=== PATIENT | female | born 1970 | race Caucasian/White ===

== ENCOUNTER → 2020-06-26 15:32 | Outpatient (CLI) | payer BC, SELFPAY ==
--- NOTE | ~2020-06-26 | US_ITS ---
EXAMINATION: US thyroid DATE: 06/26/2020 15:57 INDICATION: Genetic carrier of other disease. TECHNIQUE: Multiple ultrasound images of the thyroid were obtained. COMPARISON: Chest CT 09/26/2018 FINDINGS: The right thyroid lobe measures 3.6 x 1.3 x 1.3 cm. The left thyroid lobe measures 3.4 x 0.7 x 0.9 c m. The thyroid demonstrates heterogeneous echogenicity. Vascularity is normal. In the left thyroid l obe, there is a 6 mm solid, hyperechoic, uoazs-iocu-owzd nodule with ill-defined margin without echog enic foci (TI-RADS TR3). IMPRESSION: 1. Small thyroid nodule, likely not clinically significant. No follow-up is needed. Reviewed, dictated and finalized at location A. IMPRESSION: 1. Small thyroid nodule, likely not clinically significant. No follow-up is nee ded.
== END ==
PROVIDERS: Visit Provider Family Medicine
DX: Z14.8 Genetic carrier of other disease (principal); E04.9 Nontoxic goiter, unspecified
CPT/HCPCS: 76536

== ENCOUNTER 2020-07-19 02:40 | Outpatient (CLI) | payer BC, SELFPAY ==
[2020-07-19 23:12] LABS: SARS-CoV-2 RNA PCR Negative
== END 2020-07-19 02:41 | disposition home or self-care (01) ==
LOC: ANHCOVIDDT 02:40
PROVIDERS: PCP Family Medicine; Visit Provider Internal Medicine Gastroenterology
DX: Z01.812 Encounter for preprocedural laboratory examination (principal); Z20.828 Contact with and (suspected) exposure to other viral communicable diseases
CPT/HCPCS: 87635; C9803; U0003

== ENCOUNTER 2020-07-22 00:14 | Day surgery (SDC) | payer BC, SELFPAY ==
[2020-07-16 11:19] VITALS: BMI 27.1
[2020-07-22] MEDS: LACTATED RINGERS 1,000 ML 150 ML IV CONT (07:02)
[2020-07-22 07:03] VITALS: BP 126/84; PULSE 80; RESP 16; TEMP 36.6; O2SAT 98; BMI 27.2
--- NOTE | 2020-07-22 07:37 | WPDANESEPPF ---
Anes - Initial Pre Proc Eval Procedure: Operation Date: 07/22/20 08:00 Proposed Procedures p Screening Colonoscopy - All Marte MD Date/Time: 07/22/20 07:37 Surgeon: All Marte MD Pre Op Diagnosis: Neoplasm Screening/ Hx Colon Polyps Patient Data Age: 50 Gender: F Height: 5 ft 7 in Weight: 79 kg Last Vital Signs Temp 36.6 C 07/22/20 07:03 Pulse 80 07/22/20 07:03 Resp 16 07/22/20 07:03 BP 126/84 07/22/20 07:03 Pulse Ox 98 07/22/20 07:03 Allergies Allergy/AdvReac Type Severity Reaction Status Date / Time Sulfa (Sulfonamide Allergy Intermediate face Verified 07/22/20 06:46 Antibiotics) swelled up--hives--throat swelled inside doxycycline AdvReac Mild esophageal Verified 07/22/20 06:46 erosion. No allergy. Home Medications Medication Instructions Recorded Confirmed Type letrozole 2.5 mg tablet 2.5 mg PO DAILY 11/10/19 07/16/20 History atorvastatin 10 mg tablet 10 mg PO DAILY #90 tablet 11/21/19 07/16/20 Rx omeprazole 40 mg capsule,delayed 40 mg PO DAILY #90 cap 11/21/19 07/16/20 Rx release levothyroxine 75 mcg tablet 75 mcg PO DAILY #90 tablet 11/22/19 07/16/20 Rx calcium 600 mg-D3 800 unit-mag11 1 tablet PO QID tablet 02/06/20 07/16/20 History 50 lz-cruf-wxpaun-rashawn-s.borat tablet loratadine 10 mg tablet 10 mg PO DAILY 02/06/20 07/16/20 History magnesium 200 mg tablet 200 mg PO DAILY 02/06/20 07/16/20 History omega-3 fatty acids 1,000 mg 1,000 mg PO DAILY 02/06/20 07/16/20 History capsule prasterone (dhea) 6.5 mg vaginal 1 insert VAGINAL DAILY 02/06/20 07/16/20 History insert vitamin B complex 1 tablet PO DAILY 02/06/20 07/16/20 History spironolactone 100 mg tablet 100 mg PO BID #180 tablet 02/22/20 07/16/20 Rx naproxen sodium [Aleve] 220 mg PO Q12H PRN 07/16/20 07/16/20 History Patient hx anesthesia problems: none Family hx anesthesia problems: none PMFSH Past Medical History Medical History (Updated 06/27/20 @ 08:49 by Anna Dean MD) Malignant neoplasm of unspecified site of right female breast Normal colonoscopy 2012 Family History Family History Father Hypertension Social History Social History Smoking status: Never smoker Second hand tobacco smoke exposure: No Alcohol intake: current Drinks per week: 2 Substance use: never Substance use type: does not use Living arrangements: with family Spiritual care concerns: No Anes - Eval Final PreProcedure Day of Procedure 07/22/20 07:37 Patient weight: overweight Heart: regular rate and rhythm Lungs: clear to auscultation Airway: Mallampati scale class II Neurological: alert and oriented Last oral intake: >/= 8 hours ASA classification: III Emergent: no Anesthetic plan: proceed Anesthesia type and monitoring: general GIVS and standard monitoring Informed Consent: The patient's anesthetic plan and its attendant risks and benefits were discussed with the patient/family/POA. Questions were solicited and answers provided to the satisfaction of the patient/family/POA.
--- NOTE | 2020-07-22 08:04 | WPDGICN ---
Assessment and Plan Assessment and plan (1) Personal history of colonic polyps: Code(s): Z86.010 - Personal history of colonic polyps Status: Acute Assessment and Plan: Patient gives a history of colon polyps 10 years ago. Plan is for surveillance colonoscopy now on a 5 year intervals in the future. (2) History of cancer of right breast: Code(s): Z85.3 - Personal history of malignant neoplasm of breast Status: Acute GI Consult Note Consult date/time: 07/22/20 08:04 HPI: Hafsa Brooks is a 50 year old female Seen in evaluation at the request of Dr. Dean. Patient presents for screening colonoscopy. Patient states that she has a history of colon polyps 10 years ago. Her current weight appetite bowel movements are normal. She recently has been undergoing treatment for breast cancer. She presents today for surveillance examination. She denies any blood in her stools. Her family history is noncontributory. Review of Systems Review of Systems: All systems reviewed & are unremarkable except as noted in HPI and below PMFSH Past Medical History Medical History Malignant neoplasm of unspecified site of right female breast Normal colonoscopy 2012 Family History Family History Father Hypertension Social History Social History Smoking status: Never smoker Second hand tobacco smoke exposure: No Alcohol intake: current Drinks per week: 2 Substance use: never Substance use type: does not use Living arrangements: with family Spiritual care concerns: No Meds Home Medications and Allergies Home Medications Medication Instructions Recorded Confirmed Type letrozole 2.5 mg tablet 2.5 mg PO DAILY 11/10/19 07/16/20 History atorvastatin 10 mg tablet 10 mg PO DAILY #90 tablet 11/21/19 07/16/20 Rx omeprazole 40 mg capsule,delayed 40 mg PO DAILY #90 cap 11/21/19 07/16/20 Rx release levothyroxine 75 mcg tablet 75 mcg PO DAILY #90 tablet 11/22/19 07/16/20 Rx calcium 600 mg-D3 800 unit-mag11 1 tablet PO QID tablet 02/06/20 07/16/20 History 50 ko-wyan-oiqssp-rashawn-s.borat tablet loratadine 10 mg tablet 10 mg PO DAILY 02/06/20 07/16/20 History magnesium 200 mg tablet 200 mg PO DAILY 02/06/20 07/16/20 History omega-3 fatty acids 1,000 mg 1,000 mg PO DAILY 02/06/20 07/16/20 History capsule prasterone (dhea) 6.5 mg vaginal 1 insert VAGINAL DAILY 02/06/20 07/16/20 History insert vitamin B complex 1 tablet PO DAILY 02/06/20 07/16/20 History spironolactone 100 mg tablet 100 mg PO BID #180 tablet 02/22/20 07/16/20 Rx naproxen sodium [Aleve] 220 mg PO Q12H PRN 07/16/20 07/16/20 History Allergies Allergy/AdvReac Type Severity Reaction Status Date / Time Sulfa (Sulfonamide Allergy Intermediate face Verified 07/22/20 06:46 Antibiotics) swelled up--hives--throat swelled inside doxycycline AdvReac Mild esophageal Verified 07/22/20 06:46 erosion. No allergy. Vital Signs Vital Signs - 24 hr 07/22/20 07:03 Temperature 97.8 F Pulse Rate 80 Respiratory Rate 16 Blood Pressure 126/84 Pulse Oximetry 98 Exam Narrative: Exam Narrative: Physical exam reveals patient to be alert. Vital signs stable. HEENT exam Unremarkable. Lungs are clear to auscultation and percussion. Heart is without murmur or extra sounds. Abdominal exam bowel sounds are present soft nontender with no organomegaly. Digital external rectal exam normal.
[2020-07-22 08:28] VITALS: BP 126/84; PULSE 73; RESP 25; O2SAT 98
[2020-07-22 08:38] VITALS: BP 106/67; PULSE 72; RESP 23; O2SAT 98
[2020-07-22 08:48] VITALS: BP 104/69; PULSE 62; RESP 20; O2SAT 99
== END 2020-07-22 09:00 | disposition home or self-care (01) ==
PROVIDERS: PCP Family Medicine; Visit Provider Internal Medicine Gastroenterology
PROC: 0DJD8ZZ Inspection of Lower Intestinal Tract, Via Natural or Artificial Opening Endoscopic (ICD-10-PCS; CPT 45378; principal; 2020-07-22 08:00)
DX: Z12.11 Encounter for screening for malignant neoplasm of colon (principal); K64.8 Other hemorrhoids; K57.30 Diverticulosis of large intestine without perforation or abscess without bleeding; Z86.010 Personal history of colon polyps; Z85.3 Personal history of malignant neoplasm of breast; Z79.811 Long term (current) use of aromatase inhibitors
CPT/HCPCS: 45378; J2704; J7120

== ENCOUNTER 2020-10-31 12:33 | Outpatient (CLI) | payer BC, SELFPAY ==
--- NOTE | ~2020-10-31 | CT_ITS ---
EXAMINATION: CT abdomen pelvis wo con EXAM DATE: 10/31/2020 13:26 INDICATION: R10.32 - Left lower quadrant pain . TECHNIQUE: Spiral CT of the abdomen and pelvis was performed without contrast. Axial, coronal and s agittal images were reviewed. The dose-length product (DLP) for this examination was 524.81 mGy-cm. The exposure was tailored according to patient size (auto mA exposure control), and iterative recons truction (ASIR) was used as additional dose reduction technique. There is no prior study for compari son. FINDINGS: The liver, spleen, adrenal glands and pancreas are unremarkable. There are cholecystectomy clips. There is no nephrolithiasis or hydronephrosis. The uterus is unremarkable. The bladder i s unremarkable. There is no retroperitoneal or pelvic lymphadenopathy. The appendix is normal. The stomach and small bowel are unremarkable. There is mild to moderate scat tered colonic diverticulosis. There is no adjacent inflammatory change to suggest diverticulitis. Th ere is expected amount of colonic stool. No free intraperitoneal gas. The heart is normal in size . There are no pericardial or pleural effusions. The lung bases are unremarkable. There are no ost eoblastic or osteolytic lesions identified. IMPRESSION: 1. No acute intra-abdominal findings. 2. Mild to moderate colonic diverticulosis. Reviewed, dictated and finalized at location A. 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
== END 2020-10-31 12:34 | disposition home or self-care (01) ==
PROVIDERS: PCP Family Medicine; Visit Provider Family Medicine
DX: R10.32 Left lower quadrant pain (principal); Z14.8 Genetic carrier of other disease; K57.30 Diverticulosis of large intestine without perforation or abscess without bleeding
CPT/HCPCS: 74176

== ENCOUNTER 2021-10-07 12:42 | Emergency (ER) | payer BC, SELFPAY ==
--- NOTE | 2021-10-07 12:46 | ED.URI ---
HPI - URI/Sore Throat General Chief Complaint: Upper Respiratory Infection Stated Complaint: Cough Time Seen by Provider: 10/07/21 12:46 Source: patient and RN notes reviewed History of Present Illness HPI Narrative: Patient is a 51-year-old female who presents the urgent care with complaints of a chronic deep harsh cough. Patient states that she has had it since and was on a Z-Kd approximately 1 week ago without much improvement. Patient states that her prescriber did send her cough syrup with codeine but she has not yet picked it up from the pharmacy. Patient denies of any history of COPD or asthma. Patient denies of any fevers or chest pain. States that the cough is causing some back pain. Patient has not been tested for Covid or influenza but denies of any other upper respiratory complaints. No acute distress noted. Patient aware of the plan of care. Some parts of this dictation were generated by voice recognition software and may contain typographical and/or grammatical inaccuracies. Related Data Home Medications Medication Instructions Recorded Confirmed letrozole 2.5 mg tablet 2.5 mg PO DAILY 11/10/19 10/07/21 loratadine 10 mg tablet 10 mg PO DAILY 02/06/20 10/07/21 vitamin B complex 1 tablet PO DAILY 02/06/20 10/07/21 naproxen sodium [Aleve] 220 mg PO Q12H PRN 07/16/20 10/07/21 prasterone (dhea) [Intrarosa] 6.5 mg VAGINAL DIRECTED 10/07/21 10/07/21 Allergies Allergy/AdvReac Type Severity Reaction Status Date / Time Sulfa (Sulfonamide Allergy Intermediate face Verified 10/07/21 12:50 Antibiotics) swelled up--hives--throat swelled inside metronidazole Allergy Unknown Rash Verified 10/07/21 12:50 doxycycline AdvReac Mild esophageal Verified 10/07/21 12:50 erosion. No allergy. Review of Systems Review of Systems: CONSTITUTIONAL: Denies fever, chills, or sweats. EYES: Denies visual changes, redness, or discharge. ENT: Denies rhinorrhea, congestion, sore throat, or otalgia. CARDIOVASCULAR: Denies chest pain, palpitations, or edema. RESPIRATORY: Reports of harsh cough without dyspnea GASTROINTESTINAL: Denies abdominal pain, nausea, vomiting, or diarrhea. GENITOURINARY: Denies dysuria or hematuria. SKIN: Denies rash or itching. MUSCULOSKELETAL: Denies back pain, joint pain, or myalgia. NEUROLOGIC: Denies headache, numbness, or weakness. All other systems reviewed are negative, except as documented in HPI. [facility] Past Medical History Medical History Abdominal pain, LLQ Allergic rhinitis Malignant neoplasm of unspecified site of right female breast Normal colonoscopy 2012 Overweight (BMI 25.0-29.9) Residual hemorrhoidal skin tags Surgical History Surgical History History of bilateral salpingo-oophorectomy uterus intact. hx breast cancer/ check-2 carrier Family History Family History Father Hypertension Social History Social History Second hand tobacco smoke exposure: No Alcohol intake: current Drinks per week: 2 Substance use: never Substance use type: does not use Spiritual care concerns: No Comments At the time of my signature, I reviewed and agree with the nursing past medical, surgical, social, and family history. There is no relevant family history pertinent to the patient complaint. Exam Narrative: GENERAL: This is a well-nourished, well-developed patient, in no apparent distress. HEAD: normocephalic, atraumatic. EYES: PERRL. Sclera clear/white. Vision is grossly intact. EARS: External ears normal, auditory canals clear and without drainage, TMs normal without perforation. Hearing grossly intact. NOSE: External nose normal with no obvious nasal discharge, nares without redness, clear rhinorrhea. THRO
[2021-10-07 12:49] VITALS: BP 160/95; PULSE 69; RESP 20; TEMP 36.6; O2SAT 100
== END 2021-10-07 13:02 | disposition home or self-care (01) ==
PROVIDERS: Emergency Provider Nurse Practitioner Family; PCP Family Medicine
DX: J40 Bronchitis, not specified as acute or chronic (principal); Z85.3 Personal history of malignant neoplasm of breast
CPT/HCPCS: 99213; G0463

== ENCOUNTER 2022-10-25 13:50 | Emergency (ER) | payer BC, SELFPAY ==
--- NOTE | 2022-10-25 13:52 | ED.DIZZY ---
HPI - Dizziness General Chief Complaint: Dizziness Stated Complaint: LIGHT HEADED/HIGH BLOOD PRESSURE/BLURRED VISION Time Seen by Provider: 10/25/22 13:55 Source: patient, family and RN notes reviewed History of Present Illness HPI Narrative: Patient is a 52-year-old female who presents to urgent care with complaints of anxiety, high blood pressure, palpitations, dizziness. Patient lost her from suicide approximately 6 or 7 weeks ago and she has been having a lot of changes in medications due to her anxiety, stress rash. Patient had changes with her Xanax, hydroxyzine, Xyzal, Singulair and Tagamet. Changes have been occurring over the last couple weeks. Patient states she has only taken a few doses of the Zoloft but has reported some heightened anxiety since the medication. Patient states that last night she was at dinner and was having a lot of tunnel vision, dizziness and anxiety. States that she went home and noted her blood pressure was elevated. States that she took the Xanax and hydroxyzine and within 1 hour felt much better within normal blood pressure reading. Patient states she has had some palpitations that come and go. States that since seen the forensic materials engineer in changing her medications to Xyzal, Singulair and and Tagamet-she has seen an improvement in the rash is nearly subsided. Patient is tearful and does report a lot of anxiety and stress within the last several weeks. Patient's son is with her at the bedside and did stay with her last night. Patient is currently denying any chest pain or shortness of breath. No other acute complaints. Patient aware of the plan of care. Some parts of this dictation were generated by voice recognition software and may contain typographical and/or grammatical inaccuracies. Related Data Home Medications Medication Instructions Recorded Confirmed letrozole 2.5 mg tablet 2.5 mg PO DAILY 11/10/19 10/13/22 vitamin B complex (B 1 tablet PO DAILY 02/06/20 10/13/22 Complex-Vitamin B12 tablet) naproxen sodium 220 mg tablet 220 mg PO Q12H PRN Pain 07/16/20 10/13/22 (Aleve) omega 5-cph-tzr-fish oil 100 cap PO 01/08/22 10/13/22 mg-160 mg-1,000 mg capsule (Fish Oil) calcium carbonate 500 mg-vitamin 3 tablet PO DAILY 08/11/22 10/13/22 D3 15 mcg (600 unit) tablet (Os-Dylon 500 + D3) montelukast 10 mg tablet mg 10/25/22 Allergies Allergy/AdvReac Type Severity Reaction Status Date / Time Sulfa (Sulfonamide Allergy Intermediate face Verified 10/25/22 13:54 Antibiotics) swelled up--hives--throat swelled inside metronidazole Allergy Unknown Rash Verified 10/25/22 13:54 doxycycline AdvReac Mild esophageal Verified 10/25/22 13:54 erosion. No allergy. Review of Systems Review of Systems: CONSTITUTIONAL: Denies fever, chills, or sweats. EYES: Denies visual changes, redness, or discharge. ENT: Denies rhinorrhea, congestion, sore throat, or otalgia. CARDIOVASCULAR: Reports palpitation RESPIRATORY: Denies cough or dyspnea. GASTROINTESTINAL: Denies abdominal pain, nausea, vomiting, or diarrhea. GENITOURINARY: Denies dysuria or hematuria. SKIN: Denies rash or itching. MUSCULOSKELETAL: Denies back pain, joint pain, or myalgia. NEUROLOGIC: Denies headache, numbness, or weakness. Reports of lightheadedness PSYCHIATRIC: Reports of persistent anxiety All other systems reviewed are negative, except as documented in HPI. [facility] Past Medical History Medical History Abdominal bloating Abdominal pain, LLQ Allergic rhinitis Arthritis hip & jaw Breast cancer (~2013) radiation & chemotherapy Hypertension Malignant neoplasm of unspecified site of right female breast Normal colonoscopy 2012 Overweight (BMI 25.0-29.9) Residual hemorrhoidal skin tags Squamous cell skin cancer Surgical History Surgical History History of bilateral salpingo-oo
[2022-10-25 13:56] VITALS: BP 149/91; PULSE 71; RESP 16; TEMP 37.1; O2SAT 100
[2022-10-25 14:03] VITALS: BP 149/91; PULSE 71; RESP 16; TEMP 37.1; O2SAT 100
--- NOTE | 2022-10-25 14:18 | ECG_ITS ---
Measurements Intervals [place] Rate: 61 P: 22 [place]: 161 QRS: 53 QRSD: 94 T: 40 QT: 437 QTc: 442 Interpretive Statements SINUS RHYTHM NORMAL ECG NO PREVIOUS ECG AVAILABLE FOR COMPARISON Electronically Signed On 10-26-2022 7:48:49 BAIL BONDING AGENT by Mynor Mi D.O.
== END 2022-10-25 14:40 | disposition home or self-care (01) ==
PROVIDERS: Emergency Provider Nurse Practitioner Family; PCP Family Medicine
DX: F41.0 Panic disorder [episodic paroxysmal anxiety] (principal); I10 Essential (primary) hypertension; Z85.3 Personal history of malignant neoplasm of breast; Z85.828 Personal history of other malignant neoplasm of skin
CPT/HCPCS: 93005; 99213; G0463

== ENCOUNTER 2022-10-27 10:49 | Outpatient (CLI) | payer BC, SELFPAY ==
[2022-10-27 20:32] LABS: Alanine Aminotransferase 44 U/L (6-35); Albumin Level 4.6 g/dL (3.5-5.1); Alkaline Phosphatase 61 U/L (38-126); Anion Gap 7 mmol/L (8-16); Aspartate Amino Transferase 60 U/L (14-36); Bilirubin,Total 0.7 mg/dL (0.2-1.3); Blood Urea Nitrogen 11 mg/dL (7-17); Calcium 9.7 mg/dL (8.4-10.2); Carbon Dioxide 29 mmol/L (22-30); Chloride 105 mmol/L (98-107); Estimated Glomerular Filt Rate > 60; Glucose 81 mg/dL (65-110); Potassium 4.3 mmol/L (3.4-5.0); Sodium 141 mmol/L (137-145)
[2022-10-27 20:41] LABS: Basophils Absolute Auto 0.1 K/mm3 (0.0-0.1); Basophils Percent Auto 1.1 % (0.2-1.2); Eosinophils Absolute Auto 0.1 K/mm3 (0-0.3); Hematocrit 42.3 % (37.0-47.0); Hemoglobin 14.4 g/dL (12.0-15.0); Immature Granulocyte Absolute 0.04 K/mm3 (0.00-0.031); Immature Granulocyte Percent A 0.4 % (0-0.5); Lymphocytes Absolute Auto 2.07 K/mm3 (0.9-3.2); Lymphocytes Percent Auto 20.7 % (18.3-44.2); Mean Platelet Volume 11.1 fl (7.4-10.4); Monocytes Absolute Auto 0.9 K/mm3 (0.1-0.6); Monocytes Percent Auto 8.5 % (2.6-8.5); Neutrophils Absolute Auto 6.8 K/mm3 (1.3-6.7); Neutrophils Percent Auto 68.3 % (45.5-73.1); Platelet Count Result 355 k/mm3 (150-375); Red Blood Count 4.65 M/mm3 (4.2-5.4); Red Cell Distribution Width 13.3 % (11.5-14.5)
[2022-10-27 21:06] LABS: Free T4 Free Thyroxine 1.13 ng/mL (0.78-2.19); Vitamin D 25 Hydroxy 69.6 ng/mL
[2022-10-27 21:30] LABS: Folic Acid 15.8 ng/mL (2.76->20)
== END 2022-10-27 10:50 | disposition home or self-care (01) ==
LOC: ANHGOSHLAB 10:50
PROVIDERS: PCP Family Medicine; Visit Provider Physician Assistant
DX: E03.9 Hypothyroidism, unspecified (principal); E04.1 Nontoxic single thyroid nodule; F43.21 Adjustment disorder with depressed mood; Z79.899 Other long term (current) drug therapy
CPT/HCPCS: 36415; 80053; 82306; 82607; 82746; 84439; 84443; 85025

== ENCOUNTER 2022-10-29 08:29 | Outpatient (CLI) | payer BC, SELFPAY ==
--- NOTE | ~2022-10-29 | NM_ITS ---
EXAMINATION: NM daniela stress w perfusion DATE: 10/29/2022 10:27 INDICATION: Cardiac assessment prior to high-risk surgery. TECHNIQUE: Rest images were obtained following intravenous administration of 8.52 mCi Tc99m tetrofosm in (Myoview). The patient was infused intravenously with Lexiscan (Regadenoson). Then, 33.2 mCi Tc99m tetrofosmin (Myoview) was administered intravenously, and stress images were obtained. Data was aren nstructed into short axis and horizontal and vertical long axis SPECT images. Gated SPECT images were also obtained. COMPARISON: None. FINDINGS: There is no definite reversible or fixed perfusion abnormality to suggest ischemia or infar ction. There is normal left ventricular chamber size, wall motion and ejection fraction. Left ventr icular ejection fraction measures >70%. IMPRESSION: 1. Normal myocardial perfusion at rest and during stress. 2. Left ventricular ejection fraction measuring >70%. Reviewed, dictated and finalized at location A. 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
--- NOTE | 2022-10-29 08:55 | EST_ITS ---
Patient Info Name: Hafsa Brooks Age: 52 years : 1970 Gender: Female Ht: 67 in Wt: 185 lbs BSA: 2.01 m2 HR: 60 bpm BP: 137 / 75 mmHg Heart Rhythm: Sinus Rhythm Exam Date: 10/29/2022 9:25 AM Exam Location: [facility] ([place] Stress Patient Status: Outpatient Admit Date: 10/29/2022 Staff Ordering Physician: Anna Dean MD Attending Provider: Anna Dean MD Exercise Technologist: Charley Vickers CT Nurse: ambreen merchant Exam Type: CA stress daniela w NM Study Info Indications Z01.810 - Encounter for preprocedural cardiovascular examination A regadenoson stress test was performed. Summary 1. No abnormal ST/T wave changes diagnostic of ischemia with Lexiscan. 2. Please correlate with nuclear medicine images, reported separately. Protocol: Lexiscan Stress ECG Details Stage: REST Duration (min): 1 min : 16 sec HR (bpm): 61 SBP (mmHg): 137 DBP (mmHg): 75 Stage: REST Duration (min): 5 min : 55 sec HR (bpm): 65 SBP (mmHg): 129 DBP (mmHg): 87 Stage: STAGE 1 Duration (min): 1 min : 0 sec HR (bpm): 100 SBP (mmHg): 129 DBP (mmHg): 87 Stage: RECOVERY Duration (min): 1 min : 0 sec HR (bpm): 97 SBP (mmHg): 129 DBP (mmHg): 87 Stage: RECOVERY Duration (min): 2 min : 0 sec HR (bpm): 86 SBP (mmHg): 129 DBP (mmHg): 87 Stage: RECOVERY Duration (min): 3 min : 0 sec HR (bpm): 82 SBP (mmHg): 117 DBP (mmHg): 82 Stage: RECOVERY Duration (min): 3 min : 20 sec HR (bpm): 81 SBP (mmHg): 117 DBP (mmHg): 82 Rest HR: 65 bpm Peak HR: 100 bpm Rest Sys BP: 129 mmHg Peak Sys BP: 117 mmHg Max Pred HR: 167 bpm % Max Pred HR: 60 % Target HR: 142 bpm Max RPP: 11,700 bpm*mmHg Total Time: 1 min : 0 sec Rest [place] BP: 87 mmHg Peak [place] BP: 82 mmHg Total Dose: 0.4 mg Resting ECG Sinus rhythm. Stress ECG Sinus tachycardia. No abnormal ST/T wave changes diagnostic of ischemia with Lexiscan. Arrhythmias None. Report Signatures
== END 2022-10-29 08:30 | disposition home or self-care (01) ==
LOC: ANHCARD 08:30
PROVIDERS: PCP Family Medicine; Visit Provider Family Medicine
DX: Z01.810 Encounter for preprocedural cardiovascular examination (principal)
CPT/HCPCS: 78452; 93017; A9502; J2785

== ENCOUNTER 2023-02-18 10:35 | Outpatient (CLI) | payer BC, SELFPAY ==
[2023-02-18 18:58] LABS: Kit Draw Collected
== END 2023-02-18 10:36 | disposition home or self-care (01) ==
LOC: ANHGOSHLAB 10:36
PROVIDERS: PCP Family Medicine; Visit Provider Family Medicine
DX: E78.2 Mixed hyperlipidemia (principal)
CPT/HCPCS: 36415

== ENCOUNTER → 2023-04-29 14:10 | Outpatient (CLI) | payer BC, SELFPAY ==
--- NOTE | ~2023-04-29 | XR_ITS ---
XR ankle LT min 3V DATE: 04/29/2023 14:27 INDICATION: Left ankle pain TECHNIQUE: 4 views COMPARISON: None FINDINGS: Mild to moderate plantar calcaneal enthesopathy. No fracture or dislocation of the ankle or disruption of the ankle mortise is detected. No periosteal reaction or bone destruction. IMPRESSION: Plantar calcaneal enthesopathy Reviewed, dictated and finalized at location L.
== END ==
PROVIDERS: PCP Family Medicine; Visit Provider Family Medicine
DX: M77.32 Calcaneal spur, left foot (principal)
CPT/HCPCS: 73610

== ENCOUNTER 2023-08-09 14:01 | Outpatient (CLI) | payer BC, SELFPAY ==
--- NOTE | ~2023-08-09 | US_ITS ---
EXAMINATION: US art doppler w press LE BI DATE: 08/09/2023 15:05 INDICATION: Bilateral lower limb peripheral arterial occlusive disease TECHNIQUE: Segmental pressures and plethysmographic and Doppler waveforms of the brachial and lower e xtremity arteries were obtained. COMPARISON: None. FINDINGS: Left brachial artery pressure of 129 mm Hg. The right brachial artery pressures unable to be obtained due to prior right breast cancer. The right high thigh pressure index is 1.31 (normal > 1.2). Left h igh thigh pressure index was unable be obtained due to inability to occlude the vessels. The right ankle-brachial index (FRANCO) is 1.27 (normal >= 0.9-1). The right great toe-brachial index (T BI) is 0.67 (normal >= 0.6-0.8). The right lower extremity segmental pressure gradients are normal (n ormal gradients <= 20-30 mmHg between adjacent levels on the same leg or the same levels on the two l egs). Arterial waveforms are triphasic at the right common femoral, superficial femoral, popliteal an d posterior tibial arteries and biphasic at the right dorsalis pedis artery, all with brisk systolic upstrokes. The left FRANCO is 1.23. The left TBI is 0.74. The left lower extremity segmental pressure gradients are normal. Arterial waveforms are triphasic with brisk systolic upstrokes throughout the arteries of th e left lower limb. IMPRESSION: 1. Normal FRANCO's and TBI's bilaterally. No significant occlusive disease. Reviewed, dictated and finalized at location A.
== END 2023-08-09 14:02 | disposition home or self-care (01) ==
PROVIDERS: PCP Family Medicine; Visit Provider Podiatrist Foot & Ankle Surgery
DX: I73.9 Peripheral vascular disease, unspecified (principal)
CPT/HCPCS: 93923

== ENCOUNTER 2023-08-24 10:44 | Outpatient (CLI) | payer BC, SELFPAY ==
[2023-08-24 18:30] LABS: Uric Acid 5.7 mg/dL (2.5-7.5)
== END 2023-08-24 10:45 | disposition home or self-care (01) ==
LOC: ANHGOSHLAB 10:45
PROVIDERS: PCP Family Medicine; Visit Provider Family Medicine
DX: M79.676 Pain in unspecified toe(s) (principal)
CPT/HCPCS: 36415; 84550

== ENCOUNTER 2023-11-27 07:19 | Emergency (ER) | payer BC, SELFPAY ==
[2023-11-27 07:34] VITALS: BP 122/88; PULSE 77; RESP 18; TEMP 36.6; O2SAT 100
--- NOTE | 2023-11-27 09:40 | PC.NURSE ---
pt states she just called [facility] and she is going to go there because they have a 28 min wait time. states she cant take the pain and diarrhea anymore.
== END 2023-11-27 10:02 | disposition left against medical advice (07) ==
PROVIDERS: PCP Family Medicine
DX: R19.7 Diarrhea, unspecified (principal)
CPT/HCPCS: 99199

== ENCOUNTER 2024-01-05 15:09 | Outpatient (RCR) | payer BC, SELFPAY ==
--- NOTE | 2024-01-05 16:39 | OPREHPOC ---
Outpatient Therapy Plan of Care This is a Multidisciplinary Plan of Care that may contain components documented by all disciplines (PT, OT, and ST.) PT Problem 1 PT Problem #1 Knowledge Deficit PT Goal 1 Goal *indep with HEP PT Problem 2 PT Problem #2 Pain PT Goal 1 Goal 1* pt report pain at worst in legs of 4/10 2* pt self assessment LEFS of 40% limitation in activity 3* pt report with sleeping awaken 1x/night due to pain PT Problem 3 PT Problem #3 Impaired Flexibility PT Goal 1 Goal increase mobility of knee joint, to improve transfer and gait skills: active knee ROM in sitting 1* R flexion 130' 2* L flexion 130' 3* R extension 0' 4* L extension 0' PT Problem 4 PT Problem #4 Impaired Strength PT Goal 1 Goal increase strength of R and L LE to improve walking and mobility 1* transfer sit/stand without use of UE 2* pt stand and walk with bilateral knee extension 0'; PT Problem 5 PT Problem #5 Edema PT Goal 1 Goal decrease edema over knees, to improve mobility and ROM, with decrease pain 1* R knee decrease 3/3 circumferential measurements by 3 cm 2* L knee decrease 3/3 circumferenital measurements by 3 cm
--- NOTE | 2024-01-05 16:40 | PTOPEVAL1 ---
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 new prescription for naproxen; Assessment PT Clinical Summary Hafsa has the diagnosis of weakness. Onset of pain, swelling and weakness of legs, after taking a new antibiotics- metronidiazole and levofloxacin. One of the side effects of the med is tendonitis. Standing and sleeping are disrupted due to pain and difficulties with mobility. Her medical history includes breast cancer with radiation and chemo therapy, R UE lymphedema, back surgery/fusion about 1 year ago and recent loss of her with a traumatic incident. With the evaluation: LEFS self assessment score of 75% limitation in activity; decreased R and L knee ROM and pain with motions' edema over knees and thighs with soft feel of tissue; Skilled PT services are indicated for modalities to decrease pain and edema; therapeutic exercises to increase knee ROM and strength, with monitoring of pain as progr
--- NOTE | 2024-01-19 15:47 | PTOPDC ---
Assessment and note entered by Amie Tom, PT Discharge Information Assessment Status Discharge - Pt Not Present Diagnosis weakness Onset Dec 01, 2023 Assessment PT Clinical Summary Ms. Brooks attended the PT evaluation, then called and canceled her appointments, stated she was going to go to therapy closer to her home. The goals were not addressed. Discharge PT per pt request. Plan of Care PT Services Indicated No
== END 2024-01-19 16:20 | disposition home or self-care (01) ==
LOC: ANHPT 15:09
PROVIDERS: PCP Family Medicine; Visit Provider Family Medicine
DX: M62.81 Muscle weakness (generalized) (principal)
CPT/HCPCS: 97016; 97110; 97162

== ENCOUNTER 2024-02-09 14:35 | Outpatient (CLI) | payer BC, SELFPAY ==
--- NOTE | ~2024-02-09 | XR_ITS ---
XR foot RT min 3V DATE: 02/09/2024 14:54 INDICATION: 5th toe complaint TECHNIQUE: 5 views COMPARISON: None FINDINGS: There is hallux valgus and bunion deformity. There is moderate osteoarthritis at the first metatarsophalangeal joint. No fracture or dislocation, periosteal reaction or bone destruction. Mild plantar calcaneal enthesopathy. IMPRESSION: Mild plantar calcaneal enthesopathy Hallux valgus and bunion deformity Reviewed, dictated and finalized at location A.
== END 2024-02-09 14:36 ==
LOC: GOSHIMG 14:36
PROVIDERS: PCP Family Medicine; Visit Provider Family Medicine
DX: M77.31 Calcaneal spur, right foot (principal); M20.11 Hallux valgus (acquired), right foot
CPT/HCPCS: 73630

== ENCOUNTER 2024-03-01 01:15 | Day surgery (SDC) | payer BC, SELFPAY ==
[2024-02-15 13:37] VITALS: BMI 32.0
--- NOTE | 2024-02-29 12:55 | WPDANESEPPF ---
Anes - Initial Pre Proc Eval Procedure: Operation Date: 03/01/24 08:00 Proposed Procedures p Colonoscopy - Nato Elise MD Date/Time: 02/29/24 12:55 Surgeon: Nato Elise MD Pre Op Diagnosis: Hemorrhage of anus and rectum, other hemorrhoids Patient Data Age: 53 Gender: F Height: 1.68 m Weight: 90 kg Allergies Allergy/AdvReac Type Severity Reaction Status Date / Time Sulfa (Sulfonamide Allergy Intermediate face Verified 02/09/24 14:09 Antibiotics) swelled up--hives--throat swelled inside metronidazole Allergy Unknown Rash Verified 02/09/24 14:09 levofloxacin [From Levaquin] AdvReac Severe tendinopathy, Verified 02/09/24 14:09 joint pain and swelling sertraline AdvReac Severe Diarrhea Verified 02/09/24 14:09 omalizumab [From Xolair] AdvReac Intermediate high blood Verified 02/09/24 14:09 pressure doxycycline AdvReac Mild esophageal Verified 02/09/24 14:09 erosion. No allergy. sertraline AdvReac Intermediate Diarrhea Uncoded 02/09/24 14:09 Home Medications Medication Instructions Recorded Confirmed Type letrozole 2.5 mg tablet 2.5 mg PO DAILY 11/10/19 02/15/24 History vitamin B complex (B 1 tablet PO DAILY 02/06/20 02/15/24 History Complex-Vitamin B12 tablet) calcium carbonate 500 mg-vitamin 3 tablet PO DAILY 08/11/22 02/15/24 History D3 15 mcg (600 unit) tablet (Os-Dylon 500 + D3) levocetirizine 5 mg tablet (Xyzal) 5 mg PO DAILY 10/25/22 02/15/24 History levothyroxine 88 mcg tablet 88 mcg PO DAILY #90 tabs 11/26/22 02/15/24 Rx omeprazole 40 mg capsule,delayed See Rx Instructions .Route 07/20/23 02/15/24 Rx release .COMPLEX #90 caps atorvastatin 10 mg tablet 10 mg PO DAILY #90 tabs 10/01/23 02/15/24 Rx spironolactone 100 mg tablet See Rx Instructions .Route 10/01/23 02/15/24 Rx .COMPLEX #180 tabs buspirone 5 mg tablet 5 mg PO TID #90 tabs 12/06/23 02/15/24 Rx alprazolam 0.5 mg tablet 0.5 mg PO TID PRN anxiety #60 tabs 01/25/24 02/15/24 Rx folic acid 1 mg tablet 1 mg PO DAILY 02/09/24 02/15/24 History Patient hx anesthesia problems: none Family hx anesthesia problems: none Results Review: All pre-operative results and documents have been reviewed as part of the pre-operative evaluation. [facility] Past Medical History Medical History (Updated 02/29/24 @ 13:01 by Chuckie Guzman DO) Abdominal bloating Abdominal pain, LLQ Allergic rhinitis Anxiety and depression lost spouse 2021 Arthritis hip & jaw Breast cancer (~2013) radiation & chemotherapy Diverticulosis Hyperlipidemia Hypertension Malignant neoplasm of unspecified site of right female breast Normal colonoscopy 2019 Overweight (BMI 25.0-29.9) Residual hemorrhoidal skin tags Serous otitis media of left ear with rupture of tympanic membrane Squamous cell skin cancer Urticaria Surgical History Surgical History H/O right breast biopsy (~06/11/23) Benign H/O spinal fusion 2021 L2 - S1 anchored to tailbone History of bilateral salpingo-oophorectomy (04/25/15) elective--hx of breast cancer History of cholecystectomy (~1999) History of endometrial ablation (04/10/08) hscope Novasure endometrial ablation--heavy periods History of lumbar surgery (11/14/18) decompression of L% History of lumpectomy of right breast (03/27/14) 3 lymph nodes removed Family History Family History Father Hypertension Mother Hypertension Other , spouse Suicide Social History Social History Smoking status: Never smoker Second hand tobacco smoke exposure: No Alcohol intake: current Drinks per week: 2 Substance use: never Substance use type: does not use Lack of Transportation: No Lack of Food: Never True Current Housing: I Have Housing
[2024-03-01 06:50] VITALS: BP 123/85; PULSE 81; RESP 18; TEMP 36.1; O2SAT 100
[2024-03-01] MEDS: LACTATED RINGERS 1,000 ML 150 ML IV CONT (07:04)
--- NOTE | 2024-03-01 07:49 | PM.HPGS ---
History of Present Illness History of Present Illness Consent: Risks, benefits, and alternatives have been discussed and questions answered. Patient agrees to proceed with procedure. Chief complaint: polyp in colon by ct scan Narrative: Hafsa Brooks is a 53 year old female with colon polyp 4 years ago, earlier this year had CT scan a/p after gi infection that showed possible small polyp in left colon. Review of Systems Review of Systems: All systems reviewed & are unremarkable except as noted in HPI and below PMFSH Past Medical History Medical History (Updated 02/29/24 @ 13:01 by Chuckie Guzman DO) Abdominal bloating Abdominal pain, LLQ Allergic rhinitis Anxiety and depression lost spouse 2021 Arthritis hip & jaw Breast cancer (~2013) radiation & chemotherapy Diverticulosis Hyperlipidemia Hypertension Malignant neoplasm of unspecified site of right female breast Normal colonoscopy 2019 Overweight (BMI 25.0-29.9) Residual hemorrhoidal skin tags Serous otitis media of left ear with rupture of tympanic membrane Squamous cell skin cancer Urticaria Surgical History Surgical History H/O right breast biopsy (~06/11/23) Benign H/O spinal fusion 2021 L2 - S1 anchored to tailbone History of bilateral salpingo-oophorectomy (04/25/15) elective--hx of breast cancer History of cholecystectomy (~1999) History of endometrial ablation (04/10/08) hscope Novasure endometrial ablation--heavy periods History of lumbar surgery (11/14/18) decompression of L% History of lumpectomy of right breast (03/27/14) 3 lymph nodes removed Family History Family History Father Hypertension Mother Hypertension Other , spouse Suicide Social History Social History Smoking status: Never smoker Second hand tobacco smoke exposure: No Alcohol intake: current Drinks per week: 2 Substance use: never Substance use type: does not use Lack of Transportation: No Lack of Food: Never True Current Housing: I Have Housing Concerned About Future Housing: No Difficulty Paying Gas/Electric Bills: No Difficulty Paying for Meds: No Currently Unemployed: No Education: Bachelor's Degree Difficulty w/ Childcare or Family Care: No Living arrangements: with family Additional living arrangements comments: lost spouse in 2021 Occupation/Education: occupation 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 Gender identity (if verbalized by the patient): Female Sexual Orientation (if Verbalized by the Patient): Straight or Heterosexual Spiritual care concerns: No Meds Home Medications and Allergies Home Medications Medication Instructions Recorded Confirmed Type letrozole 2.5 mg tablet 2.5 mg PO DAILY 11/10/19 02/15/24 History vitamin B complex (B 1 tablet PO DAILY 02/06/20 02/15/24 History Complex-Vitamin B12 tablet) calcium carbonate 500 mg-vitamin 3 tablet PO DAILY 08/11/22 02/15/24 History D3 15 mcg (600 unit) tablet (Os-Dylon 500 + D3) levocetirizine 5 mg tablet (Xyzal) 5 mg PO DAILY 10/25/22 02/15/24 History levothyroxine 88 mcg tablet 88 mcg PO DAILY #90 tabs 11/26/22 02/15/24 Rx omeprazole 40 mg capsule,delayed See Rx Instructions .Route 07/20/23 02/15/24 Rx release .COMPLEX #90 caps atorvastatin 10 mg tablet 10 mg PO DAILY #90 tabs 10/01/23 02/15/24 Rx spironolactone 100 mg tablet See Rx Instructions .Route 10/01/23 02/15/24 Rx .COMPLEX #180 tabs buspirone 5 mg tablet 5 mg PO TID #90 tabs 12/06/23 02/15/24 Rx alprazolam 0.5 mg tablet 0.5 mg PO TID PRN anxiety #60 tabs 01/25/24 02/15/24 Rx folic acid 1 mg tablet 1 mg PO DAILY 02/09/24 02/15/24 History Allergies Allergy/AdvReac Type Severity Reaction Status Date / Time Sulfa (Sulfonamide Allergy Interme
[2024-03-01 08:05] VITALS: BP 105/91; PULSE 68; RESP 20; O2SAT 99
[2024-03-01 08:15] VITALS: BP 107/73; PULSE 58; RESP 20; O2SAT 100
[2024-03-01 08:25] VITALS: BP 115/73; PULSE 65; RESP 20; O2SAT 100
== END 2024-03-01 08:31 | disposition home or self-care (01) ==
PROVIDERS: PCP Family Medicine; Visit Provider Internal Medicine Gastroenterology
PROC: 0DJD8ZZ Inspection of Lower Intestinal Tract, Via Natural or Artificial Opening Endoscopic (ICD-10-PCS; CPT 45378; principal; 2024-03-01 08:00)
DX: K57.30 Diverticulosis of large intestine without perforation or abscess without bleeding (principal); K64.8 Other hemorrhoids; Z86.010 Personal history of colon polyps; F41.8 Other specified anxiety disorders; I10 Essential (primary) hypertension; E78.5 Hyperlipidemia, unspecified; Z85.3 Personal history of malignant neoplasm of breast; Z92.21 Personal history of antineoplastic chemotherapy; Z92.3 Personal history of irradiation; Z98.1 Arthrodesis status; E66.9 Obesity, unspecified; Z68.30 Body mass index [BMI] 30.0-30.9, adult
CPT/HCPCS: 45378; J2704; J7120

== ENCOUNTER 2024-03-24 11:30 | Outpatient (CLI) | payer BC, SELFPAY ==
--- NOTE | ~2024-03-24 | XR_ITS ---
XR hand RT min 3V Ordering provider: PATTI Wolf History: . S69.91XA - Unspecified injury of right wrist, hand and fi... . Comparison: None. FINDINGS: BONES: No acute fracture or dislocation. JOINT SPACES: Normal. SOFT TISSUES: Normal. IMPRESSION: No acute osseous abnormality right hand. Reviewed, dictated and finalized at location A.
== END 2024-03-24 11:31 ==
PROVIDERS: PCP Family Medicine; Visit Provider Nurse Practitioner Family
DX: S69.91XA Unspecified injury of right wrist, hand and finger(s), initial encounter (principal); X58.XXXA Exposure to other specified factors, initial encounter
CPT/HCPCS: 73130

== ENCOUNTER 2025-01-27 13:20 | Emergency (ER) | payer BC, SELFPAY ==
[2025-01-27 13:42] VITALS: BP 153/91; PULSE 78; RESP 16; TEMP 36.6; O2SAT 100
--- NOTE | 2025-01-27 14:13 | ED.WOUNDLAC ---
HPI - Wound/Laceration General Chief Complaint: Wound/Laceration Stated Complaint: FINGER LACERATION Time Seen by Provider: 01/27/25 14:05 Source: patient and RN notes reviewed Mode of arrival: ambulatory Limitations: no limitations History of Present Illness HPI narrative: Patient presents today with a laceration to the right 3rd finger that was sustained approximately 1.5 hours prior to arrival. Patient was cutting meat at home when the knife slipped into her finger. Denies numbness or tingling. No nklm-ywg-ftaogor treatment prior to arrival aside from cleansing. Related Data Home Medications ?Medication ?Instructions ?Recorded ?Confirmed ?Last Taken ?Type vitamin B complex (B 1 tablet PO DAILY 02/06/20 08/22/24 07/21/20 History Complex-Vitamin B12 tablet) calcium 500 mg (as 3 tablet PO DAILY 08/11/22 08/22/24 Unknown History carbonate)-vitamin D3 15 mcg (600 unit) tablet (Os-Dylon 500 + D3) levocetirizine 5 mg tablet (Xyzal) 5 mg PO DAILY 10/25/22 08/22/24 Unknown History folic acid 1 mg tablet 1 mg PO DAILY 02/09/24 08/22/24 Unknown History hqlgbcet-bhd-iycfm ac 400 tablet PO 08/22/24 08/22/24 Unknown History mcg-calcium carb 500 mg-vit K1 20 mcg tablet Allergies Allergy/AdvReac Type Severity Reaction Status Date / Time Sulfa (Sulfonamide Allergy Intermediate face Verified 08/22/24 09:54 Antibiotics) swelled up--hives--throat swelled inside metronidazole Allergy Unknown Rash Verified 08/22/24 09:54 levofloxacin (From Levaquin) AdvReac Severe tendinopathy, Verified 08/22/24 09:54 joint pain and swelling sertraline AdvReac Severe Diarrhea Verified 08/22/24 09:54 omalizumab (From Xolair) AdvReac Intermediate high blood Verified 08/22/24 09:54 pressure doxycycline AdvReac Mild esophageal Verified 08/22/24 09:54 erosion. No allergy. sertraline AdvReac Intermediate Diarrhea Uncoded 08/22/24 09:54 Review of Systems Review of Systems: CONSTITUTIONAL: Denies body aches, fever, chills, or sweats. EYES: Denies visual changes, redness, or discharge. ENT: Denies rhinorrhea, congestion, sore throat, or otalgia. CARDIOVASCULAR: Denies chest pain, palpitations, or edema. RESPIRATORY: Denies cough or dyspnea. GASTROINTESTINAL: Denies abdominal pain, nausea, vomiting, or diarrhea. GENITOURINARY: Denies dysuria or hematuria. SKIN: + finger laceration MUSCULOSKELETAL: Denies back pain, joint pain, or myalgia. NEUROLOGIC: Denies headache, numbness, tingling, or weakness. PSYCH: Denies depression or anxiety. [facility] Past Medical History Medical History Hyperlipidemia Anxiety and depression lost spouse 2021 Urticaria Arthritis hip & jaw Hypertension Breast cancer (~2013) radiation & chemotherapy Serous otitis media of left ear with rupture of tympanic membrane Abdominal bloating Squamous cell skin cancer Abdominal pain, LLQ Overweight (BMI 25.0-29.9) Allergic rhinitis Diverticulosis Normal colonoscopy 2019 Malignant neoplasm of unspecified site of right female breast Residual hemorrhoidal skin tags Surgical History Surgical History H/O right breast biopsy (~06/11/23) Benign H/O spinal fusion 2021 L2 - S1 anchored to tailbone History of lumbar surgery (11/14/18) decompression of L% History of lumpectomy of right breast (03/27/14) 3 lymph nodes removed History of endometrial ablation (04/10/08) hscope Novasure endometrial ablation--heavy periods History of cholecystectomy (~1999) History of bilateral salpingo-oophorectomy (04/25/15) elective--hx of breast cancer Family History Family History Father Hypertension Mother Hypertension Other , spouse Suicide Social History Social History Smoking status: Never smoker Second hand tobacco smoke exposure: No Alcohol intake: current Drinks per week: 2 Substance use: never Substance use type: does not use Do You Feel Safe in your Home?: Yes Lack of Transportation: No Lack of Food: Never True Current Housing: Decline to Answer Concerned About Future Housing: Decline to Answer Difficulty Paying Gas/Electric Bills: Decline to Answer Difficulty Paying for Meds: Decline to Answer Currently Unemployed: Decline to Answer Education: Decline to Answer Difficulty w/ Childcare or Family Care: Decline to Answer Living arrangements: with family Additional living arrangements comments: lost spouse in 2021 Occupation/Education: retired 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 Please see nursing chart for further information. There is no relevant family history pertinent to the presenting complaint Exam Narrative: GENERAL: Well-appearing, well-nourished, and in no acute distress. HEAD: Normocephalic, atraumatic. EYES: EOMI. No redness or drainage. Conjunctivae normal. ENT: Mucous membranes pink and moist. NECK: Normal AROM. CHEST: No respiratory distress. EXTREMITIES: Right 3rd finger: 1 cm partial thickness flap laceration to the dorsum of the middle phalanx. No active bleeding. Distal sensation intact. Capillary refill normal. Full range of motion. SKIN: Warm, dry, no rash. Capillary refill normal. Normal skin turgor. NEURO: No focal deficits. Alert and oriented x3. Gait steady. PSYCH: Normal affect. No signs of depression or anxiety. Course Course Level of Care: Express Care Visit Vital Signs Vital signs: Vital Signs Temperature 97.9 F 01/27/25 13:42 Pulse Rate 78 01/27/25 13:42 Respiratory Rate 16 01/27/25 13:42 Blood Pressure 153/91 H 01/27/25 13:42 Pulse Oximetry 100 01/27/25 13:42 Temperature 97.9 F 01/27/25 13:42 Pulse Rate 78 01/27/25 13:42 Respiratory Rate 16 01/27/25 13:42 Blood Pressure 153/91 H 01/27/25 13:42 Pulse Oximetry 100 01/27/25 13:42 Reviewed Procedures Laceration Laceration 1: Date: 01/27/25 Time: 14:27 Site: hand Side (If applicable): right Size (cm): 1 Description: flap Depth: simple, single layer Local Anesthetic: none Pre-repair: wound explored and irrigated ====== Skin Level ====== Skin layer closed with: dermabond and steri strips ====== Subcutaneous Layer ====== ====== Muscle Layer ====== ====== Tendon Layer ====== Dressing: splint MDM - Wound/Laceration MDM Narrative Medical decision making narrative: Laceration repaired with Steri-Strips and glue. Splint also applied for immobilization for few days to prevent glue removed. Augmentin prescriptions sent to be started with any signs of infection as patient has history of lymphedema related to breast cancer and history of cellulitis in the past. Anticipatory guidance given. Differential Diagnosis Differential diagnosis: Likely laceration and avulsion of skin Critical Care Time Critical Care Time Critical Care Time: No Discharge Plan Discharge Clinical Impression: Finger laceration Qualifiers: Encounter type: initial encounter Finger: middle finger Damage to nail status: without damage Foreign body presence: without foreign body Laterality: right Qualified Code(s): S61.212A - Laceration without foreign body of right middle finger without damage to nail, initial encounter Patient Disposition: Home Condition: Stable Instructions: Skin Adhesive Care (ED), Skin Adhesive Strips (ED) Additional Instructions: Your wound has been cleaned and closed with glue and Steri-Strips. You may wash your hands normally the do not submerge your hand in standing water such as pools, hot tubs, sinks of water. The glue will fall off on its own in 5-7 days. Keep covered until scabbed over. Wear the splint to help remind yourself not to bend the finger. Monitor for any signs of infection such as redness, swelling, increased pain or drainage. If you notice any early signs, start the Augmentin and take as directed. Your tetanus shot has been updated. Your blood pressure was elevated above 120/80 today at Urgent Care. This puts you above the threshold for follow up. Please schedule a followup visit with your personal physician as soon as possible, for further evaluation and treatment. Even blood pressure exceeding 120/80 may indicate pre-hypertension. Patient Language: Ecuadorean Prescriptions: New amoxicillin-pot clavulanate 875-125 mg tablet 1 tablet PO Q12H 7 Days Qty: 14 0RF No Action levocetirizine [Xyzal] 5 mg Tablet 5 mg PO DAILY vitamin B complex [B Complex-Vitamin B12] Tablet 1 tablet PO DAILY nd-bfg-nwkhe-calcium carb-K1 400 mcg-500 mg calcium-20 mcg tablet PO calcium carbonate-vitamin D3 [Os-Dylon 500 + D3] 500 mg-15 mcg (600 unit) tablet 3 tablet PO DAILY folic acid 1 mg tablet 1 mg PO DAILY alprazolam 0.5 mg tablet 0.5 mg PO TID PRN (Reason: anxiety) Qty: 60 5RF atorvastatin 10 mg tablet 10 mg PO DAILY Qty: 90 3RF buspirone 5 mg tablet 5 mg PO TID Qty: 270 3RF levothyroxine 88 mcg tablet 88 mcg PO DAILY Qty: 90 3RF omeprazole 40 mg capsule,delayed release(DR/EC) See Rx Instructions .ROUTE .COMPLEX Qty: 90 3RF Dose Instruction: TAKE ONE CAPSULE BY MOUTH DAILY Rx Instructions: TAKE ONE CAPSULE BY MOUTH DAILY spironolactone 100 mg tablet See Rx Instructions .ROUTE .COMPLEX Qty: 180 3RF Dose Instruction: TAKE 1 TABLET BY MOUTH TWICE DAILY Rx Instructions: TAKE 1 TABLET BY MOUTH TWICE DAILY Follow-up/Referrals: Anna Dean MD [Primary Care Provider] - Time of Disposition: 14:27
[2025-01-27] MEDS: TETANUS,DIPHTHERIA,AC PERTUSSIS ADULT (0.5 ML) BOOSTRIX IM (14:20)
== END 2025-01-27 14:39 | disposition home or self-care (01) ==
PROVIDERS: Emergency Provider Nurse Practitioner; PCP Family Medicine
DX: S61.212A Laceration without foreign body of right middle finger without damage to nail, initial encounter (principal); W26.0XXA Contact with knife, initial encounter; Y93.G9 Activity, other involving cooking and grilling; Z23 Encounter for immunization; I10 Essential (primary) hypertension; E78.5 Hyperlipidemia, unspecified; M19.09 Primary osteoarthritis, other specified site; F41.9 Anxiety disorder, unspecified; Z85.3 Personal history of malignant neoplasm of breast; Z92.3 Personal history of irradiation; Z92.21 Personal history of antineoplastic chemotherapy; Z85.828 Personal history of other malignant neoplasm of skin
CPT/HCPCS: 12001; 90471; 90715; 99212; G0463

== ENCOUNTER 2025-02-13 09:04 | Outpatient (CLI) | payer BC, SELFPAY ==
--- NOTE | ~2025-02-13 | CT_ITS ---
CT abdomen pelvis wo con Ordering provider: Damián Hassan APRN History: 54 years Female with . Left lower quadrant pain x 1 year . Comparison: October 31, 2020 Technique: CT abdomen and pelvis without contrast IV and without oral contrast. Automated exposure co ntrol and iterative reconstruction technique were employed. The dose-length product was 941.26 mGy-cm . Findings: VISUALIZED LOWER CHEST: Normal. UPPER ABDOMINAL ORGANS: Liver: Normal. Gallbladder: Status post cholecystectomy. Spleen: Normal. Stomach/duodenum: Normal. Pancreas: Normal. Adrenals: Normal. Kidneys: Normal. PELVIC ORGANS: The bladder is normal. BOWEL AND MESENTERY: Colon: Fat stranding with thickening of the wall of the colon at the junction of the descending colon with the sigmoid colon suggestive of diverticulitis. No sizable collection or free air is seen. Soft tissue density is seen adjacent to the colon which may be edema or minute collection is not excluded . The appendix is not demonstrated. Small Bowel: Normal. No obstruction. Peritoneum/mesentery: No free air or free fluid. No mesenteric lymphadenopathy. RETROPERITONEUM: Normal aorta. No retroperitoneal lymphadenopathy. MUSCULOSKELETAL: Superficial soft tissues: The superficial soft tissues are normal. Bones: Age appropriate degenerative changes of the spine. Postoperative changes in the lower lumbar a laverne. IMPRESSION: 1. Diverticulitis at the junction of the descending colon with the sigmoid colon. No sizable fluid c ollection is noted. Follow-up advised. 2. Other appearances are unremarkable. Reviewed, dictated and finalized at location A. IMPRESSION: 1. Diverticulitis at the junction of the descending colon with the sigmoid col on. No sizable fluid collection is noted. Follow-up advised. 2. Other appearances are unremarkable.
== END 2025-02-13 09:05 | disposition home or self-care (01) ==
LOC: GOSHIMG 09:04
PROVIDERS: PCP Family Medicine; Visit Provider Student in an Organized Health Care Education/Training Program
DX: R10.32 Left lower quadrant pain (principal); K57.32 Diverticulitis of large intestine without perforation or abscess without bleeding
CPT/HCPCS: 74176

== ENCOUNTER 2025-03-06 15:49 | Outpatient (CLI) | payer BC, SELFPAY ==
--- NOTE | ~2025-03-06 | CT_ITS ---
CLINICAL INDICATION: Lower abdominal pain COMPARISON: 02/13/2025, which demonstrated diverticulitis within the left lower quadrant without a drai nable fluid collection. TECHNIQUE: Multiple contiguous axial images of the abdomen and pelvis were performed without the admi nistration of intravenous contrast The dose-length product (DLP) was 963.13 mGy-cm. Automated exposure control and iterative reconstruction technique were employed. FINDINGS/OBSERVATIONS: Visualized lower thorax: The bilateral lung bases are clear. The heart is of normal size, without pericardial effusion. Small hiatal hernia is present. Liver: The liver demonstrates homogeneous attenuation and is not enlarged. Gallbladder and biliary system: The gallbladder is surgically absent. Pancreas: Limited evaluation of the pancreas secondary to the lack of intravenous contrast. Spleen: The spleen demonstrates homogeneous attenuation and is not enlarged. Kidneys: The bilateral kidneys are unremarkable, without hydronephrosis or renal calculi. Adrenal glands: Unremarkable. Gastrointestinal tract: Redemonstration of acute/subacute diverticulitis of the sigmoid colon with contained perforation. No drainable fluid collection is identified. No gross free air is noted. Appendix: The appendix is of normal caliber (axial series, images 132 through 138). Vasculature: Unremarkable. Lymph nodes: Limited evaluation without intravenous contrast. Pelvic structures: The bladder is only minimally distended, and otherwise unremarkable. The uterus is anteverted and anteflexed, and otherwise unremarkable. Body wall and musculoskeletal: Small fat-containing umbilical hernia. Posterior fixation of the lumbosacral spine. IMPRESSION: Redemonstration of acute/subacute diverticulitis of the proximal sigmoid colon with multiple small co ntained perforations. No gross free air is present. No drainable fluid collection is identified. Reviewed, dictated and finalized at location A. IMPRESSION: Redemonstration of acute/subacute diverticulitis of the proximal sigmoid colon with multiple small contained perforations. No gross free air is present. No drainable fluid collection is identified.
== END 2025-03-06 15:50 | disposition home or self-care (01) ==
LOC: GOSHIMG 15:49
PROVIDERS: PCP Family Medicine; Visit Provider Student in an Organized Health Care Education/Training Program
DX: K57.32 Diverticulitis of large intestine without perforation or abscess without bleeding (principal)
CPT/HCPCS: 74176

== ENCOUNTER 2025-03-06 18:07 | Inpatient (IN) | payer BC, SELFPAY ==
--- OUTSIDE RECORDS SUMMARY | 2025-03-06 18:13 | XMS_ITS | Clinical Summary ---
Author Organization [facility] [employer] Address [address] [place] [address] Care Team Providers Care Gripper Installer Name Role Phone Fred Dean MD Primary Care Provider [phone]- [phone] Source Comments [facility] [employer],non-owned Affiliates and Associated Physician Practices is amultiple site organization consisting of ambulatory clinics and hospital sitesin [place], [place], [place] and [place]. This disclosure is being madepursuant to the Care Everywhere program and may not contain all information available regarding this patient. Last updated 18.[facility] [employer] Allergies Active Allergy Reactions Criticality Noted Date Comments Kdc:Ethylparaben+Butyl Parahydroxybenzoate+Ethanol+Methylpa raben+... Skin Reactions Medium 07/31/2016 blisters Sulfa Drugs Swelling,Rash Medium 07/31/2016 Medications * Be aware that medications may not be up to date on this document. Alwaysverify current medications with the patient. buPROPion XL 24hr (WELLBUTRIN-XL) 150 MG tablet Take 150 mg by mouth Every Morning. 30 tablet 5 8 Active Additional Information Patient not taking.Reported on 02/20/2019 Testosterone 1 tube 4 8 Active Additional Information Patient not taking.Reported on 02/20/2019 omeprazole (PRILOSEC) 40 MG capsule 11 6 Active calcium carbonate (CALTRATE) 600 MG tablet Take by mouth. 6 Active letrozole (FEMARA) 2.5 MG tablet 5 6 Active naproxen (NAPROSYN) 250 MG tablet Take by mouth. 6 Active spironolactone (ALDACTONE) 100 MG tablet 6 6 Active melatonin 5 MG tablet Take by mouth. 6 Active levothyroxine (SYNTHROID) 50 MCG tablet 8 Active Flibanserin (ADDYI) 100 MG TABS Take 1 tablet by mouth at bedtime 30 tablet 3 8 Active Additional Information Patient not taking.Reported on 02/20/2019 Flibanserin (ADDYI) 100 MG TABS Take 1 tablet by mouth at bedtime 30 tablet 1 9 Active INTRAROSA 6.5 MG INST INSERT ONE SUPPOSITORY INTO THE VAGINA AT BEDTIME 30 Each 11 9 Active Active Problems Problem Noted Date Diagnosed Date Osteoarthritis 11/04/2016 Malignant neoplasm of female breast 11/04/2016 Essential (primary) hypertension 11/04/2016 Heartburn 11/04/2016 Family History Medical History Relation Name Comments Heart Disease Father Hypertension Father Relation Name Status Comments Father Social History Tobacco Use Types Packs/Day Years Used Date Smoking Tobacco: Never Smokeless Tobacco: Never Alcohol Use Standard Drinks/Week Comments Yes 0 (1 standard drink = 0.6 oz pur e alcohol) Comments Unknown Sex and Gender Information Value Date Recorded Sex Assigned at Not on file Legal Sex Female 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 Gender Identity Not on file Sexual Orientation Not on file Last Filed Vital Signs Vital Sign Reading Time Taken Comments Blood Pressure 120/80 02/20/2019 1:55 PM CDT Pulse - - Temperature - - Respiratory Rate - - Oxygen Saturation - - Inhaled Oxygen Concentration - - Weight 79.4 kg (175 lb) 02/20/2019 1:55 PM CDT Height 170.2 cm (5' 7) 02/20/2019 1:55 PM CDT Body Mass Index 27.41 02/20/2019 1:55 PM CDT Plan of Treatment Health Maintenance Due Date Last Done Comments COLOGUARD (AGES 45-75) - COL ON CA SCREENING 1969 COLON MONITORING 1969 COLONOSCOPY - COLON CA SCREENING 1969 CT COLONOGRAPHY - COLON CA SCREENING 1969 Colorectal Cancer Screening 1969 FIT - COLON CA SCREENING 1969 FLEX SIG - COLON CA SCREENING 1969 LIPID TESTING 1969 MAMMOGRAM 1969 HIV SCREENING 1984 HEPATITIS C SCREENING 03/02/1987 DTAP/TDAP/TD VACCINES (1 - Tdap) 1988 HEPATITIS B VACCINE (1 of 3 - 19+ 3-dose series) 1988 SCREENING FOR DIABETES 05/09/2018 PNEUMOCOCCAL VACCINE 50+ (1 of 1 - PCV) 2019 ZOSTER VACCINE (1 of 2) 2019 COVID-19 VACCINE (1 - 2023-2 5 season) 2024 DEPRESSION SCREENING 10/11/2024 INFLUENZA VACCINE (Season Ended) 2025 HIB VACCINE Aged Out No longer eligi ble based on patient's age to complete this topic HPV VACCINE Aged Out No longer eligi ble based on patient's age to complete this topic MENINGOCOCCAL (Group B) VACC INE SHARED DECISION-MAKING Aged Out No longer eligibl e based on patient's age to complete this topic MENINGOCOCCAL GROUPS A/C/Y/W VACCINE Aged Out No longer eligible b ased on patient's age to complete this topic Insurance [facility] Care Teams Gripper Installer Relationship Specialty Start Date End Date Fred Dean MD [address] [place] [address] PCP - General 10/09/08
--- OUTSIDE RECORDS SUMMARY | 2025-03-06 18:13 | XMS_ITS | Encounter Summary ---
Author Organization [facility] Address [address] [place] [address] Care Team Providers Care Wringer Machine Operator Name Role Phone Fred Dean MD Primary Care Provider [phone]- [phone] Reason for Visit * Reason Onset Date Comments MEDICATION REFILL 05/18/2018 Med Question 05/18/2018 Encounter Details Date Type Department Care Team (Late st Contact Info) Description 05/18/2018 Telephone [facility] [address] [place] [address] Latasha Whitehead MD [address] [id number] MEDICATION REFILL; Med Question Social History Tobacco Use Types Packs/Day Years Used Date Smoking Tobacco: Never Smokeless Tobacco: Never Alcohol Use Standard Drinks/Week Comments Yes 0 (1 standard drink = 0.6 oz pur e alcohol) Comments Unknown Sex and Gender Information Value Date Recorded Sex Assigned at Not on file Legal Sex Female 5:32 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 Can you let Hafsa know? * Telephone Encounter - Olga Deluca RN - 05/18/2018 10:09 AM CDT Telephone call to [facility]. Informed pt is menopausal. [facility] states [facility] does not dispenseAddyi to post menopausal women as it is indicated for pre menopausal women. Request office send newprescription to local pharmacy of pt's choice. Provider to be notified. * Telephone Encounter - Anna Rodriguez - 05/18/2018 9:43 AM CDT REFILL LINE: Jennifer with [facility] called in stating she received the script yesterday but she still needs to know is patient is pre or post menopausal. [facility] callback# [phone] documented in this encounter Plan of Treatment Not on file documented as of this encounter Visit Diagnoses Not on filedocumented in this encounter Care Teams Wringer Machine Operator Relationship Specialty Start Date End Date Fred Dean MD [address] [place] [id number] PCP - General 10/09/08 documented as of this encounter
[2025-03-06 18:15] VITALS: BP 168/87; PULSE 83; RESP 16; TEMP 36.8; O2SAT 100
--- NOTE | 2025-03-06 18:29 | ED_ITS ---
HPI - Abdominal Pain General Chief Complaint: Abdominal Pain <Georgette Zelaya PA-C - Last Filed: 03/06/25 18:44> Stated Complaint: Abd pain-sent for poss bowel perferations <Georgette Zelaya PA-C - Last Filed: 03/06/25 18:44> Time Seen by Provider: 03/06/25 18:15 <CORDELL Damon Last Filed: 03/06/25 18:44> Focused HPI: Patient is a 55 y/o female who presents to the ED with c/o LLQ abd pain/abnormal outpatient CT. Patient reports at the beginning of February, she was diagnosed with diverticulitis. Placed on a 10 day course of Augmentin. Finished this. States the pain in her L lower abdomen never fully resolved. She had a f/u with her PCP today and had a repeat CT scan performed which showed persistent diverticulitis with multiple small contained perforations. She was then referred to the ED for further evaluation. Patient reports intermittent nausea/vomiting. Denies fevers. She does admit to feeling very anxious currently. GENERAL: Mildly anxious-appearing, obese with BMI of 31.7, and in no acute distress. HEAD: Normocephalic, atraumatic. CHEST: Clear to auscultation. ?No respiratory distress. HEART: Regular rate and rhythm.? ABD: TTP in LLQ, no rebound. Normoactive BS NEURO: ?Alert and oriented x3. Patient screened in triage and initial orders placed.? ?Additional care and disposition to be based upon?diagnostic testing and treatment. <Georgette Zelaya PA-C - Last Filed: 03/06/25 18:44> Source: patient <Georgette Zelaya PA-C - Last Filed: 03/06/25 18:44> Mode of arrival: ambulatory <Georgette Zelaya PA-C - Last Filed: 03/06/25 18:44> Limitations: no limitations <CORDELL Damon Last Filed: 03/06/25 18:44> History of Present Illness HPI narrative: Agree with the HPI above <Albert Peters MD - Last Filed: 03/06/25 21:14> Related Data Home Medications: Home Medications ?Medication ?Instructions ?Recorded ?Confirmed ?Last Taken ?Type vitamin B complex (B 1 tablet PO DAILY 02/06/20 03/06/25 07/21/20 History Complex-Vitamin B12 tablet) calcium 500 mg (as 3 tablet PO DAILY 08/11/22 03/06/25 Unknown History carbonate)-vitamin D3 15 mcg (600 unit) tablet (Os-Dylon 500 + D3) levocetirizine 5 mg tablet (Xyzal) 5 mg PO DAILY 10/25/22 03/06/25 Unknown History folic acid 1 mg tablet 1 mg PO DAILY 02/09/24 03/06/25 Unknown History ejdfxsna-brl-virtp ac 400 tablet PO 08/22/24 03/06/25 Unknown History mcg-calcium carb 500 mg-vit K1 20 mcg tablet magnesium 250 mg tablet 250 mg PO DAILY 03/06/25 03/06/25 Unknown History <Georgette Zelaya PA-C - Last Filed: 03/06/25 18:44> Allergies/Adverse Reactions: Allergies Allergy/AdvReac Type Severity Reaction Status Date / Time Sulfa (Sulfonamide Allergy Intermediate face Verified 03/06/25 18:37 Antibiotics) swelled up--hives--throat swelled inside metronidazole Allergy Unknown Rash Verified 03/06/25 18:37 levofloxacin (From Levaquin) AdvReac Severe tendinopathy, Verified 03/06/25 18:37 joint pain and swelling sertraline AdvReac Severe Diarrhea Verified 03/06/25 18:37 omalizumab (From Xolair) AdvReac Intermediate high blood Verified 03/06/25 18:37 pressure doxycycline AdvReac Mild esophageal Verified 03/06/25 18:37 erosion. No allergy. sertraline AdvReac Intermediate Diarrhea Uncoded 03/06/25 18:37 <Georgette Zelaya PA-C - Last Filed: 03/06/25 18:44> Review of Systems 2 Review of Systems: As reviewed above in HPI <Albert Peters MD - Last Filed: 03/06/25 21:14> PMFSH Past Medical History Medical History: Medical History Abdominal pain, LLQ Hyperlipidemia Anxiety and depression lost spouse 2021 Urticaria Arthritis hip & jaw Hypertension Breast cancer (~2013) radiation & chemotherapy Serous otitis media of left ear with rupture of tympanic membrane Abdominal bloating Squamous cell skin cancer Overweight (BMI 25.0-29.9) Allergic rhinitis Diverticulosis Normal colonoscopy 2019 Malignant neoplasm of unspecified site of right female breast Residual hemorrhoidal skin tags <Georgette Zelaya PA-C - Last Filed: 03/06/25 18:44> Surgical History Surgical History: Surgical History H/O right breast biopsy (~06/11/23) Benign H/O spinal fusion 2021 L2 - S1 anchored to tailbone History of lumbar surgery (11/14/18) decompression of L% History of lumpectomy of right breast (03/27/14) 3 lymph nodes removed History of endometrial ablation (04/10/08) hscope Novasure endometrial ablation--heavy periods History of cholecystectomy (~1999) History of bilateral salpingo-oophorectomy (04/25/15) elective--hx of breast cancer <Georgette Zelaya PA-C - Last Filed: 03/06/25 18:44> Family History Family History: Family History Father Hypertension Mother Hypertension Other , spouse Suicide <Georgette Zelaya PA-C - Last Filed: 03/06/25 18:44> Social History Social History: Social History Smoking status: Never smoker Second hand tobacco smoke exposure: No Alcohol intake: current Drinks per week: 2 Substance use: never Substance use type: does not use Do You Feel Safe in your Home?: Yes Lack of Transportation: No Lack of Food: Never True Current Housing: Decline to Answer Concerned About Future Housing: Decline to Answer Difficulty Paying Gas/Electric Bills: Decline to Answer Difficulty Paying for Meds: Decline to Answer Currently Unemployed: Decline to Answer Education: Decline to Answer Difficulty w/ Childcare or Family Care: Decline to Answer Living arrangements: with family Additional living arrangements comments: lost spouse in 2021 Occupation/Education: retired 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 Mucous membranes moist. NECK: Supple. CHEST: [Clear to auscultation. No respiratory distress.] HEART: [Regular rate and rhythm]. No murmur heard. [Normal peripheral pulses.] ABDOMEN: [Soft, nondistended], tender palpation left lower quadrant, no signs of peritonitis, [No rigidity or guarding] EXTREMITIES: Normal range of motion. [No edema.] SKIN: Warm, dry, no rash. NEURO: [No focal deficits]. Alert and oriented [x3.] PSYCH: [Normal mood and affect.] <Albert Peters MD - Last Filed: 03/06/25 21:14> Course Vital Signs Vital signs: Vital Signs Temperature 36.8 C 03/06/25 18:15 Pulse Rate 83 03/06/25 18:15 Respiratory Rate 16 03/06/25 18:15 Blood Pressure 168/87 H 03/06/25 18:15 Pulse Oximetry 100 03/06/25 18:15 Oxygen Delivery Room Air 03/06/25 18:15 Temperature 36.8 C 03/06/25 18:15 Pulse Rate 65 03/06/25 20:44 Respiratory Rate 20 03/06/25 20:44 Blood Pressure 169/93 H 03/06/25 20:44 Pulse Oximetry 100 03/06/25 20:44 Oxygen Delivery Room Air 03/06/25 18:32 <CORDELL Damon Last Filed: 03/06/25 18:44> Vital Signs Temperature 36.8 C 03/06/25 18:15 Pulse Rate 83 03/06/25 18:15 Respiratory Rate 16 03/06/25 18:15 Blood Pressure 168/87 H 03/06/25 18:15 Pulse Oximetry 100 03/06/25 18:15 Oxygen Delivery Room Air 03/06/25 18:15 Temperature 36.8 C 03/06/25 18:15 Pulse Rate 65 03/06/25 20:44 Respiratory Rate 20 03/06/25 20:44 Blood Pressure 169/93 H 03/06/25 20:44 Pulse Oximetry 100 03/06/25 20:44 Oxygen Delivery Room Air 03/06/25 18:32 <Albert Peters MD - Last Filed: 03/06/25 21:14> MDM - Abdominal Pain MDM Narrative Medical decision making narrative: 55-year-old female with history of hypertension, hyperlipidemia, breast cancer status post mastectomy chemotherapy. She presents to the emergency depart with left lower quadrant pain ongoing for several weeks and was recently diagnosed with diverticulitis incomplete course of Augmentin 10 days. She states she has been having worsening symptoms and went to her primary doctor today quite a stat CT ordered that showed perforated diverticulitis and she was referred to the ER. Patient is uncomfortable and pain as well as anxious in appearance but she has normal vital signs. No tachycardia, fever, tachypnea, significant blood pressure elevations. She has a tender left lower quadrant abdomen. She was given morphine Zofran as well as a fluid bolus. Started on Zosyn given her multiple antibiotic allergies. Laboratory studies were obtained including blood cultures, CBC, CMP. Outside hospital imaging studies were reviewed that do show perforated diverticulitis although contained with no free air. Multiple segment in the sigmoid colon. General surgery consulted and awaiting discussion with them over the phone for recommendations and plan of care most likely admission for interventions. Workup shows no leukocytosis or anemia. Normal kidney and hepatic function panel. Re-evaluation shows improvement in pain control and symptom control. Patient started on maintenance IV fluids. Spoke to Dr. Crystal the general surgeon who recommended making the patient NPO at midnight with continued antibiotics including Zosyn and he will evaluate the patient on inpatient basis. Spoke to the hospitalist Dr. Torre who accepted the patient to an observation admission at this time. Patient re-evaluated and doing well. She was informed the diagnosis and plan of care at this time including IV antibiotics and surgery evaluation. Patient's questions were answered and she was admitted at this time. <Albert Peters MD - Last Filed: 03/06/25 21:14> Medical Records Attestation: I reviewed the patient's medical records. <Albert Peters MD - Last Filed: 03/06/25 21:14> Lab Data Attestation: I reviewed the patient's lab results. <Albert Peters MD - Last Filed: 03/06/25 21:14> Result diagrams: 03/06/25 18:48 03/06/25 18:48 <Georgette Zelaya PA-C - Last Filed: 03/06/25 18:44> Labs: Lab Results 03/06/25 Range/Units 18:48 WBC 9.4 (4.5-10.0) K/mm3 RBC 4.50 (4.2-5.4) M/mm3 Hgb 13.0 (12.0-15.0) g/dL Hct 39.6 (37.0-47.0) % MCV 88.0 (80-100) fl MCH 28.9 (26-34) pg MCHC 32.8 (32-36) g/dl RDW 14.2 (11.5-14.5) % Plt Count 402 H (150-375) k/mm3 MPV 9.7 (7.4-10.4) fl Immature Gran % (Auto) 0.5 (0-0.5) % Neut % (Auto) 59.1 (45.5-73.1) % Lymph % (Auto) 31.4 (18.3-44.2) % Millard % (Auto) 6.9 (2.6-8.5) % Eos % (Auto) 1.3 (0-4.4) % Baso % (Auto) 0.8 (0.2-1.2) % Lymph # (Auto) 2.96 (0.9-3.2) K/mm3 Millard # (Auto) 0.7 H (0.1-0.6) K/mm3 Eos # (Auto) 0.1 (0-0.3) K/mm3 Baso # (Auto) 0.1 (0.0-0.1) K/mm3 Abs Immat Gran (auto) 0.05 H (0.00-0.031) K/mm3 Absolute Neuts (auto) 5.6 (1.3-6.7) K/mm3 Absolute Nucleated RBC 0.000 (0.0-0.012) K/mm3 Nucleated RBC % 0.0 (0.0-0.2) % Sodium 140 (137-145) mmol/L Potassium 3.4 (3.4-5.0) mmol/L Chloride 103 (98-107) mmol/L Carbon Dioxide 25 (22-30) mmol/L Anion Gap 12 (4-12) mmol/L BUN 14 (7-17) mg/dL Creatinine 0.75 (0.7-1.0) mg/dL Estim Creat Clear Calc 82 ml/min Estimated GFR > 60 (59 - ) Glucose 98 (65-110) mg/dL Lactic Acid 1.2 (0.7-2.0) mmol/L Calcium 9.1 (8.4-10.2) mg/dL Total Bilirubin 0.6 (0.2-1.3) mg/dL AST 32 (14-36) U/L ALT 36 H (6-35) U/L Alkaline Phosphatase 87 (38-126) U/L Total Protein 8.0 (6.3-8.2) g/dL Albumin 4.8 (3.5-5.1) g/dL <Georgette Zelaya PA-C - Last Filed: 03/06/25 18:44> Lab Results 03/06/25 Range/Units 18:48 WBC 9.4 (4.5-10.0) K/mm3 RBC 4.50 (4.2-5.4) M/mm3 Hgb 13.0 (12.0-15.0) g/dL Hct 39.6 (37.0-47.0) % MCV 88.0 (80-100) fl MCH 28.9 (26-34) pg MCHC 32.8 (32-36) g/dl RDW 14.2 (11.5-14.5) % Plt Count 402 H (150-375) k/mm3 MPV 9.7 (7.4-10.4) fl Immature Gran % (Auto) 0.5 (0-0.5) % Neut % (Auto) 59.1 (45.5-73.1) % Lymph % (Auto) 31.4 (18.3-44.2) % Millard % (Auto) 6.9 (2.6-8.5) % Eos % (Auto) 1.3 (0-4.4) % Baso % (Auto) 0.8 (0.2-1.2) % Lymph # (Auto) 2.96 (0.9-3.2) K/mm3 Millard # (Auto) 0.7 H (0.1-0.6) K/mm3 Eos # (Auto) 0.1 (0-0.3) K/mm3 Baso # (Auto) 0.1 (0.0-0.1) K/mm3 Abs Immat Gran (auto) 0.05 H (0.00-0.031) K/mm3 Absolute Neuts (auto) 5.6 (1.3-6.7) K/mm3 Absolute Nucleated RBC 0.000 (0.0-0.012) K/mm3 Nucleated RBC % 0.0 (0.0-0.2) % Sodium 140 (137-145) mmol/L Potassium 3.4 (3.4-5.0) mmol/L Chloride 103 (98-107) mmol/L Carbon Dioxide 25 (22-30) mmol/L Anion Gap 12 (4-12) mmol/L BUN 14 (7-17) mg/dL Creatinine 0.75 (0.7-1.0) mg/dL Estim Creat Clear Calc 82 ml/min Estimated GFR > 60 (59 - ) Glucose 98 (65-110) mg/dL Lactic Acid 1.2 (0.7-2.0) mmol/L Calcium 9.1 (8.4-10.2) mg/dL Total Bilirubin 0.6 (0.2-1.3) mg/dL AST 32 (14-36) U/L ALT 36 H (6-35) U/L Alkaline Phosphatase 87 (38-126) U/L Total Protein 8.0 (6.3-8.2) g/dL Albumin 4.8 (3.5-5.1) g/dL <Albert Peters MD - Last Filed: 03/06/25 21:14> Imaging Data Attestation: I personally reviewed and interpreted this imaging study as follows: < Albert Peters MD - Last Filed: 03/06/25 21:14> Radiologist's impression: Redemonstration of acute/subacute diverticulitis of the proximal sigmoid colon with multiple small contained perforations. No gross free air is present. No drainable fluid collection is identified. <Albert Peters MD - Last Filed: 03/06/25 21:14> Critical Care Time Critical Care Time Critical Care Time: Yes <Albert Peters MD - Last Filed: 03/06/25 21:14> Total Critical Care Time: 35 <Albert Peters MD - Last Filed: 03/06/25 21:14> Discharge Plan Discharge Clinical Impression: Perforation of sigmoid colon due to diverticulitis, Acute diverticulitis, Abdominal pain <Georgette Zelaya PA-C - Last Filed: 03/06/25 18:44> Patient Disposition: Still a Patient <Georgette Zelaya PA-C - Last Filed: 03/06/25 18:44> Condition: Stable <CORDELL Damon Last Filed: 03/06/25 18:44> Instructions: Antibiotic Form <CORDELL Damon Last Filed: 03/06/25 18:44> Patient Language: Bermudian <CORDELL Damon Last Filed: 03/06/25 18:44> Prescriptions: No Action levocetirizine [Xyzal] 5 mg Tablet 5 mg PO DAILY vitamin B complex [B Complex-Vitamin B12] Tablet 1 tablet PO DAILY [id number]-cvrjg-calcium carb-K1 400 mcg-500 mg calcium-20 mcg tablet PO calcium carbonate-vitamin D3 [Os-Dylon 500 + D3] 500 mg-15 mcg (600 unit) tablet 3 tablet PO DAILY folic acid 1 mg tablet 1 mg PO DAILY magnesium 250 mg tablet 250 mg PO DAILY alprazolam 0.5 mg tablet 0.5 mg PO TID PRN (Reason: anxiety) Qty: 60 5RF atorvastatin 10 mg tablet 10 mg PO DAILY Qty: 90 3RF buspirone 5 mg tablet 5 mg PO TID Qty: 270 3RF levothyroxine 88 mcg tablet 88 mcg PO DAILY Qty: 90 3RF omeprazole 40 mg capsule,delayed release(DR/EC) See Rx Instructions .ROUTE .COMPLEX Qty: 90 3RF Dose Instruction: TAKE ONE CAPSULE BY MOUTH DAILY Rx Instructions: TAKE ONE CAPSULE BY MOUTH DAILY <Georgette Zelaya PA-C - Last Filed: 03/06/25 18:44> Follow-up/Referrals: Anna Dean MD [Primary Care Provider] - <Georgette Zelaya PA-C - Last Filed: 03/06/25 18:44> Time of Disposition: 21:14 <Georgette Zelaya PA-C - Last Filed: 03/06/25 18:44> 21:14 <Albert Peters MD - Last Filed: 03/06/25 21:14>
[2025-03-06 18:32] VITALS: BP 144/92; PULSE 68; RESP 20; O2SAT 100
[2025-03-06] MEDS: MORPHINE SULFATE (*CRX) 4 MG/ML INJ IV PUSH (18:45)
[2025-03-06] MEDS: ONDANSETRON INJ 4 MG/2 ML VIAL IV PUSH (18:46)
[2025-03-06] MEDS: PIPERACILLN/TAZ 3.375GM/NS50ML 3.375 GM/50 ML BAG IVPB (18:59)
[2025-03-06 19:02] LABS: Basophils Absolute Auto 0.1 K/mm3 (0.0-0.1); Basophils Percent Auto 0.8 % (0.2-1.2); Eosinophils Absolute Auto 0.1 K/mm3 (0-0.3); Eosinophils Percent Auto 1.3 % (0-4.4); Hematocrit 39.6 % (37.0-47.0); Immature Granulocyte Absolute 0.05 K/mm3 (0.00-0.031); Immature Granulocyte Percent A 0.5 % (0-0.5); Lymphocytes Absolute Auto 2.96 K/mm3 (0.9-3.2); Lymphocytes Percent Auto 31.4 % (18.3-44.2); Mean Corpuscular HGB Conc 32.8 g/dl (32-36); Mean Corpuscular Hemoglobin 28.9 pg (26-34); Mean Platelet Volume 9.7 fl (7.4-10.4); Monocytes Absolute Auto 0.7 K/mm3 (0.1-0.6); Monocytes Percent Auto 6.9 % (2.6-8.5); Neutrophils Absolute Auto 5.6 K/mm3 (1.3-6.7); Neutrophils Percent Auto 59.1 % (45.5-73.1); Platelet Count Result 402 k/mm3 (150-375); Red Cell Distribution Width 14.2 % (11.5-14.5); White Blood Count 9.4 K/mm3 (4.5-10.0)
[2025-03-06 19:14] LABS: Lactic Acid Reflex 1.2 mmol/L (0.7-2.0)
[2025-03-06 19:15] LABS: Alanine Aminotransferase 36 U/L (6-35); Albumin Level 4.8 g/dL (3.5-5.1); Alkaline Phosphatase 87 U/L (38-126); Anion Gap 12 mmol/L (4-12); Aspartate Amino Transferase 32 U/L (14-36); Bilirubin,Total 0.6 mg/dL (0.2-1.3); Blood Urea Nitrogen 14 mg/dL (7-17); Calcium 9.1 mg/dL (8.4-10.2); Carbon Dioxide 25 mmol/L (22-30); Chloride 103 mmol/L (98-107); Estimated CRCL calculation 82 ml/min; Estimated Glomerular Filt Rate > 60; Glucose 98 mg/dL (65-110); Potassium 3.4 mmol/L (3.4-5.0); Sodium 140 mmol/L (137-145)
--- OUTSIDE RECORDS SUMMARY | 2025-03-06 19:47 | XMS_ITS | Continuity of Care Document ---
Author Organization [facility] Address [address] [place] [address] Phone Care Team Providers Care Dog Food Shredder Operator Name Role Phone Rakesh PT,MPT,ATC, Estevan Unavailable Unavai lable Procedures Procedure Date Therapeutic Activities Neuromuscular Re-Ed Therapeutic Exercise Therapeutic Activities Therapeutic Exercise Neuromuscular Re-Ed Therapeutic Activities Neuromuscular Re-Ed Therapeutic Exercise Therapeutic Activities Therapeutic Exercise Manual Therapy Therapeutic Activities Therapeutic Exercise Manual Therapy PT Evaluation Moderate Complexity Therapeutic Activities Therapeutic Exercise Advance Directives Directive Yes / No Effective Date File Name No Information Encounters Encounter Description Practice Location Reason(s) For Visit Diagnoses Date Provider Providers Copied on Encounter [facility], [place], [place], [id number], [place] tel:[phone] [place] No Information [place], [place]. Referring Provider: Noah Campbell, [address] [facility] [place], [place], [address]. tel:[phone] [facility], [place], [place], [id number], tel:[phone] [place] No Information 4 [place]. . Referring Provider: Noah Campbell, [address] [facility] [place], [place], [address]. tel:[phone] [facility], [address] [address], [place], [place], [id number], tel:[phone] [place] No Information 4 [place]. . Referring Provider: Noah Campbell, [address] [facility] [place], [place], [address]. tel:[phone] [facility], [address] [place] [address] [address], [place], [place], [id number], [place] tel:[phone] [place] No Information 4 [place]. . Referring Provider: Noah Campbell, [address] [facility], [place], [address]. tel:[phone] [facility], [address] [place] [address], [place], [place], [id number], [place] tel:[phone] [place] No Information 4 [place]. . Referring Provider: Noah Campbell, [address] [facility], [place], [address]. tel:[phone] [facility], [address] [place] [address], [place], [place], [id number], [place] tel:[phone] [place] No Information 4 [place]. . Referring Provider: Noah Campbell, [address] [facility] [place], [place], [address]. tel:[phone] Family History Family Member Type Diagnosis Age At Onset No Information Payers Payer name Insurance type Covered constitution party ID Authorgeorgiana avalos(s) [facility] [id number] Social History Type Description Quantity Date Captured Comments Sex Female Smoking Status No Information Chief Complaint And Reason For Visit No Information Reason For Referral Reason For Referral No Information History Of Present Illness Encounter Date Complaint History Of Prese nt Illness No Information Functional Status Date Functional Assessmen t No Information Instructions Date Instruction Additional Infor mation No Information Assessments Type Assessment Date No Information Patient Care Teams Name Effective Dates (start - stop) Status Members No Information
--- OUTSIDE RECORDS SUMMARY | 2025-03-06 19:47 | XMS_ITS | Encounter Summary ---
Author Organization [facility] Address [address] [place] [address] Phone Care Team Providers Care Product Support Specialist Name Role Phone Anna Dean MD Primary Care Provider + Italo Tapia MD Unavailable [phone] Encounter Details Date Type Department Care Team (Latest Contact Info) Description 06/26/2020 Orders Only [facility] Scanning, Provider Social History Tobacco Use Types Packs/Day Years Used Date Smoking Tobacco: Never Smokeless Tobacco: Never Alcohol Use Standard Drinks/Week Comments Yes 1 (1 standard drink = 0.6 oz pur e alcohol) socially Comments No Sex and Gender Information Value Date Recorded Sex Assigned at Not on file Legal Sex Female 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 Gender Identity Not on file Sexual Orientation Not on file documented as of this encounter Plan of Treatment Not on file documented as of this encounter Procedures Procedure Name Priority Date/Time Associated Diagnosis Comments SCAN - RADIOLOGY/IMAGING 06/26/2020 documented in this encounter Results * SCAN - RADIOLOGY/IMAGING (06/26/2020) Anatomical Region Laterality Modality Other us Provider Scanning Edited Result - Final documented in this encounter Visit Diagnoses Not on filedocumented in this encounter Additional Health Concerns Infection Onset Date Last Indicated Resolved Time COVID: Suspected 10/17/2020 10/17/2020 10/17/2020 10:28 PM OIL WELL SERVICES FIELD SUPERVISOR Respiratory Infection (CONSTANTINO), contact + droplet Comment:Automatically added due to negative COVID-19 result. 10/17/2020 10/17/2020 10/31/2020 3:0 7 AM OIL WELL SERVICES FIELD SUPERVISOR documented as of this encounter Care Teams Product Support Specialist Relationship Specialty Start Date End Date Anna Dean MD PCP - General 01/27/18 Italo Tapia MD [address] [place] [address] Manager Oncology Obstetrics and Gynecology 11/19/21 documented as of this encounter
--- OUTSIDE RECORDS SUMMARY | 2025-03-06 19:47 | XMS_ITS | Encounter Summary ---
Author Organization [facility] Address [address] [place] [address] Phone Care Team Providers Care Fishing Manager Name Role Phone Anna Dean MD Primary Care Provider + Italo Tapia MD Unavailable [phone] Encounter Details Date Type Department Care Team (Late st Contact Info) Description 02/02/2025 Results Follow-Up [facility] Endocrinology Metabolism and Lipid [address] [facility] Advanced Medicine 13th [place] [address] [place] [address] Sophy Mcmillan MD [address] [place] [address] Dexa Axial Skeleton Bone Density 1 or 2 Site Social History Tobacco Use Types Packs/Day Years Used Date Smoking Tobacco: Never Passive Smoke Exposure: Never Smokeless Tobacco: Never Alcohol Use Standard Drinks/Week Comments Yes 1 (1 standard drink = 0.6 oz pur e alcohol) socially AUDIT-C Answer Date Recorded Q1: How often do you have a drink containing alc ohol? Monthly or less 12/08/2022 Average Number of Drinks Not on file 023 Frequency of Binge Drinking Not on file 11/12 Personal Safety Answer Date Recorded Getting School Help Needed Denies 10/08 Comments No Sex and Gender Information Value Date Recorded Sex Assigned at Not on file Legal Sex Female 3:47 AM RECORDS MANAGEMENT ASSOCIATE Gender Identity Not on file Sexual Orientation Not on file documented as of this encounter Plan of Treatment Not on file documented as of this encounter Visit Diagnoses Not on filedocumented in this encounter Care Teams Fishing Manager Relationship Specialty Start Date End Date Anna Dean MD PCP - General 01/27/18 Italo Tapia MD [address] [place] [address] Public Health Director Obstetrics and Gynecology 11/19/21 documented as of this encounter
--- OUTSIDE RECORDS SUMMARY | 2025-03-06 19:47 | XMS_ITS | Encounter Summary ---
Author Organization [facility] Address [address] [place] [address] Phone Care Team Providers Care Marshmallow Machine Operator Name Role Phone Nora aCse MD Primary Care Provider Anna Dean MD Primary Care Provider + Fred Dean MD Primary Care Provider Nora Case MD Primary Care Provider [phone] Anna Dean MD Primary Care Provider + Fred Dean MD Primary Care Provider Anna Dean MD Primary Care Provider + Fred Dean MD Primary Care Provider Anna Dean MD Primary Care Provider + Fred Dean MD Primary Care Provider Anna Dean MD Primary Care Provider + Anna Dean MD Primary Care Provider + Anna Dean MD Primary Care Provider + Fred Dean MD Primary Care Provider Anna Dean MD Primary Care Provider + Anna Dean MD Primary Care Provider + Fred Dean MD Primary Care Provider [phone] Anna Dean MD Primary Care Provider + Fred Dean MD Primary Care Provider [phone] Anna Dean MD Primary Care Provider + Italo Tapia MD Unavailable [phone] Encounter Details Date Type Department Care Team (Latest Contact Info) Description 03/26/2014 Orders Only [facility] Scanning, Provider Social History Tobacco Use Types Packs/Day Years Used Date Smoking Tobacco: Never Assessed Comments Unknown Sex and Gender Information Value Date Recorded Sex Assigned at Not on file Legal Sex Female 3:47 AM TRANSMISSION SPECIALIST Gender Identity Not on file Sexual Orientation Not on file documented as of this encounter Plan of Treatment Not on file documented as of this encounter Procedures Procedure Name Priority Date/Time Associated Diagnosis Comments SCAN - LABS 03/28/2014 SCAN - LABS 03/26/2014 documented in this encounter Results * SCAN - LABS (03/28/2014) us Provider Scanning Final Result * SCAN - LABS (03/26/2014) us Provider Scanning Final Result documented in this encounter Visit Diagnoses Not on filedocumented in this encounter Additional Health Concerns Infection Onset Date Last Indicated Resolved Time COVID: Suspected 10/17/2020 10/17/2020 10/17/2020 10:28 PM TRANSMISSION SPECIALIST Respiratory Infection (CONSTANTINO), contact + droplet Comment:Automatically added due to negative COVID-19 result. 10/17/2020 10/17/2020 10/31/2020 3:0 7 AM TRANSMISSION SPECIALIST documented as of this encounter Care Teams Marshmallow Machine Operator Relationship Specialty Start Date End Date Nora Case MD [address] [place] [address] PCP - General 01/28/17 02/01/17 Anna Dean MD [address] [place] [address] PCP - General 02/02/17 03/11/17 Fred Dean MD [address] [place] [address] PCP - General 03/12/17 03/12/17 Nora Case MD [address] [place] [address] PCP - General 03/13/17 04/27/17 Anna Dean MD [address] [place] [address] PCP - General 04/28/17 04/29/17 Fred Dean MD [address] [place] [address] PCP - General 04/30/17 04/30/17 Anna Dean MD [address] [place] [address] PCP - General 05/01/17 05/06/17 Fred Dean MD [address] [place] [address] PCP - General 05/07/17 05/27/17 Anna Dean MD [address] [place] [address] PCP - General 05/28/17 05/30/17 Fred Dean MD [address] [place] [address] PCP - General 05/31/17 05/31/17 Anna Dean MD [address] [place] [address] PCP - General 06/02/17 06/02/17 Anna Dean MD [address] [place] [address] [address] [place] [address] PCP - General 06/01/17 06/01/17 Anna Dean MD [address] [place] [address] PCP - General 06/03/17 06/15/17 Fred Dean MD [address] [place] [address] PCP - General 06/16/17 07/27/17 Anna Dean MD [address] [place] [address] PCP - General 07/28/17 08/09/17 Anna Dean MD [address] [place] [address] PCP - General 08/10/17 08/22/17 Fred Dean MD [address] [place] [address] PCP - General 08/23/17 09/02/17 Anna Dean MD [address] [place] [address] PCP - General 09/03/17 10/27/17 Fred Dean MD [address] [place] [address] PCP - General 10/28/17 01/26/18 Anna Dean MD [address] [place] [address] PCP - General 01/27/18 Italo Tapia MD [address] [place] [address] Medical Billing Assistant Obstetrics and Gynecology 11/19/21 documented as of this encounter
--- OUTSIDE RECORDS SUMMARY | 2025-03-06 19:47 | XMS_ITS | Encounter Summary ---
Author Organization [facility] Address [address] [place] [address] Phone Care Team Providers Care Pastry Supervisor Name Role Phone Anna Dean MD Primary Care Provider + Italo Tapia MD Unavailable [phone] Encounter Details Date Type Department Care Team (Latest Contact Info) Description 02/02/2025 Results Follow-Up [facility] Endocrinology Metabolism and Lipid [address] [facility] Advanced Medicine 13th [place] [address] [place] [address] Sophy Mcmillan MD [address] [facility] [address] [place] [address] Vitamin D 25 hydroxy, T4, free, TSH, Comprehensive metabolic panel Social History Tobacco Use Types Packs/Day Years [...] on file Legal Sex Female 3:47 AM 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
--- OUTSIDE RECORDS SUMMARY | 2025-03-06 19:48 | XMS_ITS | Clinical Summary ---
Author Organization [facility] [employer] Address [address] [place] [address] Care Team Providers Care Bolt Maker Name Role Phone Fred Dean MD Primary Care Provider [phone] Source Comments [facility] [employer],non-owned Affiliates and Associated Physician Practices is amultiple site organization consisting of ambulatory clinics and hospital sitesin [place], [place], [place] and [place]. This disclosure is being madepursuant to the Care Everywhere program and may not contain all information available regarding this patient. Last updated 18.[facility] [employer] Allergies Active Allergy Reactions Criticality Noted [...] on file Legal Sex Female 5:32 PM SEAMAN OFFICER Gender Identity Not on file Sexual Orientation [...] patient's age to complete this topic Insurance [facility] Care Teams Bolt Maker Relationship Specialty Start Date End Date Fred Dean MD [address] [place] [address] PCP - General 10/09/08
--- OUTSIDE RECORDS SUMMARY | 2025-03-06 19:48 | XMS_ITS ---
Author Organization [facility] Address [address] [place] [address] Care Team Providers Care Outdoor Recreation Specialist Name Role Phone Anna Dean MD Primary Care Provider + Italo Tapia MD Unavailable [phone] Active Problems Problem Noted Date Diagnosed Date S/P lumbar spinal fusion 12/08/2022 Hyperlipidemia 11/26/2022 History of migraine headaches 11/26/2022 Hypothyroidism 11/26/2022 Anxiety 11/26/2022 Depression 11/26/2022 Degenerative spondylolisthesis 10/20/2022 Overview (10/20/2022): Added automatically from request for surgery [id number] Enlarged uterus 07/24/2022 Postcoital bleeding 07/24/2022 Thyroid nodule 08/02/2020 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 Other than letrozole, no risk factors for osteoporosis and fragility fractures. DEXA consistent with osteopenia, with some decrease in BMD of around 5% over a 2 year period. Continue dietary and supplemental calcium and vitamin d. Vitamin D replete. Recommend weight bearing exercise. Will repeat DEXA in 1 year to evaluate for any further bone loss. No clear indication for osteoporosis medications at this time. [facility] (current) use of aromatase inhibitors 12/06/2018 Assessment & Plan (11/28/2019 2:46 PM CATH LAB MANAGER): -leading to bone loss and increasing risk of fractures -management as above Assessment & Plan (12/06/2018 3:17 PM CATH LAB MANAGER): Resulting in bone loss with osteopenia on DEXA. Plan to discontinue in 2023. Chest pain 11/07/2018 Dyspnea on exertion 11/07/2018 Palpitations 11/07/2018 PVC (premature ventricular contraction) 11/07/19 19 Spinal stenosis, lumbar trever on, with neurogenic claudication 10/25/2018 Overview (10/25/2018): Added automatically from request for surgery [id number] Lumbar radiculopathy 10/25/2018 Overview (10/25/2018): Added automatically from request for surgery [id number] History of breast cancer in adulthood 04/22/2018 Osteoarthritis 11/04/2016 Essential (primary) hypertension 11/04/2016 Heartburn 11/04/2016 Hot flash due to medication 12/18/2015 Encounter for antineoplastic immunotherapy 11/21 Malignant neoplasm of female breast 04/19/2014 Mass of breast 03/13/2014 Encounter for preventive health examination 09/10 Lower back injury 09/26/2009 Current Treatment and Therapy Plans Zoledronic Acid (Reclast) Infusion* Plan Start Date:03/02/2025 Plan Provider:Sophy Mcmillan MD Linked Problems [facility] (current) use of a romatase inhibitorsMalignant neoplasm of 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 Past Treatment and Therapy Plans Specialty Infusion Treatment Plan Name Start Date Discontinue Date Treatment Medications Discontinue Reason Plan Provider romosozumab (EVENITY) THERAPY PLAN 02/01/2024 09/06/2024 No medications scheduled. Financial Sophy Mcmillan MD denosumab (PROLIA) Injection 01/26/2023 02/01/2024 No medications scheduled. Therapy Complete Sophy Mcmillan MD Lifetime Dose Tracking * Chemical Lifetime Dose Automatic Entry Manual Entr y Fluoro Time 2.133 minutes 2.133 minutes 0 minutes Air kerma at the reference point (Ka,r) 40.193 mGy 4 0.193 mGy 0 mGy DLP 2,107 mGycm 2,107 mGycm 0 mGycm
--- OUTSIDE RECORDS SUMMARY | 2025-03-06 19:48 | XMS_ITS | Clinical Summary ---
Author Organization [facility] Address [address] [place] [address] Care Team Providers Care Receiving Team Member Name Role Phone Anna Dean MD Primary Care Provider + Italo Tapia MD Unavailable [phone] Allergies Active Allergy Reactions Criticality Noted Date Comments Levofloxacin Joint pain High 12/24/2024 Tendonitis in her knees Prednisone Redness Low 11/25/2022 Reports had some redness on face/chest around 1 year ago following prednisone, resolved 1 day later, unsure if d/t prednisone or true allergy Sulfa (Sulfonamide Antibiotics) Swelling,Rash Medium 07/31/2016 Omalizumab Hives Medium 11/26/2023 Medications spironolactone (ALDACTONE) 100 mg tabletIndications :hypertension Take 1 tablet (100 mg total) by mouth every morning Active melatonin 5 mg tabletIndications :Insomnia Take 2 tablets (10 mg total) by mouth nightly 6 Active omeprazole (PriLOSEC) 40 mg capsuleIndication s:Stress Ulcer Prophylaxis,Treat ment of Non-Bleeding Gastric Disorder,gerd Take 1 capsule (40 mg total) by mouth every morning 8 Active atorvastatin (LIPITOR) 10 mg tabletIndications :hyperlipidemia Take 1 tablet (10 mg total) by mouth daily after dinner 0 Active calcium carbonate (OS-DAYANNA) 1,500 mg (600 mg of elemental calcium) tabletIndications :Hypocalcemia Prevention Take 1 tablet (1,500 mg total) by mouth 2 (two) times a day 6 Active ALPRAZolam (XANAX) 0.5 mg tabletIndications :Insomnia,anxiety Take 1 tablet (0.5 mg total) by mouth nightly as needed 2 Active levocetirizine (XYZAL) 5 mg tabletIndications :Allergic Rhinitis Take 1 tablet (5 mg total) by mouth every evening Active denosumab (PROLIA) 60 mg/mL syringeIndication s:postmenopausal osteoporosis and high fracture risk Inject 1 mL (60 mg total) under the skin every 6 (six) months Active mometasone (NASONEX) 50 mcg/actuation nasal sprayIndications: Allergic Rhinitis Prevention Administer 2 sprays into each nostril as needed Active levothyroxine (SYNTHROID) 88 mcg tablet 3 Active vitamin B complex with vitamin C tablet daily Active calcium citrate-vitamin D3 250 mg-5 mcg (200 unit) tablet every 12 hours Active busPIRone (BUSPAR) 5 mg tablet every 8 hours Active dicyclomine (BENTYL) 20 mg tablet Take 1 tablet (20 mg total) by mouth 5 Active predniSONE (DELTASONE) 10 mg tabletIndications :Anti-inflammator y Take three tablets (40 mg) daily for 4 days in case of severe joint aches with Reclast 12 tablet 5 Active Active Problems Problem Noted Date Diagnosed Date S/P lumbar spinal fusion 12/08/2022 Hyperlipidemia 11/26/2022 History of migraine headaches 11/26/2022 Hypothyroidism 11/26/2022 Anxiety 11/26/2022 Depression 11/26/2022 Degenerative spondylolisthesis 10/20/2022 Overview (10/20/2022): Added automatically from request for surgery [id number] Enlarged uterus 07/24/2022 Postcoital bleeding 07/24/2022 Thyroid nodule 08/02/2020 Monoallelic mutation of CHEK2 gene in female pat ient 06/14/2020 Osteopenia 12/06/2018 Assessment & Plan (11/28/2019 2:45 PM OYSTER HARVESTER): -exacerbated by AI use -DEXA scan done last week revealed a significant decrease in her BMD since last year -since she will be receiving AI for about 4 more years and she has been having bone density loss we decided to start Prolia -will continue current calcium and vitamin D dose -will continue weight bearing exercise Assessment & Plan (12/06/2018 3:17 PM OYSTER HARVESTER): On letrozole with plans for 5 more [...] indication for osteoporosis medications at this time. FDC (current) use of aromatase inhibitors 12/06/2018 Assessment & Plan (11/28/2019 2:46 PM OYSTER HARVESTER): -leading to bone loss and increasing risk of fractures -management as above Assessment & Plan (12/06/2018 3:17 PM OYSTER HARVESTER): Resulting in bone loss with osteopenia on DEXA. Plan to discontinue in 2023. Chest pain 11/07/2018 Dyspnea on exertion 11/07/2018 Palpitations 11/07/2018 PVC (premature ventricular contraction) 11/07/19 19 Spinal stenosis, lumbar trever on, with neurogenic claudication 10/25/2018 Overview (10/25/2018): Added automatically from request for surgery [id number] Lumbar radiculopathy 10/25/2018 Overview (10/25/2018): Added automatically from request for surgery [id number] History of breast cancer in adulthood 04/22/2018 Osteoarthritis 11/04/2016 Essential (primary) hypertension 11/04/2016 Heartburn 11/04/2016 Hot flash due to medication 12/18/2015 Encounter for antineoplastic immunotherapy 11/21 Malignant neoplasm of female breast 04/19/2014 Mass of breast 03/13/2014 Encounter for preventive health examination 09/10 Lower back injury 09/26/2009 Encounters Date Type Department Care Team Description 03/02/2025 10:00 AM CDT Infusion [facility] Infusion Therapy [address] 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; Osteopenia, unspecified location; Other fdc (current) drug therapy 01/01/2025 Telephone [facility] Surgery [address] [place] [address] [address] [place] [address] Francy Estrada NP 01/01/2025 Results Follow-Up [facility] Surgery [address] [place] [address] [address] [place] [address] Francy Etsrada NP Jose D Post Clip Placement Right 01/01/2025 Results Follow-Up [facility] Surgery [address] [place] [address] [address] [place] [address] Francy Estrada NP MRI Guided Breast Biopsy Right, Surgical pathology 01/01/2025 Telephone [facility] Surgery [address] [place] [address] Francy Estrada NP 12/29/2024 8:35 AM CDT - 12/29/2024 11:59 PM CDT Hospital Encounter [facility] ([facility]) [address] [place] [address] Abnormal MRI, breast Discharge Disposition: Discharge to home or self care 12/29/2024 6:05 AM CDT - 12/29/2024 11:59 PM CDT Hospital Encounter [facility] ([facility]) [address] [place] [address] Abnormal MRI, breast Discharge Disposition: Discharge to home or self care 12/25/2024 12:00 PM CDT Office Visit [facility] Orthopaedic Surgery [address] [place] [address] Medical Office Building [address] [place] [phone] Noah Ray MD Pain in both knees, unspecified chronicity (Primary Dx); Primary osteoarthritis of both knees 12/24/2024 3:30 PM CDT Office Visit [facility] Care at [address] [address] Sonya Corona NP Abdominal pain (Primary Dx) 12/14/2024 Results Follow-Up [facility] Surgery [address] [facility] [address] [place] [address] Francy Estrada NP US Breast Right Limited 12/14/2024 Orders Only [facility] Surgery [address] [facility] [address] [place] [address] Francy Estrada NP Abnormal MRI, breast (Primary Dx) 12/13/2024 1:00 PM OYSTER HARVESTER - 12/13/2024 11:59 PM OYSTER HARVESTER Hospital Encounter [facility] [address] [place] [address] Abnormal MRI, breast Discharge Disposition: Discharge to home or self care from Last 3 Months Immunizations Immunization Administration Dates Next Due Hep A, Adult 06/29/2019 Influenza, Quadrivalent, Rec ombinant, Egg Free, Preservative Free, Intramuscular 06/29/2019 Influenza, Quadrivalent, Spl it, Intramuscular 08/16/2017,07/06/2016,07/12/2015 Influenza, Quadrivalent, Spl it, Preservative Free, Intramuscular 06/17/2020,07/27/2018 Sars-CoV-2, Unspecified 12/13/2020 Tdap 04/28/2018 ZOSTER Recombinant 11/19/2019,08/04/2019 Surgical History Surgery Date Site/Laterality Comments PORT REMOVAL 05/03/2015 N/A PORT PLACEMENT CHEST >5 YEARS 04/27/2014 N/A US UNLISTED PROCEDURE LYMPH SYSTEM 03/26/2014 N/A OOPHERECTOMY 10/11/2014 - 10/10/2015 Bilateral BREAST LUMPECTOMY 10/11/2013 - 10/10/2014 CHOLECYSTECTOMY 10/11/1999 - 10/10/2000 ABLATION uterine FL FLUORO GUIDED LUMBAR PUNCTURE 04/19/2018 Right FL FLUORO GUIDED LUMBAR PUNCTURE 06/10/2018 Right FL FLUORO GUIDED LUMBAR PUNCTURE 07/19/2018 Right FL FLUORO GUIDED LUMBAR PUNCTURE 09/13/2018 Right FL UPPER GI AIR CONTRAST W KUB 04/25/2021 Left FL UPPER GI AIR CONTRAST W KUB 07/24/2021 Left FL UPPER GI AIR CONTRAST W KUB 10/30/2021 Left BACK SURGERY 10/11/2018 - 10/10/2019 MANDIBLE SURGERY 10/11/1985 - 10/10/1986 COLONOSCOPY TONSILLECTOMY SPINAL FUSION 12/08/2022 L2-Sacrum/IL w/ Buchowski BREAST BIOPSY 06/07/2023 Right BREAST BIOPSY 12/29/2024 Right Medical History Medical History Date Comments Hypertension High cholesterol Peripheral neuropathy Cancer (HCC) rt breast Thyroid disease Gastric reflux Lumbar spondylolysis History of cancer chemotherapy 04/2015 b reast cancer therapy History of radiation therapy 09/2014 the rapy for breast cancer 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 06/14/2020 Motion sickness Hyperlipidemia 11/26/2022 Allergic rhinitis Family History Medical History Relation Name Comments Heart attack Father Heart disease Father Hypertension Father Kidney disease Mother Anesthesia problems Neg Hx Relation Name Status Comments Father [place] age 73 Mother Social History Tobacco Use Types Packs/Day Years Used Date Smoking Tobacco: Never Passive Smoke Exposure: Never Smokeless Tobacco: Never Tobacco Cessation:Counseling Given: Not Answered Alcohol Use Standard Drinks/Week Comments Yes 1 [...] on file Legal Sex Female 3:47 AM OYSTER HARVESTER Gender Identity Not on file Sexual Orientation Not on file Obstetrics History Last Filed Vital Signs Vital Sign Reading Time Taken Comments Blood Pressure 111/73 03/02/2025 10:00 AM CDT Pulse 61 03/02/2025 10:00 AM CDT Temperature 36.8 C (98.2 F) 01/30/2025 10:27 AM CDT Respiratory Rate 14 03/02/2025 10:00 AM CDT Oxygen Saturation 99% 12/24/2024 3:24 PM CDT Inhaled Oxygen Concentration - - Weight 88.6 kg (195 lb 6.4 oz) 01/30/2025 10:27 AM CDT Height 167.6 cm (5' 6) 01/30/2025 10:27 AM CDT Body Mass Index 31.54 01/30/2025 10:27 AM CDT Plan of Treatment Health Maintenance Due Date Last Done Comments Cervical Cancer Screening 1970 Colon Cancer Screening-Colonoscopy 1970 Depression Screening 1969 Hepatitis C Screening 1969 Hepatitis B Screening 1987 Regular Well Visit/Exam 18-64 1987 Breast Cancer Screening-Mammogram 05/30/2025 05/30/2024, 05/28/2023, 05/19/2022, Additional history exists Influenza Vaccine (Season Ended) 2025 06/17/2020, 06/29/2019, 07/27/2018, Additional history exists DTaP/Tdap/Td Vaccine (2 - Td or Tdap) 04/28/2028 04/28/2018 Zoster Vaccine Completed 11/19/2019, 08/04/2019 Pneumococcal vaccine <65 Aged Out No longer eligible based on patient's age to complete this topic Medical Devices Implanted Type Area Intelligence Chief Device Identifier Shelf Expiration Date Model / Serial / Lot Allosource 1-4mm Freeze Dried Crushed Graft 30ml Bone Cancellous [id number] - Sna - [id number] Implanted:Qty : 1 on 12/08/2022 by Sixto Allan MD at [facility] Bone N/A: Spine Lumbar Allosource 10/11/2025 [id number] / NA / [id number] Description:Implant pause pe rformed. Allosource 1-4mm Freeze Dried Crushed Graft 30ml Bone Cancellous [id number] - Sna - [id number] Implanted:Qty : 1 on 12/08/2022 by Sixto Allan MD at [facility] Bone N/A: Spine Lumbar Allosource 10/20/2025 [id number] / NA / [id number] Description:Implant pause pe rformed. Allosource 1-4mm Freeze Dried Crushed Graft 30ml Bone Cancellous [id number] - Sna - [id number] Implanted:Qty : 1 on 12/08/2022 by Sixto Allan MD at [facility] Bone N/A: Spine Lumbar Allosource 10/20/2025 [id number] / NA / [id number] Description:Implant pause pe rformed. Allosource 1-4mm Freeze Dried Crushed Graft 30ml Bone Cancellous [id number] - Sna - [id number] Implanted:Qty : 1 on 12/08/2022 by Sixto Allan MD at [facility] Bone N/A: Spine Lumbar Allosource 07/19/2026 [id number] / NA / [id number] Description:Implant pause pe rformed. Medtronic Inc Kit Graft Bone Sponge Xlg Infuse 8cc Granules [id number] - Sna - [id number] Implanted:Qty : 1 on 12/08/2022 by Sixto Allan MD at [facility] Other - see comments N/A: Spine Lumbar Medtronic Inc 02/08/2024 [id number] / NA / [id number] Description:Implant pause pe rformed. [employer] Creo Thread Spinal Cap Locking Nonsterile 1119.0010 - Sna - [id number] Implanted:Qty : 11 on 12/08/2022 by Sixto Allan MD at [facility] Other - see comments N/A: Spine Lumbar [employer] 1119.0010 / NA / Globus Creo 125 Straight Nadeem Implanted:Qty : 1 on 12/08/2022 by Sixto Allan MD at [facility] Other - see comments N/A: Spine Lumbar GLOBUS 1119.5125 / NA / [employer] Creo 5.5mm 125mm Curve Nadeem Spinal Titanium 1119.7125 - Sna - [id number] Implanted:Qty : 1 on 12/08/2022 by Sixto Allan MD at [facility] Other - see comments N/A: Spine Lumbar [employer] 1119.7125 / NA / Globus Creo Nadeem 5.5 X 150 Implanted:Qty : 1 on 12/08/2022 by iSxto Allan MD at [facility] Other - see comments N/A: Spine Lumbar [employer] / NA / [employer] Creo Od6.5 Mm L45 Mm Thread Polyaxial Spine Screw Bone Titanium 5146.1647 - Sna - [id number] Implanted:Qty : 2 on 12/08/2022 by Sixto Allan MD at [facility] Screw N/A: Spine Lumbar [employer] 5146.1647 / NA / [employer] Creo Od6.5 Mm L50 Mm Thread Polyaxial Spine Screw Bone Titanium 5146.1652 - Sna - [id number] Implanted:Qty : 4 on 12/08/2022 by Sixto Allan MD at [facility] Screw N/A: Spine Lumbar [employer] 5146.1652 / NA / [employer] Creo Od5.5 Mm L50 Mm Thread Polyaxial Spine Screw Bone Titanium 5146.1552 - Sna - [id number] Implanted:Qty : 1 on 12/08/2022 by Sixto Allan MD at [facility] Screw N/A: Spine Lumbar [employer] 5146.1552 / NA / [employer] Creo Od5.5 Mm L45 Mm Thread Polyaxial Spine Screw Bone Titanium 5146.1547 - Sna - [id number] Implanted:Qty : 4 on 12/08/2022 by Sixto Allan MD at [facility] Screw N/A: Spine Lumbar [employer] 5146.1547 / NA / [employer] Creo Od8.5 Mm L80 Mm Thread Polyaxial Spine Screw Bone Titanium 5146.1882 - Sna - [id number] Implanted:Qty : 1 on 12/08/2022 by Sixto Allan MD at [facility] Screw N/A: Spine Lumbar [employer] 5146.1882 / NA / Mandible Fx,Wire Mandible Orthocon Inc Os-201 Hemasorb Spatula Wax 2gm Bone Sterile - [id number] Implanted:Qty : 1 on 11/14/2018 by Keny Davis MD at [facility] N/A: Spine Lumbar [employer] Inc OS-201 / / Hologic Limited Partnership Eviva 13cm Identifier Biopsy Site Kkxye-Mziam-5 3 - [id number] Implanted:Qty : 1 on 06/07/2023 by Socorro Vee MD at [facility] Right: Breast [employer] Partnership [id number] 02/16/2024 [facility] / / [id number] Hologic Limited [facility] Trimark Second Marker Breast Biopsy Disposable Trimark Td 2s 13-Mr - [id number] Implanted:Qty : 1 on 12/29/2024 at [facility] Right: Breast GoodyTag Limited [facility] [id number] 01/19/2026 TRIMARK TD 2S 13-MR / / [id number] Procedures Procedure Name Priority Date/Time Associated Diagnosis Comments COMPREHENSIVE METABOLIC PANEL Routine 01/30/2025 11:30 AM CDT Osteopenia, unspecified location TSH Routine 01/30/2025 11:30 AM CDT 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 T4, FREE Routine 01/30/2025 11:30 AM CDT 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 VITAMIN D 25 HYDROXY Routine 01/30/2025 11:30 AM CDT Osteopenia, unspecified location DEXA AXIAL SKELETON BONE DENSITY 1 OR MORE SITES Schedule Routine, Read Routine (OP Routine) 01/26/2025 10:09 AM CDT FDC (current) use of aromatase inhibitors Osteopenia, unspecified location JOSE D POST CLIP PLACEMENT RIGHT Schedule Routine, Read Routine (OP Routine) 12/29/2024 8:44 AM CDT Abnormal MRI, breast MRI GUIDED BREAST BIOPSY RIGHT Schedule Routine, Read Routine (OP Routine) 12/29/2024 8:20 AM CDT Abnormal MRI, breast SURGICAL PATHOLOGY Routine 12/29/2024 7: 54 AM CDT Abnormal MRI, breast ID ARTHROCENTESIS ASPIR&/INJ MAJOR JT/BURSA W/O US Routine 12/25/2024 12:00 PM CDT Pain in both knees, unspecified chronicity Primary osteoarthritis of both knees US BREAST RIGHT LIMITED Schedule Routine, Read Routine (OP Routine) 12/13/2024 1:55 PM OYSTER HARVESTER Abnormal MRI, breast SCREENING MAMMOGRAM BILATERAL W JOSE D Schedule Routine, Read Routine (OP Routine) 05/30/2024 11:09 AM CDT History of breast cancer in adulthood from Last 3 Months or Most Recently Relevant to Health Maintenance Results * Vitamin D 25 hydroxy (01/30/2025 11:30 AM CDT) Vitamin D 33.8 20.0 - 100.0 ng/mL [facility] Comment: VITAMIN D DEFICIENCY = LESS THAN or EQUAL TO 20 ng/mL VITAMIN D INSUFFICIENCY = 21 - 29 ng/mL VITAMIN D SUFFICIENT = 30-100 ng/mL Blood 01/30/2025 11:3 0 AM CDT 01/30/2025 12:49 PM CDT us Sophy Mcmillan MD LAB BLOOD ORDERABLES Final Resu lt Performing Organization Address [facility] Co de Phone Number [facility] * TSH (01/30/2025 11:30 AM CDT) TSH (Thyrotropin) 3.23 0.27 - 4.20 uIU/mL [facility] Blood 01/30/2025 11:3 0 AM CDT 01/30/2025 12:49 PM CDT Sophy Mcmillan MD LAB BLOOD ORDERABLES Final Resu lt Performing Organization Address [facility] Co de Phone Number [facility] * T4, free (01/30/2025 11:30 AM CDT) Free T4 1.41 0.80 - 1.80 ng/dL [facility] Blood 01/30/2025 11:3 0 AM CDT 01/30/2025 12:49 PM CDT us Sophy Mcmillan MD LAB BLOOD ORDERABLES Final Resu lt Performing Organization Address [facility]/ZIP Co de Phone Number [facility] * Comprehensive metabolic panel (01/30/2025 11:30 AM CDT) Total Protein 7.3 6.1 - 8.4 g/dL [facility] Albumin 4.5 3.5 - 5.2 g/dL [facility] Calcium 9.8 8.6 - 10.3 mg/dL [facility] BUN 14 7 - 23 mg/dL [facility] Total Bilirubin 0.37 0.20 - 1.40 mg/dL [facility] Alk Phos, Total 86 35 - 129 IU/L [facility] AST (SGOT) 23 11 - 47 IU/L [facility] ALT (SGPT) 32 6 - 53 IU/L [facility] Creatinine 1.05 0.60 - 1.10 mg/dL [facility] Sodium 137 135 - 145 mmol/L [facility] Potassium 4.1 3.3 - 5.1 mmol/L [facility] Chloride 98 95 - 107 mmol/L [facility] CO2 Content 24 21 - 29 mmol/L [facility] Glucose 94 64 - 99 mg/dL [facility] Comment: NONFASTING GLUCOSE RANGE = 64-199 mg/dL FASTING GLUCOSE 64 - 99 = NORMAL FASTING GLUCOSE 100 - 125 = IMPAIRED FASTING GLUCOSE FASTING GLUCOSE >=126 = PROVISIONAL DIAGNOSIS OF DIABETES eGFR 62.7 >60.0 mL/min/1.7 3 m2 [facility] Blood 01/30/2025 11:3 0 AM CDT 01/30/2025 12:49 PM CDT us Sophy Mcmillan MD LAB BLOOD ORDERABLES Final Resu lt Performing Organization Address [facility]/ZIP Co de Phone Number [facility] * Dexa Axial Skeleton Bone Density 1 or 2 Site (01/26/2025 10:09 AM CDT) Anatomical Region Laterality Modality Body N/A Radiographic Kalani ging Narrative 01/26/2025 11:48 AM CDT Patient Name: Hafsa Brooks Date of : 1970 Date of scan: 01/26/2025 Bone mineral density was performed on a [employer] Discovery Densitometer. Based on machine cross-calibration and precision studies the least significant changes of this densitometer is 0.024 g/cm2 at the spine, 0.020 g/cm2 at the total proximal femur, and 0.014g/cm2 at the forearm. HISTORY: This is a 54 y.o. postmenopausal female with a history of breast cancer, low bone mass, thyroid disease, and vitamin D deficiency. She reports that she has never smoked. She has never been exposed to tobacco smoke. She has never used smokeless tobacco. Currently on treatment with calcium, vitamin D, denosumab (Prolia), and thyroid hormone, previously treated with calcium, vitamin D, denosumab (Prolia), and thyroid hormone, and Previously treated with glucocorticoids, tamoxifen, and aromatase inhibitor. INDICATIONS: Menopause status, treatment monitoring, vitamin D deficiency, and history of low bone mass. FINDINGS: BONE MINERAL DENSITY OF THE PROXIMAL FEMUR Bone Mineral Density (BMD) of the left hip total was found to be 0.979 gm/cm2. This corresponds to a T-score standard deviations from the mean of young adults of 0.3. Femoral neck is 0.786 gm/cm2 with a T-score (standard deviations from the mean of young adults) of -0.6. When compared to the previous study of 01/31/2024 there has been no significant changes in bone density. BONE MINERAL DENSITY OF THE FOREARM Bone Mineral density (BMD) of the right proximal 1/3 of the radius measures 0.712 gm/cm2. This corresponds to a T-score (standard deviations from the mean of young adults) of 0.3. When compared to the previous study of 01/31/2024 there has been a 0.029 gm/cm (4.3%) increase in bone density that is considered significant. A forearm bone density study was performed instead of a spine study due to history of spinal surgery. SUMMARY: Bone mineral density is near the young adult normal mean with no increased risk for fracture. There has been a significant increase in bone density since previous measurement. ADDITIONAL COMMENTS: Postmenopausal Women and Men Over 50: Diagnostic criteria: Osteoporosis: BMD at or below -2.5 T-score; Osteopenia (low bone mass): BMD between -1.0 and -2.5 T-score. If the patient has a history of a fragility fracture, a fracture that occurred with trauma equivalent to a fall from a standing position or less, then the diagnosis is osteoporosis regardless of bone density. The history and data sections of the bone mineral density scan were prepared by Emma Calderon(Vanessa)(Moni)(DONNA) CBDT who is accredited by the International Society of Clinical Densitometry. The overall patient assessment and scan interpretation were performed by Cinthia Huizar M.D. who is certified by the International Society of Clinical Densitometry. [id number] us Sophy Mcmillan MD IMG DXA PROCEDURES Final Result * Jose D Post Clip Placement Right (12/29/2024 8:44 AM CDT) Anatomical Region Laterality Modality Breast Right Mammography 12/29/2024 2:36 PM CDT Addenda Addendum by Aleah Bell MD on 01/01/2025 10:11 AM CDT ADDENDUM: Pathology from biopsy of the right breast showed Breast, right, lower inner quadrant, MRI guided needle core biopsy - Breast tissue with atrophic and sclerotic lobules and fat necrosis, consistent with prior treatment - Focal usual ductal hyperplasia - No carcinoma identified ; please refer to pathology report for details. Pathology is benign and concordant. Normal interval screening mammography and annual surveillance breast MRI is recommended. Results and recommendations will be discussed with the patient by [facility] or referring provider staff and will be separately documented in the medical record. Dictated by: Quirino Power D.O. The radiology attending physician has personally reviewed this study, and had reviewed and/or edited this written report and agrees with it. This addendum is being issued to correct the body of the report where it discusses clip positioning. The hourglass tissue marker is approximately 2 cm LATERALLY displaced (not medially as in the original report). Electronically signed by: Damaris Andrade M.D. Impressions 12/29/2024 4:13 PM CDT Successful vacuum-assisted core needle biopsy of RIGHT breast utilizing MRI guidance. Pathology is pending. ASSESSMENT: Post Procedure Mammograms for Marker Placement. Dictated by: Quirino Power D.O. The radiology attending physician has personally reviewed this study, and had reviewed and/or edited this written report and agrees with it. Electronically signed by: Damaris Andrade M.D. Narrative 12/29/2024 4:13 PM CDT EXAMINATION: RIGHT BREAST VACUUM-ASSISTED CORE BIOPSY UTILIZING MRI GUIDANCE, ONE LESION/SITE; PLACEMENT OF A BIOPSY TISSUE MARKER CLIP; AND RIGHT UNILATERAL FULL FIELD DIGITAL POST-PROCEDURE MAMMOGRAM WITH TOMOSYNTHESIS HISTORY: Abnormal breast MRI. 54-year-old woman presents for MRI guided biopsy of one of two adjacent enhancing masses in the right breast. She has a history of invasive ductal carcinoma in the right breast status post BCT in 2013, and has had a benign stereotactic guided biopsy of the right breast (marked by a cork clip). MR guided core needle biopsy is requested to evaluate for malignancy. COMPARISON: Multiple prior studies, most recently 12/13/2024 and dating back to 03/26/2014. CONTRAST: Gadoterate meglumine, 16 ml BREAST PARENCHYMAL COMPOSITION: There are scattered areas of fibroglandular density. PROCEDURE AND FINDINGS: The risks, potential benefits, and reasonable alternatives of the procedure were discussed with the patient. Her questions were answered, and written informed consent was obtained. The patient was placed in the prone position on the MRI table. After sterile preparation of the skin, the breast was placed in a compression grid. Magnetic resonance imaging was performed with a dedicated breast imaging coil before and after intravenous administration of gadolinium, from which subtracted images were obtained. 1% lidocaine and 2% lidocaine with epinephrine were utilized for local anesthesia and hemostasis about the biopsy site. A small skin incision was made with a #11 scalpel blade. A 9 gauge Suros introducer needle and sheath were then advanced through the skin incision to the target lesion from a medial approach utilizing MR guidance. Additional magnetic resonance images were obtained to confirm appropriate sheath positioning. Subsequently, a 9 gauge Suros vacuum assisted biopsy needle was advanced through the sheath and a total of 13 tissue cores were obtained. Post biopsy magnetic resonance images confirm biopsy site changes in the expected position. A TriMark hourglass-shaped tissue marker clip was then placed at the biopsy site. The sheath was removed and hemostasis was achieved. Dermabond and an ice pack were applied. There was no evidence of significant immediate complication. The patient was given verbal as well as written post procedural instructions prior to release from the department. The tissue cores were submitted in formalin to surgical pathology for histologic analysis. A RIGHT unilateral two-view full field digital mammogram with digital breast tomosynthesis was obtained post procedure and this demonstrates that the tissue marker clip is displaced medially from the biopsy site by approximately 2 cm. The attending radiologist, Dr. Damaris Andrade M.D., was present throughout the entire procedure. Dr. Quirino Power DO (breast imaging fellow). Procedure Note Damaris Andrade MD / Aleah Bell MD - 12/29/2024 EXAMINATION: RIGHT BREAST VACUUM-ASSISTED CORE BIOPSY UTILIZING MRI GUIDANCE, ONE LESION/SITE; PLACEMENT OF A BIOPSY TISSUE MARKER CLIP; AND RIGHT UNILATERAL FULL FIELD DIGITAL POST-PROCEDURE MAMMOGRAM WITH TOMOSYNTHESIS HISTORY: Abnormal breast MRI. 54-year-old woman presents for MRI guided biopsy of one of two adjacent enhancing masses in the right breast. She has a history of invasive ductal carcinoma in the right breast status post BCT in 2013, and has had a benign stereotactic guided biopsy of the right breast (marked by a cork clip). MR guided core needle biopsy is requested to evaluate for malignancy. COMPARISON: Multiple prior studies, most recently 12/13/2024 and dating back to 03/26/2014. CONTRAST: Gadoterate meglumine, 16 ml BREAST PARENCHYMAL COMPOSITION: There are scattered areas of fibroglandular density. PROCEDURE AND FINDINGS: The risks, potential benefits, and reasonable alternatives of the procedure were discussed with the patient. Her questions were answered, and written informed consent was obtained. The patient was placed in the prone position on the MRI table. After sterile preparation of the skin, the breast was placed in a compression grid. Magnetic resonance imaging was performed with a dedicated breast imaging coil before and after intravenous administration of gadolinium, from which subtracted images were obtained. 1% lidocaine and 2% lidocaine with epinephrine were utilized for local anesthesia and hemostasis about the biopsy site. A small skin incision was made with a #11 scalpel blade. A 9 gauge Suros introducer needle and sheath were then advanced through the skin incision to the target lesion from a medial approach utilizing MR guidance. Additional magnetic resonance images were obtained to confirm appropriate sheath positioning. Subsequently, a 9 gauge Suros vacuum assisted biopsy needle was advanced through the sheath and a total of 13 tissue cores were obtained. Post biopsy magnetic resonance images confirm biopsy site changes in the expected position. A TriMark hourglass-shaped tissue marker clip was then placed at the biopsy site. The sheath was removed and hemostasis was achieved. Dermabond and an ice pack were applied. There was no evidence of significant immediate complication. The patient was given verbal as well as written post procedural instructions prior to release from the department. The tissue cores were submitted in formalin to surgical pathology for histologic analysis. A RIGHT unilateral two-view full field digital mammogram with digital breast tomosynthesis was obtained post procedure and this demonstrates that the tissue marker clip is displaced medially from the biopsy site by approximately 2 cm. The attending radiologist, Dr. Damaris Andrade M.D., was present throughout the entire procedure. Dr. Quirino Power DO (breast imaging fellow). IMPRESSION: Successful vacuum-assisted core needle biopsy of RIGHT breast utilizing MRI guidance. Pathology is pending. ASSESSMENT: Post Procedure Mammograms for Marker Placement. Dictated by: Quirino Power D.O. The radiology attending physician has personally reviewed this study, and had reviewed and/or edited this written report and agrees with it. Electronically signed by: Damaris Andrade M.D. Francy Estrada NP IM MAMMO PROCEDURES Edite d Result - Final * MRI Guided Breast Biopsy Right (12/29/2024 8:20 AM CDT) Anatomical Region Laterality Modality Breast Right Magnetic Resonan ce 12/29/2024 2:36 PM CDT Addenda Addendum by Aleah Bell MD on 01/01/2025 10:11 AM CDT ADDENDUM: Pathology from biopsy of the right breast showed Breast, right, lower inner quadrant, MRI guided needle core biopsy - Breast tissue with atrophic and sclerotic lobules and fat necrosis, consistent with prior treatment - Focal usual ductal hyperplasia - No carcinoma identified ; please refer to pathology report for details. Pathology is benign and concordant. Normal interval screening mammography and annual surveillance breast MRI is recommended. Results and recommendations will be discussed with the patient by [facility] or referring provider staff and will be separately documented in the medical record. Dictated by: Quirino Power D.O. The radiology attending physician has personally reviewed this study, and had reviewed and/or edited this written report and agrees with it. This addendum is being issued to correct the body of the report where it discusses clip positioning. The hourglass tissue marker is approximately 2 cm LATERALLY displaced (not medially as in the original report). Electronically signed by: Damaris Andrade M.D. Impressions 12/29/2024 4:13 PM CDT Successful vacuum-assisted core needle biopsy of RIGHT breast utilizing MRI guidance. Pathology is pending. ASSESSMENT: Post Procedure Mammograms for Marker Placement. Dictated by: Quirino Power D.O. The radiology attending physician has personally reviewed this study, and had reviewed and/or edited this written report and agrees with it. Electronically signed by: Damaris Andrade M.D. Narrative 12/29/2024 4:13 PM CDT EXAMINATION: RIGHT BREAST VACUUM-ASSISTED CORE BIOPSY UTILIZING MRI GUIDANCE, ONE LESION/SITE; PLACEMENT OF A BIOPSY TISSUE MARKER CLIP; AND RIGHT UNILATERAL FULL FIELD DIGITAL POST-PROCEDURE MAMMOGRAM WITH TOMOSYNTHESIS HISTORY: Abnormal breast MRI. 54-year-old woman presents for MRI guided biopsy of one of two adjacent enhancing masses in the right breast. She has a history of invasive ductal carcinoma in the right breast status post BCT in 2013, and has had a benign stereotactic guided biopsy of the right breast (marked by a cork clip). MR guided core needle biopsy is requested to evaluate for malignancy. COMPARISON: Multiple prior studies, most recently 12/13/2024 and dating back to 03/26/2014. CONTRAST: Gadoterate meglumine, 16 ml BREAST PARENCHYMAL COMPOSITION: There are scattered areas of fibroglandular density. PROCEDURE AND FINDINGS: The risks, potential benefits, and reasonable alternatives of the procedure were discussed with the patient. Her questions were answered, and written informed consent was obtained. The patient was placed in the prone position on the MRI table. After sterile preparation of the skin, the breast was placed in a compression grid. Magnetic resonance imaging was performed with a dedicated breast imaging coil before and after intravenous administration of gadolinium, from which subtracted images were obtained. 1% lidocaine and 2% lidocaine with epinephrine were utilized for local anesthesia and hemostasis about the biopsy site. A small skin incision was made with a #11 scalpel blade. A 9 gauge Suros introducer needle and sheath were then advanced through the skin incision to the target lesion from a medial approach utilizing MR guidance. Additional magnetic resonance images were obtained to confirm appropriate sheath positioning. Subsequently, a 9 gauge Suros vacuum assisted biopsy needle was advanced through the sheath and a total of 13 tissue cores were obtained. Post biopsy magnetic resonance images confirm biopsy site changes in the expected position. A TriMark hourglass-shaped tissue marker clip was then placed at the biopsy site. The sheath was removed and hemostasis was achieved. Dermabond and an ice pack were applied. There was no evidence of significant immediate complication. The patient was given verbal as well as written post procedural instructions prior to release from the department. The tissue cores were submitted in formalin to surgical pathology for histologic analysis. A RIGHT unilateral two-view full field digital mammogram with digital breast tomosynthesis was obtained post procedure and this demonstrates that the tissue marker clip is displaced medially from the biopsy site by approximately 2 cm. The attending radiologist, Dr. Damaris Andrade M.D., was present throughout the entire procedure. Dr. Quirino Power DO (breast imaging fellow). Procedure Note Damaris Andrade MD / Aleah Bell MD - 12/29/2024 EXAMINATION: RIGHT BREAST VACUUM-ASSISTED CORE BIOPSY UTILIZING MRI GUIDANCE, ONE LESION/SITE; PLACEMENT OF A BIOPSY TISSUE MARKER CLIP; AND RIGHT UNILATERAL FULL FIELD DIGITAL POST-PROCEDURE MAMMOGRAM WITH TOMOSYNTHESIS HISTORY: Abnormal breast MRI. 54-year-old woman presents for MRI guided biopsy of one of two adjacent enhancing masses in the right breast. She has a history of invasive ductal carcinoma in the right breast status post BCT in 2013, and has had a benign stereotactic guided biopsy of the right breast (marked by a cork clip). MR guided core needle biopsy is requested to evaluate for malignancy. COMPARISON: Multiple prior studies, most recently 12/13/2024 and dating back to 03/26/2014. CONTRAST: Gadoterate meglumine, 16 ml BREAST PARENCHYMAL COMPOSITION: There are scattered areas of fibroglandular density. PROCEDURE AND FINDINGS: The risks, potential benefits, and reasonable alternatives of the procedure were discussed with the patient. Her questions were answered, and written informed consent was obtained. The patient was placed in the prone position on the MRI table. After sterile preparation of the skin, the breast was placed in a compression grid. Magnetic resonance imaging was performed with a dedicated breast imaging coil before and after intravenous administration of gadolinium, from which subtracted images were obtained. 1% lidocaine and 2% lidocaine with epinephrine were utilized for local anesthesia and hemostasis about the biopsy site. A small skin incision was made with a #11 scalpel blade. A 9 gauge Suros introducer needle and sheath were then advanced through the skin incision to the target lesion from a medial approach utilizing MR guidance. Additional magnetic resonance images were obtained to confirm appropriate sheath positioning. Subsequently, a 9 gauge Suros vacuum assisted biopsy needle was advanced through the sheath and a total of 13 tissue cores were obtained. Post biopsy magnetic resonance images confirm biopsy site changes in the expected position. A TriMark hourglass-shaped tissue marker clip was then placed at the biopsy site. The sheath was removed and hemostasis was achieved. Dermabond and an ice pack were applied. There was no evidence of significant immediate complication. The patient was given verbal as well as written post procedural instructions prior to release from the department. The tissue cores were submitted in formalin to surgical pathology for histologic analysis. A RIGHT unilateral two-view full field digital mammogram with digital breast tomosynthesis was obtained post procedure and this demonstrates that the tissue marker clip is displaced medially from the biopsy site by approximately 2 cm. The attending radiologist, Dr. Damaris Andrade M.D., was present throughout the entire procedure. Dr. Quirino Power DO (breast imaging fellow). IMPRESSION: Successful vacuum-assisted core needle biopsy of RIGHT breast utilizing MRI guidance. Pathology is pending. ASSESSMENT: Post Procedure Mammograms for Marker Placement. Dictated by: Quirino Power D.O. The radiology attending physician has personally reviewed this study, and had reviewed and/or edited this written report and agrees with it. Electronically signed by: Damaris Andrade M.D. Francy Estrada [facility] MRI PROCEDURES Edited Result - Final * Surgical pathology (12/29/2024 7:54 AM CDT) Tissue specimen (specimen) (Breast biopsy, needle core) 12/29/2024 7:54 AM CDT Comment:Right Breast MRI Bio psy Mass BIRAD 4B - lower inner quadrant. This is one of two adjacent similarly sized masses, this one measured up to 0.6 cm. This could represent evolving fat necrosis versus malignancy. Located near prior surgical site. Narrative PATHOLOGY [facility] - 01/01/2025 9:00 AM CDT EPIC results best viewed via link to PDF [facility] [place] [address] Note to Patients: This report may contain a detailed description of human tissue sent by a health care provider to the laboratory for pathologic evaluation. The content of this report is essential for diagnosis and may provide important critical findings. This information may be unfamiliar to patients to review without a medical professional present. It is advised that the patient review this report in the presence of a health care provider who can answer questions and explain the details. SURGICAL PATHOLOGY REPORT FINAL Patient Name: HAFSA BROOKS Gender: F : 1970 (Age: 54) Address: [address] [place] [id number] Hospital #: [id number] Taken:12/29/2024 Received:12/29/2024 Reported: 01/01/2025 Patient Type: [facility] Ancillary Service: UNKNOWN Location: Physician(s): MD Francy Werner, CHELE Dean M.D. Diagnosis: Breast, right, lower inner quadrant, MRI guided needle core biopsy - Breast tissue with atrophic and sclerotic lobules and fat necrosis, consistent with prior treatment - Focal usual ductal hyperplasia - No carcinoma identified fw12/31/2024 16:44 By this signature, I attest that the above diagnosis is based upon my personal examination of the slides(and/or other material indicated in the diagnosis). Jesus Tran M.D. Report Electronically Reviewed and Signed Out By eJsus Tran M.D. 01/01/2025 09:00:13 Brian Duron M.D. History: The patient is a 54-year-old woman presenting for abnormal MRI breast; one of two adjacent similarly sized masses, this one measured up to 0.6 cm; differential includes evolving fat necrosis versus malignancy; located near prior surgical site. Operative procedure: Right breast biopsy, BI-RADS 4B. Specimen(s) Received: A: Right breast mri biopsy mass birad 4b lower inner quadrant Gross Description: Received in formalin, labeled with the patient s identifiers and right breast MRI biopsy mass BI-RADS 4B lower inner quadrant are 13 white and yellow cores of fibrofatty tissue (1.7-2.8 cm each in length by 0.1-0.3 cm in diameter). Labeled A1 to A7. Jar 0. Placed in formalin immediately after collection. Total fixation time= 9.5 hours. sxst/12/29/2024 11:32 PA(s): Elvia Christiansen By this signature, I attest that the above diagnosis is based upon my personal examination of the slides(and/or other material). Addenda/Procedures The performance characteristics of some immunohistochemical stains, fluorescence in-situ hybridization tests and immunophenotyping by flow cytometry cited in this report (if any) were determined by the Surgical Pathology and Flow Cytometry Departments at [facility] as part of an ongoing ethanol quality leader program and in compliance with federally mandated regulations drawn from the Clinical Laboratory Improvement Act of 1988 (CLIA '88). Some of these tests rely on the use of analyte specific reagents and are subject to specific labeling requirements by the US Food and Drug Administration. Such diagnostic tests may only be performed in a facility that is certified by the Department of Health and Human Services as a high complexity laboratory under CLIA '88. The FDA has determined that such clearance or approval is not necessary. This test is used for clinical purposes. It should not be regarded as investigational or for research. Nevertheless, federal rules concerning the medical use of analyte specific reagents require that the following disclaimer be attached to the report: This test was developed and its performance characteristics determined by the Surgical Pathology and Flow Cytometry Departments of [facility]. It has not been cleared or approved by the U. S. Food and Drug Administration. IMAGES AND SCANNED DOCUMENTS, IF INCLUDED, ONLY VIEWABLE IN PDF VERSION OF REPORT us Francy Estrada OPHTHALMIC MEDICAL TECHNOLOGIST LAB PATHOLOGY ORDERABLES F inal Result PATHOLOGY [facility] 3rd Floor [place], [place] [phone] * ID ARTHROCENTESIS ASPIR&/INJ MAJOR JT/BURSA W/O US (12/25/2024 12:00 PM CDT) Narrative Noah Ray MD - 12/25/2024 12:00 PM CDT Noah Ray MD 12/25/2024 2:16 PM Large Joint Injection: bilateral knee Performed by: Noah Ray MD Authorized by: Noah Ray MD Large Joint Injection/Aspiration: Consent Given by: Patient Site marked: the procedure site was marked Verbal consent obtained: Yes Supporting Documentation: Indications: Pain Procedure Details: Location: Knee Site: Bilateral knee Prep: patient was prepped using a clean technique Needle Size: 25 G Approach: Anterolateral Ultrasound guided: No Fluroscopic guidance: No Medications Right Large Joint Injection: 2 mL BUPivacaine HCl 0.25 % (2.5 mg/mL); 4 mL lidocaine 10 mg/mL (1 %); 40 mg triamcinolone 40 mg/mL Medications Left Large Joint Injection: 3 mL BUPivacaine HCl 0.25 % (2.5 mg/mL); 4 mL lidocaine 10 mg/mL (1 %); 40 mg triamcinolone 40 mg/mL Patient tolerance: Patient tolerated the procedure well with no immediate complications us Noah Ray MD IN CLINIC/BEDSIDE ORDERABL ES Final Result * US Breast Right Limited (12/13/2024 1:55 PM OYSTER HARVESTER) Anatomical Region Laterality Modality Breast Right Ultrasound 12/13/2024 2:14 PM OYSTER HARVESTER Impressions 12/13/2024 2:14 PM OYSTER HARVESTER By right 5:00 small hypoechoic mass with probable clip, there are small multilobular hypoechoic changes without abnormal enhancement. Although US findings may correlate to the nearby small enhancing masses medial to the clip at MR, MR provides better visualization for biopsy. OVERALL FINAL ASSESSMENT: SUSPICIOUS. BI-RADS Category 4B: Moderate suspicion for malignancy. RECOMMENDATION: As per MR report, recommend MR guided biopsy of the right lower inner [id number] small enhancing masses. Dr. Hooksdiscussed the above findings and recommendations with the patient. She has been scheduled to return to the [facility] for MR biopsy on 12/29 at 7:00 AM. This facility will contact the referring clinician's office for an order. Electronically signed by: Ritika Hooks MD Narrative 12/13/2024 2:14 PM OYSTER HARVESTER EXAMINATION: RIGHT BREAST ULTRASOUND HISTORY: MR directed ultrasound of 2 small enhancing masses in the right lower inner breast, medial to the clip from prior benign stereotactic biopsy in 05/2023 (pathology stromal fibrosis and fat necrosis). Prior breast invasive ductal carcinoma, status post BCT in 2013. Chek 2 gene mutation. COMPARISON: MR breast 11/21/2024 and 11/26/2023; mammography 05/30/2024; stereotactic right breast biopsy 06/07/2023 TECHNIQUE: Directed ultrasound evaluation of the RIGHT breast was performed by a trained cake inspector and by Dr. Hooks. ULTRASOUND FINDINGS: In the right 5:00 breast 6 cm from nipple, there is a small hypoechoic mass with probable echogenic clip present. Next to this, there are small multilobular hypoechoic changes without abnormal enhancement. No other focal mass is present. Procedure Note Ritika Hooks MD - 12/13/2024 EXAMINATION: RIGHT BREAST ULTRASOUND HISTORY: MR directed ultrasound of 2 small enhancing masses in the right lower inner breast, medial to the clip from prior benign stereotactic biopsy in 05/2023 (pathology stromal fibrosis and fat necrosis). Prior breast invasive ductal carcinoma, status post BCT in 2013. Chek 2 gene mutation. COMPARISON: MR breast 11/21/2024 and 11/26/2023; mammography 05/30/2024; stereotactic right breast biopsy 06/07/2023 TECHNIQUE: Directed ultrasound evaluation of the RIGHT breast was performed by a trained cake inspector and by Dr. Hooks. ULTRASOUND FINDINGS: In the right 5:00 breast 6 cm from nipple, there is a small hypoechoic mass with probable echogenic clip present. Next to this, there are small multilobular hypoechoic changes without abnormal enhancement. No other focal mass is present. IMPRESSION: By right 5:00 small hypoechoic mass with probable clip, there are small multilobular hypoechoic changes without abnormal enhancement. Although US findings may correlate to the nearby small enhancing masses medial to the clip at MR, MR provides better visualization for biopsy. OVERALL FINAL ASSESSMENT: SUSPICIOUS. BI-RADS Category 4B: Moderate suspicion for malignancy. RECOMMENDATION: As per MR report, recommend MR guided biopsy of the right lower inner [id number] small enhancing masses. Dr. Hooksdiscussed the above findings and recommendations with the patient. She has been scheduled to return to the [facility] for MR biopsy on 12/29 at 7:00 AM. This facility will contact the referring clinician's office for an order. Electronically signed by: Ritika Hooks MD Francy Estrada OPHTHALMIC MEDICAL TECHNOLOGIST IMG MAMMO PROCEDURES Final Result * Screening Mammogram Bilateral W Jose D (05/30/2024 11:09 AM CDT) Anatomical Region Laterality Modality Breast Bilateral Mammography Narrative 05/30/2024 11:41 AM CDT Mammogram Technique: Bilateral Digital Breast Tomosynthesis, Bilateral C-view 2D Screening mammogram. Views obtained: bilateral craniocaudal and bilateral mediolateral oblique. Computer Aided Detection was performed. Mammogram Findings: The present examination has been compared to prior imaging studies performed at [facility] on 07/20/2022, 05/28/2023 and 06/03/2023. The breasts are almost entirely fatty. There are post breast conservation therapy changes in the right breast. There is no suspicious abnormality in either breast. Impression: There is no mammographic evidence of malignancy. Annual screening mammography is recommended. OVERALL FINAL ASSESSMENT: BI-RADS CATEGORY 2: Benign. Procedure Note Anna Valente MD - 05/30/2024 Mammogram Technique: Bilateral Digital Breast Tomosynthesis, Bilateral C-view 2D Screening mammogram. Views obtained: bilateral craniocaudal and bilateral mediolateral oblique. Computer Aided Detection was performed. Mammogram Findings: The present examination has been compared to prior imaging studies performed at [facility] on 07/20/2022, 05/28/2023 and 06/03/2023. The breasts are almost entirely fatty. There are post breast conservation therapy changes in the right breast. There is no suspicious abnormality in either breast. Impression: There is no mammographic evidence of malignancy. Annual screening mammography is recommended. OVERALL FINAL ASSESSMENT: BI-RADS CATEGORY 2: Benign. 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
--- OUTSIDE RECORDS SUMMARY | 2025-03-06 19:48 | XMS_ITS | Encounter Summary ---
Author Organization [facility] Address [address] [place] [address] Care Team Providers Care Protocol Officer Name Role Phone Fred Dean MD Primary Care Provider [phone] Reason for Visit * Reason Onset Date Comments MEDICATION REFILL 05/18/2018 Med Question 05/18/2018 Encounter Details Date Type Department Care Team (Late st Contact Info) Description 05/18/2018 Telephone [facility] [address] [place] [address] Latasha Whitehead MD [address] [id number] MEDICATION REFILL; Med Question Social History Tobacco Use Types Packs/Day Years Used Date Smoking Tobacco: Never Smokeless Tobacco: Never Alcohol Use Standard Drinks/Week Comments Yes 0 (1 standard drink = 0.6 oz pur e alcohol) Comments Unknown Sex and Gender Information Value Date Recorded Sex Assigned at Not on file 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 Can you let Hafsa know? * Telephone Encounter - Olga Deluca RN - 05/18/2018 10:09 AM CDT Telephone call to [facility]. Informed pt is menopausal. [facility] states [facility] does not dispenseAddyi [...] is patient is pre or post menopausal. [facility] callback# [phone] documented in this encounter Plan of Treatment Not on file documented as of this encounter Visit Diagnoses Not on filedocumented in this encounter Care Teams Protocol Officer Relationship Specialty Start Date End Date Fred Dean MD [address] [place] [id number] PCP - General 10/09/08 documented as of this encounter
--- OUTSIDE RECORDS SUMMARY | 2025-03-06 19:48 | XMS_ITS | Encounter Summary ---
Author Organization [facility] Address [address] [place] [address] Care Team Providers Care Solvent Recoverer Name Role Phone Anna Dean MD Primary Care Provider + Fred Dean MD Primary Care Provider [phone] Nora Case MD Primary Care Provider Anna Dean MD Primary Care Provider + Fred Dean MD Primary Care Provider [phone] Anna Dean MD Primary Care Provider + Fred Dean MD Primary Care Provider [phone] Anna Dean MD Primary Care Provider + Fred Dean MD Primary Care Provider [phone] Anna Dean MD Primary Care Provider + Anna Dean MD Primary Care Provider + Anna Dean MD Primary Care Provider + Fred Dean MD Primary Care Provider [phone] Anna Dean MD Primary Care Provider + Anna Dean MD Primary Care Provider + Fred Dean MD Primary Care Provider +[phone] Anna Dean MD Primary Care Provider + Fred Dean MD Primary Care Provider +[phone] Anna Dean MD Primary Care Provider + Italo Tapia MD Unavailable [phone] Encounter Details Date Type Department Care Team (Late st Contact Info) Description 02/08/2017 Orders Only [facility] ProviderJeronimo MD [address] [place] [id number] Social History Tobacco Use Types Packs/Day Years Used Date Smoking Tobacco: Never Assessed Comments Unknown Sex and Gender Information Value Date Recorded Sex Assigned at Not on file 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 Historical Provider [facility] DAHLIA GRANGER Final Result documented in this encounter Visit Diagnoses Not on filedocumented in this encounter Additional Health Concerns Infection Onset Date Last Indicated Resolved Time COVID: Suspected 10/17/2020 10/17/2020 10/17/2020 10:28 PM GRIDDLE ATTENDANT Respiratory Infection (CONSTANTINO), contact + droplet Comment:Automatically added due to negative COVID-19 result. 10/17/2020 10/17/2020 10/31/2020 3:0 7 AM GRIDDLE ATTENDANT documented as of this encounter Care Teams Solvent Recoverer Relationship Specialty Start Date End Date Anna Dean MD PCP - General 02/02/17 03/11/17 Fred Dean MD PCP - General 03/12/17 03/12/17 Nora Case MD [address] [place] [address] [address] [place] [address] PCP - General 03/13/17 04/27/17 Anna Dean MD PCP - General 04/28/17 04/29/17 Fred Dean MD PCP - General 04/30/17 04/30/17 Anna Dean MD PCP - General 05/01/17 05/06/17 Fred Dean MD PCP - General 05/07/17 05/27/17 Anna Dean MD PCP - General 05/28/17 05/30/17 Fred Dean MD PCP - General 05/31/17 05/31/17 Anna Dean MD PCP - General 06/02/17 06/02/17 Anna Dean MD PCP - General 06/01/17 06/01/17 Anna Dean MD PCP - General 06/03/17 06/15/17 Fred Dean MD PCP - General 06/16/17 07/27/17 Anna Dean MD PCP - General 07/28/17 08/09/17 Anna Dean MD PCP - General 08/10/17 08/22/17 Fred Dean MD PCP - General 08/23/17 09/02/17 Anna Dean MD PCP - General 09/03/17 10/27/17 Fred Dean MD PCP - General 10/28/17 01/26/18 Anna Dean MD PCP - General 01/27/18 Italo Tapia MD [address] [place] [address] Screw Machine Tender Obstetrics and Gynecology 11/19/21 documented as of this encounter
--- OUTSIDE RECORDS SUMMARY | 2025-03-06 19:48 | XMS_ITS | Encounter Summary ---
Author Organization [facility] Address [address] [place] [address] Care Team Providers Care Engine Repairer Production Name Role Phone Anna Dean MD Primary Care Provider + Italo Tapia MD Unavailable [phone] Encounter Details Date Type Department Care Team (Late st Contact Info) Description 07/29/2021 Telephone [facility] Radiology at [facility] [address] [place] [address] Mer Conway RDMS Social History Tobacco Use Types Packs/Day Years Used Date Smoking Tobacco: Never Smokeless Tobacco: Never Alcohol Use Standard Drinks/Week Comments Yes 1 (1 standard drink = 0.6 oz pur e alcohol) socially Comments No Sex and Gender Information Value Date Recorded Sex Assigned at Not on file 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
--- OUTSIDE RECORDS SUMMARY | 2025-03-06 19:48 | XMS_ITS | Referral Summary ---
Author Organization [facility] Address [address] [place] [address] Care Team Providers Care Pipe Changer Name Role Phone Anna Dean MD Primary Care Provider + Italo Tapia MD Unavailable [phone] Encounters Date Type Department Care Team Description 03/02/2025 10:[address] 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 Endocrinology Metabolism and Lipid [address] 13th [place] [address] [place] [address] Sophy Mcmillan MD Dexa Axial Skeleton Bone Density 1 or 2 Site 02/02/2025 Results Follow-Up [facility] Endocrinology Metabolism and Lipid [address] 13th [place] [address] [place] [address] Sophy Mcmillan MD Vitamin D 25 hydroxy, T4, free, TSH, Comprehensive metabolic panel 01/30/2025 11:[address] 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 Endocrinology Metabolism and Lipid [address] 13th [place] [address] [place] [address] Maddie Castro RN Osteopenia, unspecified location (Primary Dx); assisted (current) use of aromatase inhibitors 01/30/2025 10:40 AM CDT Office Visit 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 Surgery [address] [place] [phone] Francy Estrada NP 01/01/2025 Results Follow-Up [facility] Surgery [address] [place] [phone] Francy Estrada NP Jose D Post Clip Placement Right 01/01/2025 Results Follow-Up [facility] Surgery [address] [place] [phone] Francy Estrada NP MRI Guided Breast Biopsy Right, Surgical pathology 01/01/[address] [facility] Surgery [address] [place] [phone] Francy Estrada NP 12/29/2024 8:35 AM CDT - 12/29/2024 11:59 PM CDT Hospital Encounter [facility] Advanced Medicine Breast [facility] ([facility]) [address] [place] [address] Abnormal MRI, breast Discharge Disposition: Discharge to home or self care 12/29/2024 6:05 AM CDT - 12/29/2024 11:59 PM CDT Hospital Encounter [facility] [address] [place] [phone] Abnormal MRI, breast Discharge Disposition: Discharge to home or self care 12/25/2024 12:00 PM CDT Office Visit [facility] Orthopaedic Surgery [address] [facility] [address] [facility] Medical Office Building [address] [place] [address] Noah Ray MD Pain in both knees, unspecified chronicity (Primary Dx); Primary osteoarthritis of both knees 12/24/2024 3:30 PM CDT Office Visit [facility] Medical [facility] Care at [address] [address] Sonya Corona NP Abdominal pain (Primary Dx) 12/14/2024 Results Follow-Up [facility] Surgery [facility] [address] [place] [address] Francy Estrada NP US Breast Right Limited 12/14/[address] [facility] Surgery [address] [place] [address] [address] [place] [address] Francy Estrada NP Abnormal MRI, breast (Primary Dx) 12/13/2024 1:00 PM VOICE OVER ARTIST - 12/13/2024 11:59 PM VOICE OVER ARTIST Hospital Encounter [facility] Breast Imaging [place] [facility] ([facility]) [address] [place] [phone] Abnormal MRI, breast Discharge Disposition: Discharge to home or self care from Last 3 Months Allergies Active Allergy Reactions Criticality Noted Date [...] (10/20/2022): Added automatically from request for surgery [id number] Enlarged uterus 07/24/2022 Postcoital bleeding 07/24/2022 Thyroid nodule 08/02/2020 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 assisted (current) use of aromatase inhibitors 12/06/2018 Assessment & Plan (11/28/2019 2:46 PM VOICE OVER ARTIST): -leading to bone loss and increasing risk of fractures -management as above Assessment & Plan (12/06/2018 3:17 PM VOICE OVER ARTIST): Resulting in bone loss with osteopenia on DEXA. Plan to discontinue in 2023. Chest pain 11/07/2018 Dyspnea on exertion 11/07/2018 Palpitations 11/07/2018 PVC (premature ventricular contraction) 11/07/19 19 Spinal stenosis, lumbar trever on, with neurogenic claudication 10/25/2018 Overview (10/25/2018): Added automatically from request for surgery [id number] Lumbar radiculopathy 10/25/2018 Overview (10/25/2018): Added automatically from request for surgery [id number] History of breast cancer in adulthood 04/22/2018 Osteoarthritis 11/04/2016 Essential (primary) hypertension 11/04/2016 Heartburn 11/04/2016 Hot flash due to medication 12/18/2015 Encounter for antineoplastic immunotherapy 11/21 Malignant neoplasm of female breast 04/19/2014 Mass of breast 03/13/2014 Encounter for preventive health examination 09/10 Lower back injury 09/26/2009 Immunizations Immunization Administration Dates Next Due Hep A, Adult 06/29/2019 Influenza, Quadrivalent, Rec ombinant, Egg Free, Preservative Free, Intramuscular 06/29/2019 Influenza, Quadrivalent, Spl it, Intramuscular 08/16/2017,07/06/2016,07/12/2015 Influenza, Quadrivalent, Spl it, Preservative Free, Intramuscular 06/17/2020,07/27/2018 Sars-CoV-2, Unspecified 12/13/2020 Tdap 04/28/2018 ZOSTER Recombinant 11/19/2019,08/04/2019 Social History Tobacco Use Types Packs/Day Years [...] on file Legal Sex Female 3:47 AM VOICE OVER ARTIST Gender Identity Not on file Sexual Orientation [...] 01/30/2025 10:27 AM CDT Plan of Treatment Not on file Medical Devices Implanted Type Area Hook And Eye Sewing Machine Operator Device Identifier Shelf Expiration Date Model / Serial / Lot Allosource 1-4mm Freeze Dried Crushed Graft 30ml Bone Cancellous [id number] - Sna - [id number] Implanted:Qty : 1 on 12/08/2022 by Sixto Allan MD at [facility] Bone N/A: Spine Lumbar Allosource 10/11/2025 [id number] / NA / [id number] Description:Implant pause pe rformed. Allosource 1-4mm Freeze Dried Crushed Graft 30ml Bone Cancellous [id number] - Sna - [id number] Implanted:Qty : 1 on 12/08/2022 by Sixto Allan MD at [facility] Bone N/A: Spine Lumbar Allosource 10/20/2025 [id number] / NA / [id number] Description:Implant pause pe rformed. Allosource 1-4mm Freeze Dried Crushed Graft 30ml Bone Cancellous [id number] - Sna - [id number] Implanted:Qty : 1 on 12/08/2022 by Sixto Allan MD at [facility] Bone N/A: Spine Lumbar Allosource 10/20/2025 [id number] / NA / [id number] Description:Implant pause pe rformed. Allosource 1-4mm Freeze Dried Crushed Graft 30ml Bone Cancellous [id number] - Sna - [id number] Implanted:Qty : 1 on 12/08/2022 by Sixto Allan MD at [facility] Bone N/A: Spine Lumbar Allosource 07/19/2026 [id number] / NA / [id number] Description:Implant pause pe rformed. Medtronic Inc Kit Graft Bone Sponge Xlg Infuse 8cc Granules [id number] - Sna - [id number] Implanted:Qty : 1 on 12/08/2022 by Sixto Allan MD at [facility] Other - see comments N/A: Spine Lumbar Medtronic Inc 02/08/2024 [id number] / NA / [id number] Description:Implant pause pe rformed. Globus Medical Creo Thread Spinal Cap Locking Nonsterile 1119.0010 - Sna - [id number] Implanted:Qty : 11 on 12/08/2022 by Sixto Allan MD at [facility] Other - see comments N/A: Spine Lumbar [employer] 1119.0010 / NA / Globus Creo 125 Straight Nadeem Implanted:Qty : 1 on 12/08/2022 by Sixto Allan MD at [facility] Other - see comments N/A: Spine Lumbar GLOBUS 1119.5125 / NA / Gl[employer] Creo 5.5mm 125mm Curve Nadeem Spinal Titanium 1119.7125 - Sna - [id number] Implanted:Qty : 1 on 12/08/2022 by Sixto Allan MD at [facility] Other - see comments N/A: Spine Lumbar [employer] 1119.7125 / NA / Globus Creo Nadeem 5.5 X 150 Implanted:Qty : 1 on 12/08/2022 by Sixto Allan MD at [facility] Other - see comments N/A: Spine Lumbar [employer] / NA / Gl[employer] Creo Od6.5 Mm L45 Mm Thread Polyaxial Spine Screw Bone Titanium 5146.1647 - Sna - [id number] Implanted:Qty : 2 on 12/08/2022 by Sixto Allan MD at [facility] Screw N/A: Spine Lumbar [employer] 5146.1647 / NA / [employer] Creo Od6.5 Mm L50 Mm Thread Polyaxial Spine Screw Bone Titanium 5146.1652 - Sna - [id number] Implanted:Qty : 4 on 12/08/2022 by Sixto Allan MD at [facility] Screw N/A: Spine Lumbar [employer] 5146.1652 / NA / [employer] Creo Od5.5 Mm L50 Mm Thread Polyaxial Spine Screw Bone Titanium 5146.1552 - Sna - [id number] Implanted:Qty : 1 on 12/08/2022 by Sixto Allan MD at [facility] Screw N/A: Spine Lumbar [employer] 5146.1552 / NA / [employer] Creo Od5.5 Mm L45 Mm Thread Polyaxial Spine Screw Bone Titanium 5146.1547 - Sna - [id number] Implanted:Qty : 4 on 12/08/2022 by Sixto Allan MD at [facility] Screw N/A: Spine Lumbar [employer] 5146.1547 / NA / [employer] Creo Od8.5 Mm L80 Mm Thread Polyaxial Spine Screw Bone Titanium 5146.1882 - Sna - [id number] Implanted:Qty : 1 on 12/08/2022 by Sixto Allan MD at [facility] Screw N/A: Spine Lumbar [employer] 5146.1882 / NA / Mandible Fx,Wire Mandible Orthocon Inc Os-201 Hemasorb Spatula Wax 2gm Bone Sterile - [id number] Implanted:Qty : 1 on 11/14/2018 by Keny Davis MD at [facility] N/A: Spine Lumbar Orthocon Inc OS-201 / / Hologic Limited Partnership Eviva 13cm Identifier Biopsy Site [id number] - [id number] Implanted:Qty : 1 on 06/07/2023 by Socorro Vee MD at [facility] Right: Breast [employer] [id number] 02/16/2024 SMARK-EVIV A-13 / / [id number] Hologic Limited Partnership [facility] Trimark Second Marker Breast Biopsy Disposable Trimark Td 2s 13-Mr - [id number] Implanted:Qty : 1 on 12/29/2024 at [facility] Right: Breast [employer] [id number] 01/19/2026 TRIMARK TD 2S 13-MR / / [id number] Procedures Procedure Name Priority Date/Time Associated Diagnosis Comments COMPREHENSIVE METABOLIC PANEL Routine 01/30/2025 11:30 AM CDT Osteopenia, unspecified location TSH Routine 01/30/2025 11:30 AM CDT Hypothyroidism due to Pual thyroiditis T4, FREE Routine 01/30/2025 11:30 AM CDT 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 VITAMIN D 25 HYDROXY Routine 01/30/2025 11:30 AM CDT Osteopenia, unspecified location DEXA AXIAL SKELETON BONE DENSITY 1 OR MORE SITES Schedule Routine, Read Routine (OP Routine) 01/26/2025 10:09 AM CDT assisted (current) use of aromatase inhibitors Osteopenia, unspecified location JOSE D POST CLIP PLACEMENT RIGHT Schedule Routine, Read Routine (OP Routine) 12/29/2024 8:44 AM CDT Abnormal MRI, breast MRI GUIDED BREAST BIOPSY RIGHT Schedule Routine, Read Routine (OP Routine) 12/29/2024 8:20 AM CDT Abnormal MRI, breast SURGICAL PATHOLOGY Routine 12/29/2024 7: 54 AM CDT Abnormal MRI, breast RI ARTHROCENTESIS ASPIR&/INJ MAJOR JT/BURSA W/O US Routine 12/25/2024 12:00 PM CDT Pain in both knees, unspecified chronicity Primary osteoarthritis of both knees US BREAST RIGHT LIMITED Schedule Routine, Read Routine (OP Routine) 12/13/2024 1:55 PM VOICE OVER ARTIST Abnormal MRI, breast SCREENING MAMMOGRAM BILATERAL W JOSE D Schedule Routine, Read Routine (OP Routine) 05/30/2024 11:09 AM CDT History of breast cancer in adulthood from Last 3 Months or Most Recently Relevant to Health Maintenance Results * Vitamin D 25 hydroxy (01/30/2025 11:30 AM CDT) [facility] Vitamin D 33.8 20.0 - 100.0 ng/mL [facility] Comment: VITAMIN D DEFICIENCY = LESS THAN or EQUAL TO 20 ng/mL VITAMIN D INSUFFICIENCY = 21 - 29 ng/mL VITAMIN D SUFFICIENT = 30-100 ng/mL Blood 01/30/2025 11:3 0 AM CDT 01/30/2025 12:49 PM CDT us Sophy Mcmillan MD LAB BLOOD ORDERABLES Final Resu lt Performing Organization Address [facility] Co de Phone Number [facility] CORE [facility] * TSH (01/30/2025 11:30 AM CDT) [facility] TSH (Thyrotropin) 3.23 0.27 - 4.20 uIU/mL [facility] Blood 01/30/2025 11:3 0 AM CDT 01/30/2025 12:49 PM CDT us Sophy Mcmillan MD LAB BLOOD ORDERABLES Final Resu lt Performing Organization Address [facility] Co de Phone Number [facility] CORE [facility] * T4, free (01/30/2025 11:30 AM CDT) [facility] Free T4 1.41 0.80 - 1.80 ng/dL [facility] Blood 01/30/2025 11:3 0 AM CDT 01/30/2025 12:49 PM CDT Result [facility] us Sophy Mcmillan MD LAB BLOOD ORDERABLES Final Resu lt Performing Organization Address [facility] Co de Phone Number [facility] CORE [facility] * Comprehensive [...] MD LAB BLOOD ORDERABLES Final Resu lt [facility] CORE [facility] * Dexa Axial Skeleton Bone Density 1 or 2 Site (01/26/2025 10:09 AM CDT) Anatomical Region Laterality Modality Body N/A Radiographic Kalani ging Narrative 01/26/2025 11:48 AM CDT Patient Name: Hafsa Brooks Date of : 1970 Date of scan: 01/26/2025 Bone mineral density was performed on a Hologic Discovery Densitometer. Based on machine cross-calibration and [...] mineral density scan were prepared by Emma Calderon(Vanessa)(Moni)(BD) CBDT who is accredited by the International Society of Clinical Densitometry. The overall patient assessment and scan interpretation were performed by Cinthia Huizar M.D. who is certified by the International Society of Clinical Densitometry. [id number] us Sophy Mcmillan MD IMG DXA PROCEDURES [...] by: Damaris Andrade M.D. Francy Estrada NP IMG MAMMO PROCEDURES Edite d Result - Final [...] will be discussed with the patient by [facility] or referring provider staff [...] signed by: Damaris Andrade M.D. Francy Estrada CLEANING SPECIALIST IMG MRI PROCEDURES Edited Result - Final * [...] Located near prior surgical site. Narrative PATHOLOGY [facility] - 01/01/2025 9:00 AM CDT EPIC results best viewed via link to PDF [facility] [place] [address] Note to Patients: This report may contain [...] Gender: F : 1970 (Age: 54) Address: [address] [place] [phone] Hospital #: [id number] Taken:12/29/2024 Received:12/29/2024 Reported: 01/01/2025 Patient Type: [facility] Ancillary Service: UNKNOWN Location: Physician(s): MD Francy Werner AGNP Michelle P. Mulligan, M.D. Diagnosis: Breast, right, lower inner quadrant, MRI guided needle core biopsy - Breast tissue with atrophic and sclerotic lobules and fat necrosis, consistent with prior treatment - Focal usual ductal hyperplasia - No carcinoma identified /12/31/2024 16:44 By this signature, I attest that the above diagnosis is based upon my personal examination of the slides(and/or other material indicated in the diagnosis). Jesus Tran M.D. Report Electronically Reviewed and Signed Out By Jesus Tran M.D. 01/01/2025 09:00:13 Brian Duron M.D. [...] Surgical Pathology and Flow Cytometry Departments at [facility] as part of an ongoing coding quality coordinator program and in compliance with federally mandated [...] Surgical Pathology and Flow Cytometry Departments of [facility]. It has not been cleared or approved by the U. S. Food and Drug Administration. IMAGES AND SCANNED DOCUMENTS, IF INCLUDED, ONLY VIEWABLE IN PDF VERSION OF REPORT us Francy Estrada NP LAB PATHOLOGY ORDERABLES F inal Result PATHOLOGY [facility] 3rd Floor [place], [place] [phone] * RI ARTHROCENTESIS ASPIR&/INJ MAJOR JT/BURSA W/O US (12/25/2024 12:00 PM CDT) Narrative Noah Ray MD - 12/25/2024 12:00 PM CDT Noah Ray MD 12/25/2024 2:16 PM Large Joint Injection: bilateral knee Performed by: Noah Ray MD Authorized by: Noah Rya MD Large Joint Injection/Aspiration: Consent Given by: [...] US Breast Right Limited (12/13/2024 1:55 PM VOICE OVER ARTIST) Anatomical Region Laterality Modality Breast Right Ultrasound 12/13/2024 2:14 PM VOICE OVER ARTIST Impressions 12/13/2024 2:14 PM VOICE OVER ARTIST By right 5:00 small hypoechoic mass with [...] guided biopsy of the right lower inner bpkt-hu-xeit small enhancing masses. Dr. Hooksdiscussed the above findings and recommendations with the patient. She has been scheduled to return to the [facility] for MR biopsy on 12/29 at 7:00 AM. This facility will contact the referring clinician's office for an order. Electronically signed by: Ritika Hooks MD Narrative 12/13/2024 2:14 PM VOICE OVER ARTIST EXAMINATION: RIGHT BREAST ULTRASOUND HISTORY: MR directed [...] RIGHT breast was performed by a trained bulldogger and by Dr. Hooks. ULTRASOUND FINDINGS: In [...] RIGHT breast was performed by a trained bulldogger and by Dr. Hooks. ULTRASOUND FINDINGS: In [...] guided biopsy of the right lower inner lwsu-vy-cxpv small enhancing masses. Dr. Hooksdiscussed the above findings and recommendations with the patient. She has been scheduled to return to the [facility] for MR biopsy on 12/29 at 7:00 AM. This facility will contact the referring clinician's office for an order. Electronically signed by: Ritika Hooks MD us Francy Estrada NP IMG MAMMO PROCEDURES Final Result * Screening [...] compared to prior imaging studies performed at [facility] on 07/20/2022, 05/28/2023 and 06/03/2023. The breasts [...] compared to prior imaging studies performed at [facility] on 07/20/2022, 05/28/2023 and 06/03/2023. The breasts are almost entirely fatty. There are post breast conservation therapy changes in the right breast. There is no suspicious abnormality in either breast. Impression: There is no mammographic evidence of malignancy. Annual screening mammography is recommended. OVERALL FINAL ASSESSMENT: BI-RADS CATEGORY 2: Benign. 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
[2025-03-06] MEDS: PIPERACILLIN/TAZ 4.5G/NS 100ML 4.5 GM/100 ML BAG IVPB (19:55)
[2025-03-06] MEDS: LACTATED RINGERS 1,000 ML 999 ML IV CONT (19:56)
[2025-03-06 19:57] VITALS: BP 160/96; PULSE 66; RESP 12; O2SAT 98
[2025-03-06 20:44] VITALS: BP 169/93; PULSE 65; RESP 20; O2SAT 100
[2025-03-06 22:54] VITALS: BMI 31.4
[2025-03-06 22:59] VITALS: BP 156/86; PULSE 67; RESP 20; TEMP 36.4; O2SAT 97
[2025-03-06] MEDS: ATORVASTATIN 10 MG TABLET PO (22:59)
[2025-03-06] MEDS: LACTATED RINGERS 1,000 ML 125 ML IV CONT (22:59)
[2025-03-06] MEDS: SPIRONOLACTONE 50 MG TABLET 100 MG PO (22:59)
[2025-03-06] MEDS: busPIRone HCL 5 MG TABLET PO (22:59)
--- NOTE | 2025-03-06 23:08 | ADMGEN ---
This patient, Hafsa Brooks, was admitted to Medical Room 248-01. Patient/family oriented to hospital policies and general routines including ID bracelet, bed and alarms, visiting hours, pain management, procedures, bathroom and other care routines, personal items, smoking policy, room service/diet, and visiting hours. Information on how to activate the Rapid Response Team has been discussed. Patient/Family are encouraged to report perceived risks to care and to ask questions if they do not understand what they are told or what they should do.
[2025-03-07] MEDS: MORPHINE SULFATE (*CRX) 4 MG/ML INJ IV PUSH ×5 (03:15→21:11)
[2025-03-07] MEDS: ONDANSETRON INJ 4 MG/2 ML VIAL IV PUSH ×5 (03:16→21:11)
[2025-03-07 05:02] VITALS: BP 130/71; PULSE 60; RESP 20; TEMP 36.2; O2SAT 100
--- NOTE | 2025-03-07 08:08 | P.HP_ITS ---
H&P: HPI History of Present Illness Date/Time: 03/07/25 1100 Chief Complaint: Patient is a 55-year-old female presents to the ED on 03/06 for upper abdominal pain. Before coming to the emergency department patient went to her PCP office with the same symptoms and obtained an outside CT yielding diverticulitis multiple small contained perforations. A little over 2 weeks ago patient was placed on a 10 day course of Augmentin which mildly helped alleviate the pain but overall did not take it away. In the ED: She was given morphine Zofran as well as a fluid bolus. Started on Zosyn given her multiple antibiotic allergies. Laboratory studies were obtained including blood cultures, CBC, CMP. Outside hospital imaging studies were reviewed that do show perforated diverticulitis although contained with no free air. Multiple segment in the sigmoid colon. Workup shows no leukocytosis or anemia. Normal kidney and hepatic function panel. Re-evaluation shows improvement in pain control and symptom control. Patient started on maintenance IV fluids. General surgery consulted and recs for making the patient NPO with sips and continued antibiotics including Zosyn and he will evaluate the patient on inpatient basis. Pt states that she feels better today but is still having pain in her LUQ. Discussed the plan with bowel rest, IV pain meds, and IV abx. Pt agreeable. Review of Systems Review of Systems: All systems reviewed & are unremarkable except as noted in HPI and below PMFSH Past Medical History Medical History Abdominal pain, LLQ Hyperlipidemia Anxiety and depression lost spouse 2021 Urticaria Arthritis hip & jaw Hypertension Breast cancer (~2013) radiation & chemotherapy Serous otitis media of left ear with rupture of tympanic membrane Abdominal bloating Squamous cell skin cancer Overweight (BMI 25.0-29.9) Allergic rhinitis Diverticulosis Normal colonoscopy 2019 Malignant neoplasm of unspecified site of right female breast Residual hemorrhoidal skin tags Surgical History Surgical History H/O right breast biopsy (~06/11/23) Benign H/O spinal fusion 2021 L2 - S1 anchored to tailbone History of lumbar surgery (11/14/18) decompression of L% History of lumpectomy of right breast (03/27/14) 3 lymph nodes removed History of endometrial ablation (04/10/08) bernabe Turner endometrial ablation--heavy periods History of cholecystectomy (~1999) History of bilateral salpingo-oophorectomy (04/25/15) elective--hx of breast cancer Family History Family History Father Hypertension Mother Hypertension Other , spouse Suicide Social History Social History Smoking status: Never smoker Second hand tobacco smoke exposure: No Alcohol intake: current Drinks per week: 1 Substance use: never Substance use type: does not use Do You Feel Safe in your Home?: Yes Lack of Transportation: No Lack of Food: Never True Current Housing: I Have Housing Concerned About Future Housing: No Difficulty Paying Gas/Electric Bills: No Difficulty Paying for Meds: No Currently Unemployed: No Education: Bachelor's Degree Difficulty w/ Childcare or Family Care: No Living arrangements: with family Additional living arrangements comments: lost spouse in 2021 Occupation/Education: retired 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 Gender identity (if verbalized by the patient): Female Sexual Orientation (if Verbalized by the Patient): Straight or Heterosexual Spiritual care concerns: No Meds Home Medications and Allergies Home Medications ?Medication ?Instructions ?Recorded ?Confirmed ?Type calcium 500 mg (as 3 tablet PO DAILY 08/11/22 03/06/25 History carbonate)-vitamin D3 15 mcg (600 unit) tablet (Os-Dylon 500 + D3) levocetirizine 5 mg tablet (Xyzal) 5 mg PO HS 10/25/22 03/06/25 History folic acid 1 mg tablet 1 mg PO DAILY 02/09/24 03/06/25 History ttryduow-jeb-eyfuq ac 400 tablet PO DAILY 08/22/24 03/06/25 History mcg-calcium carb 500 mg-vit K1 20 mcg tablet alprazolam 0.5 mg tablet 0.5 mg PO TID PRN anxiety #60 tabs 10/19/24 03/06/25 Rx atorvastatin 10 mg tablet 10 mg PO DAILY #90 tabs 10/19/24 03/06/25 Rx buspirone 5 mg tablet 5 mg PO TID #270 tabs 10/19/24 03/06/25 Rx levothyroxine 88 mcg tablet 88 mcg PO DAILY #90 tabs 10/19/24 03/06/25 Rx omeprazole 40 mg capsule,delayed See Rx Instructions .Route 10/19/24 03/06/25 Rx release .COMPLEX #90 caps magnesium 250 mg tablet 250 mg PO DAILY 03/06/25 03/06/25 History Allergies Allergy/AdvReac Type Severity Reaction Status Date / Time Sulfa (Sulfonamide Allergy Intermediate face Verified 03/06/25 18:37 Antibiotics) swelled up--hives--throat swelled inside metronidazole Allergy Unknown Rash Verified 03/06/25 18:37 levofloxacin (From Levaquin) AdvReac Severe tendinopathy, Verified 03/06/25 18:37 joint pain and swelling sertraline AdvReac Severe Diarrhea Verified 03/06/25 18:37 omalizumab (From Xolair) AdvReac Intermediate high blood Verified 03/06/25 18:37 pressure doxycycline AdvReac Mild esophageal Verified 03/06/25 18:37 erosion. No allergy. sertraline AdvReac Intermediate Diarrhea Uncoded 03/06/25 18:37 Vital Signs Vital Signs - 24 hr 03/06/25 18:15 03/06/25 18:32 03/06/25 19:57 Temperature 98.2 F Pulse Rate 83 68 66 Respiratory Rate 16 20 12 Blood Pressure 168/87 H 144/92 H 160/96 H Pulse Oximetry 100 100 98 Oxygen Delivery Room Air Room Air 03/06/25 20:44 03/06/25 22:59 03/06/25 23:00 Temperature 97.5 F L Pulse Rate 65 67 Respiratory Rate 20 20 Blood Pressure 169/93 H 156/86 H Pulse Oximetry 100 97 Oxygen Delivery Room Air 03/07/25 05:02 Temperature 97.2 F L Pulse Rate 60 Respiratory Rate 20 Blood Pressure 130/71 Pulse Oximetry 100 Oxygen Delivery Exam Narrative: Pt resting lying in bed. Const: General: no acute distress HENMT: Face/Nose/Sinus: Normal nares present Mouth: Yes moist mucous me mbranes Eyes: General: appearance normal, both eyes and all related structures Sclera: sclerae normal Pupils: Equal, round and reactive pupils present EOM: EOMs intact bilaterally Neck: Neck: supple and no JVD Carotids: no bruits Resp: Effort & Inspection: normal respiratory effort Auscultation: clear to auscultation bilaterally Cardio: Rate: regular rate Rhythm: regular rhythm GI: Inspection: non-distended GI Palp: Yes Soft to palpation and Yes Tenderness to palpation present (GI) (LUQ extending to the mid upper abd) Skin: General skin exam: normal color and no rashes or lesions noted Wounds: no wounds Neuro: Speech: normal speech Motor exam (neuro): Normal motor muscle tone present throughout Sensory Exam: normal sensation Extrem: General: normal to inspection Psych: Mental Status: mental status grossly normal Affect: normal affect H&P: Results Labs Labs: Short CBC 03/06/25 Range/Units 18:48 WBC 9.4 (4.5-10.0) K/mm3 Hgb 13.0 (12.0-15.0) g/dL Hct 39.6 (37.0-47.0) % Plt Count 402 H (150-375) k/mm3 BMP 03/06/25 18:48 Sodium 140 Potassium 3.4 Chloride 103 Carbon Dioxide 25 BUN 14 Creatinine 0.75 Glucose 98 Calcium 9.1 Liver Function 03/06/25 Range/Units 18:48 Total Bilirubin 0.6 (0.2-1.3) mg/dL AST 32 (14-36) U/L ALT 36 H (6-35) U/L Alkaline Phosphatase 87 (38-126) U/L Albumin 4.8 (3.5-5.1) g/dL Assessment and Plan Assessment and plan (1) Perforation of sigmoid colon due to diverticulitis: Code(s): K57.20 - Diverticulitis of large intestine with perforation and abscess without bleeding Status: Acute Assessment and Plan: -Continue Zosyn q6hr -Pain control: Morphine IV, acetaminophen -Continue to trend labs, blood cultures pending -NPO with sips -Gen surg following, appreciate their recs. Per their note today: No fever or abnormal WBC count. Plan to continue conservative treatment with IV antibiotics and bowel rest. Continue to monitor for signs of infection. Quality VTE Prophylaxis VTE prophylaxis: mechanical ordered Hospitalist [facility] Advance Care Plan I have confirmed that the patient's Advanced Care Plan is present, code status is documented, or surrogate decision maker is listed in patient medical record.: Yes Medication Reconciliation I have utilized all available resources to obtain, update and review the patients current medications (includes all prescriptions, OTC, herbals, hannah abis, and nutritional supplements).: No The patient is not eligible for med reconciliation; the patient is in a emergent medical situation where delaying treatment would jeopardize the patients health.: No
--- NOTE | 2025-03-07 09:29 | P.CONGS_ITS ---
Assessment and Plan Assessment and plan (1) Diverticulitis: Code(s): K57.92 - Diverticulitis of intestine, part unspecified, without perforation or abscess without bleeding <Elvia Hawkins PA-C - Last Filed: 03/07/25 10:38> Status: Acute <Elvia Hawkins PA-C - Last Filed: 03/07/25 10:38> (2) Perforation of sigmoid colon due to diverticulitis: Code(s): K57.20 - Diverticulitis of large intestine with perforation and abscess without bleeding <Elvia Hawkins PA-C - Last Filed: 03/07/25 10:38> Status: Acute <Elvia Hawkins PA-C - Last Filed: 03/07/25 10:38> (3) Abdominal pain, LLQ: Code(s): R10.32 - Left lower quadrant pain <Elvia Hawkins PA-C - Last Filed: 03/07/25 10:38> Status: Acute <Elvia Hawkins PA-C - Last Filed: 03/07/25 10:38> Assessment and Plan: Patient is a 55 year old female who presented to the ED with complaints of LLQ pain and abnormal outpatient CT. Upon admission, CT demonstrated a cute/subacute diverticulitis of the proximal sigmoid colon with multiple small contained perforations. No gross free air or drainable fluid. No fever or abnormal WBC count. Plan to continue conservative treatment with IV antibiotics and bowel rest. Continue to monitor for signs of infection. <Elvia Hawkins PA-C - Last Filed: 03/07/25 10:38> History of Present Illness Consult details Consult date: 03/07/25 <Elvia Hawkins PA-C - Last Filed: 03/07/25 10:38> 03/07/25 <James Crystal MD - Last Filed: 03/07/25 10:44> Narrative: Patient is a 55 y/o female with history of diverticulosis who presented to the ED with complaints of LLQ pain and abnormal outpatient CT. Patient states that her symptoms started in December for which she was seen at an outside hospital and CT did not show any acute issues. Symptoms recurred beginning of February and patient was diagnosed with diverticulitis and prescribed on a 10 day course of Augmentin, which she finished. She states that this made her feel 90% better, but that she still was having mild symptoms. Patient saw her PCP yesterday who obtained a repeat CT which showed diverticulitis with multiple small contained perforations. She then was sent to the ED for further evaluation. Patient reports some nausea after eating, with last meal being yesterday. Normal bowel movements with last BM yesterday morning. She feels pain is now extending into RLQ. Abdominal surgical history includes cholecystectomy and removal of both ovaries. Last colonoscopy . No fevers or abnormal WBC count. Currently NPO with continuous IV fluids. <Elvia Hawkins PA-C - Last Filed: 03/07/25 10:38> [facility] Past Medical History Medical History: Medical History Abdominal pain, LLQ Hyperlipidemia Anxiety and depression lost spouse 2021 Urticaria Arthritis hip & jaw Hypertension Breast cancer (~2013) radiation & chemotherapy Serous otitis media of left ear with rupture of tympanic membrane Abdominal bloating Squamous cell skin cancer Overweight (BMI 25.0-29.9) Allergic rhinitis Diverticulosis Normal colonoscopy 2019 Malignant neoplasm of unspecified site of right female breast Residual hemorrhoidal skin tags <Elvia Hawkins PA-C - Last Filed: 03/07/25 10:38> Surgical History Surgical History: Surgical History H/O right breast biopsy (~06/11/23) Benign H/O spinal fusion 2021 L2 - S1 anchored to tailbone History of lumbar surgery (11/14/18) decompression of L% History of lumpectomy of right breast (03/27/14) 3 lymph nodes removed History of endometrial ablation (04/10/08) hscope Novasure endometrial ablation--heavy periods History of cholecystectomy (~1999) History of bilateral salpingo-oophorectomy (04/25/15) elective--hx of breast cancer <Elvia Hawkins PA-C - Last Filed: 03/07/25 10:38> Family History Family History: Family History Father Hypertension Mother Hypertension Other , spouse Suicide <Elvia Hawkins PA-C - Last Filed: 03/07/25 10:38> Social History Social History: Social History Smoking status: Never smoker Second hand tobacco smoke exposure: No Alcohol intake: current Drinks per week: 1 Substance use: never Substance use type: does not use Do You Feel Safe in your Home?: Yes Lack of Transportation: No Lack of Food: Never True Current Housing: I Have Housing Concerned About Future Housing: No Difficulty Paying Gas/Electric Bills: No Difficulty Paying for Meds: No Currently Unemployed: No Education: Bachelor's Degree Difficulty w/ Childcare or Family Care: No Living arrangements: with family Additional living arrangements comments: lost spouse in 2021 Occupation/Education: retired 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 Gender identity (if verbalized by the patient): Female Sexual Orientation (if Verbalized by the Patient): Straight or Heterosexual Spiritual care concerns: No <Elvia Hawkins PA-C - Last Filed: 03/07/25 10:38> Meds Home Medications and Allergies Home medications: Home Medications ?Medication ?Instructions ?Recorded ?Confirmed ?Type calcium 500 mg (as 3 tablet PO DAILY 08/11/22 03/06/25 History carbonate)-vitamin D3 15 mcg (600 unit) tablet (Os-Dylon 500 + D3) levocetirizine 5 mg tablet (Xyzal) 5 mg PO HS 10/25/22 03/06/25 History folic acid 1 mg tablet 1 mg PO DAILY 02/09/24 03/06/25 History siyugfjv-atn-kcwwc ac 400 tablet PO DAILY 08/22/24 03/06/25 History mcg-calcium carb 500 mg-vit K1 20 mcg tablet alprazolam 0.5 mg tablet 0.5 mg PO TID PRN anxiety #60 tabs 10/19/24 03/06/25 Rx atorvastatin 10 mg tablet 10 mg PO DAILY #90 tabs 10/19/24 03/06/25 Rx buspirone 5 mg tablet 5 mg PO TID #270 tabs 10/19/24 03/06/25 Rx levothyroxine 88 mcg tablet 88 mcg PO DAILY #90 tabs 10/19/24 03/06/25 Rx omeprazole 40 mg capsule,delayed See Rx Instructions .Route 10/19/24 03/06/25 Rx release .COMPLEX #90 caps magnesium 250 mg tablet 250 mg PO DAILY 03/06/25 03/06/25 History <Elvia Hawkins PA-C - Last Filed: 03/07/25 10:38> Allergies/Adverse reactions: Allergies Allergy/AdvReac Type Severity Reaction Status Date / Time Sulfa (Sulfonamide Allergy Intermediate face Verified 03/06/25 18:37 Antibiotics) swelled up--hives--throat swelled inside metronidazole Allergy Unknown Rash Verified 03/06/25 18:37 levofloxacin (From Levaquin) AdvReac Severe tendinopathy, Verified 03/06/25 18:37 joint pain and swelling sertraline AdvReac Severe Diarrhea Verified 03/06/25 18:37 omalizumab (From Xolair) AdvReac Intermediate high blood Verified 03/06/25 18:37 pressure doxycycline AdvReac Mild esophageal Verified 03/06/25 18:37 erosion. No allergy. sertraline AdvReac Intermediate Diarrhea Uncoded 03/06/25 18:37 <Elvia Hawkins PA-C - Last Filed: 03/07/25 10:38> Vital Signs Vital Signs - 24 hr 03/06/25 18:15 03/06/25 18:32 03/06/25 19:57 Temperature 98.2 F Pulse Rate 83 68 66 Respiratory Rate 16 20 12 Blood Pressure 168/87 H 144/92 H 160/96 H Pulse Oximetry 100 100 98 Oxygen Delivery Room Air Room Air 03/06/25 20:44 03/06/25 22:59 03/06/25 23:00 Temperature 97.5 F L Pulse Rate 65 67 Respiratory Rate 20 20 Blood Pressure 169/93 H 156/86 H Pulse Oximetry 100 97 Oxygen Delivery Room Air 03/07/25 05:02 Temperature 97.2 F L Pulse Rate 60 Respiratory Rate 20 Blood Pressure 130/71 Pulse Oximetry 100 Oxygen Delivery <CORDELL Nava Last Filed: 03/07/25 10:38> Exam 2 Const: General: comfortable and no acute distress <CORDELL Nava Last Filed: 03/07/25 10:38> HENMT: Face/Nose/Sinus: Normal nares present <CORDELL Nava Last Filed: 03/07/25 10:38> Mouth: Yes moist mucous membranes <CORDELL Nava Last Filed: 03/07/25 10:38> Eyes: Pupils: Equal, round and reactive pupils present <CORDELL Nava Last Filed: 03/07/25 10:38> Resp: Effort & Inspection: normal respiratory effort <CORDELL Nava Last Filed: 03/07/25 10:38> GI: Inspection: non-distended <CORDELL Nava Last Filed: 03/07/25 10:38> GI Palp: Yes Soft to palpation and Yes Tenderness to palpation present (GI) (tenderness to LLQ and diffusely across hypogastric region) <CORDELL Nava Last Filed: 03/07/25 10:38> Skin: General skin exam: normal color and no rashes or lesions noted < CORDELL Nava Last Filed: 03/07/25 10:38> Neuro: Speech: normal speech <CORDELL Nava Last Filed: 03/07/25 10:38> Sensory Exam: normal sensation <CORDELL Nava Last Filed: 03/07/25 10:38> Results Labs Result diagrams: 03/06/25 18:48 03/06/25 18:48 <CORDELL Nava Last Filed: 03/07/25 10:38> Labs: Abnormal lab results 03/06/25 Range/Units 18:48 Plt Count 402 H (150-375) k/mm3 [place] # (Auto) 0.7 H (0.1-0.6) K/mm3 Abs Immat Gran (auto) 0.05 H (0.00-0.031) K/mm3 ALT 36 H (6-35) U/L Diabetes panel 03/06/25 Range/Units 18:48 Sodium 140 (137-145) mmol/L Potassium 3.4 (3.4-5.0) mmol/L Chloride 103 (98-107) mmol/L Carbon Dioxide 25 (22-30) mmol/L BUN 14 (7-17) mg/dL Creatinine 0.75 (0.7-1.0) mg/dL Glucose 98 (65-110) mg/dL Calcium 9.1 (8.4-10.2) mg/dL AST 32 (14-36) U/L ALT 36 H (6-35) U/L Alkaline Phosphatase 87 (38-126) U/L Total Protein 8.0 (6.3-8.2) g/dL Albumin 4.8 (3.5-5.1) g/dL Calcium panel 03/06/25 Range/Units 18:48 Calcium 9.1 (8.4-10.2) mg/dL Albumin 4.8 (3.5-5.1) g/dL Pituitary panel 03/06/25 Range/Units 18:48 Sodium 140 (137-145) mmol/L Potassium 3.4 (3.4-5.0) mmol/L Chloride 103 (98-107) mmol/L Carbon Dioxide 25 (22-30) mmol/L BUN 14 (7-17) mg/dL Creatinine 0.75 (0.7-1.0) mg/dL Glucose 98 (65-110) mg/dL Calcium 9.1 (8.4-10.2) mg/dL Adrenal panel 03/06/25 Range/Units 18:48 Sodium 140 (137-145) mmol/L Potassium 3.4 (3.4-5.0) mmol/L Chloride 103 (98-107) mmol/L Carbon Dioxide 25 (22-30) mmol/L BUN 14 (7-17) mg/dL Creatinine 0.75 (0.7-1.0) mg/dL Glucose 98 (65-110) mg/dL Calcium 9.1 (8.4-10.2) mg/dL Total Bilirubin 0.6 (0.2-1.3) mg/dL AST 32 (14-36) U/L ALT 36 H (6-35) U/L Alkaline Phosphatase 87 (38-126) U/L Total Protein 8.0 (6.3-8.2) g/dL Albumin 4.8 (3.5-5.1) g/dL All other labs normal. <Elvia Hawkins PA-C - Last Filed: 03/07/25 10:38> Attestation Supervising Provider Attestation I have personally seen and evaluated the patient today with PROJECT MANAGEMENT CONSULTANT.? I have reviewed any new relevant radiographic and laboratory results.? I have reviewed the armijo elements of the patient's current surgical or medical problems and I have personally performed a substantive portion of the care for this patient.? I personally performed the pertinent physical exam and reviewed and confirmed the patient's medicine list.? ? I have formulated the surgical care plan and I agree with the documented note above. <Elvia Hawkins PA-C - Last Filed: 03/07/25 10:38> I have personally seen and evaluated the patient today with PROJECT MANAGEMENT CONSULTANT.? I have reviewed any new relevant radiographic and laboratory results.? I have reviewed the armijo elements of the patient's current surgical or medical problems and I have personally performed a substantive portion of the care for this patient.? I personally performed the pertinent physical exam and reviewed and confirmed the patient's medicine list.? ? I have formulated the surgical care plan and I agree with the documented note above. Patient had a episode of severe pain back in December which was evaluated emergency room. At that time she had a CT scan abdomen pelvis performed as per the patient's history the CT did not show acute diverticulitis. In February which was a few weeks ago she had another episode of pain and had a CT scan done showing acute diverticulitis at the junction of the descending and sigmoid colon. She was treated as an outpatient by her primary care physician with oral antibiotics. She improved but then over last 5 days started having worsening pain again. She re-presented to the emergency room another CT scan showed what appeared to be a small micro perforation that was contained. There is no free air in the abdomen. No pelvic abscess was noted. Patient's white blood count was normal. Mild pain left lower quadrant without guarding or peritoneal signs. Today her pain is better. She still has some mild tenderness to palpation but there is no guarding or peritoneal signs. No fever. No tachycardia. She has had a prior colonoscopy within the last couple years. She stated some polyps were removed. 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 At this point she has no acute surgical abdomen needing an emergent colon resection. We will continue her on scheduled IV antibiotics (Zosyn). As I expected clinical course to improve with decreasing abdominal pain and continued to have a normal white blood cell count I would plan on probably advancing diet tomorrow to clear liquids if she is continuing to improve. Hopefully she can be managed non operatively with IV antibiotics and then a course of oral antibiotics as an outpatient and then discharged from the hospital follow-up in the office eventually to the need for another colonoscopy and then if she should be considered for an elective 1 stage sigmoid resection. Hospitalist to manage her usual home medications. She can have those with a sip of water. <James Crystal MD - Last Filed: 03/07/25 10:44>
[2025-03-07] MEDS: PIPERACILLN/TAZ 3.375GM/NS50ML 3.375 GM/50 ML BAG IVPB ×2 (10:57→17:32)
[2025-03-07] MEDS: ALPRAZolam (*CRX) 0.5 MG TABLET PO (13:09)
[2025-03-07] MEDS: busPIRone HCL 5 MG TABLET PO ×2 (13:09→17:27)
[2025-03-07 14:00] VITALS: BP 136/73; PULSE 94; RESP 12; TEMP 36.8; O2SAT 100
[2025-03-07] MEDS: LEVOTHYROXINE SODIUM 88 MCG TABLET PO (15:04)
[2025-03-07] MEDS: LACTATED RINGERS 1,000 ML 125 ML IV CONT ×2 (15:16→23:07)
[2025-03-07 21:10] VITALS: PULSE 56; RESP 16; O2SAT 99
[2025-03-07 21:13] VITALS: BP 114/70; PULSE 56; RESP 16; TEMP 36.5; O2SAT 99
[2025-03-08] MEDS: PIPERACILLN/TAZ 3.375GM/NS50ML 3.375 GM/50 ML BAG IVPB ×4 (00:35→17:10)
[2025-03-08] MEDS: MORPHINE SULFATE (*CRX) 4 MG/ML INJ IV PUSH ×4 (01:42→18:58)
[2025-03-08] MEDS: ONDANSETRON INJ 4 MG/2 ML VIAL IV PUSH ×4 (01:42→18:58)
[2025-03-08 04:27] VITALS: BP 136/80; PULSE 57; RESP 16; TEMP 36.7; O2SAT 96
[2025-03-08] MEDS: LEVOTHYROXINE SODIUM 88 MCG TABLET PO (06:05)
[2025-03-08] MEDS: ATORVASTATIN 10 MG TABLET PO (08:14)
[2025-03-08] MEDS: busPIRone HCL 5 MG TABLET PO ×3 (08:14→16:03)
[2025-03-08] MEDS: LACTATED RINGERS 1,000 ML 125 ML IV CONT ×2 (08:18→18:58)
[2025-03-08 08:33] LABS: Alanine Aminotransferase 25 U/L (6-35); Albumin Level 3.8 g/dL (3.5-5.1); Alkaline Phosphatase 67 U/L (38-126); Anion Gap 6 mmol/L (4-12); Aspartate Amino Transferase 24 U/L (14-36); Basophils Absolute Auto 0.1 K/mm3 (0.0-0.1); Bilirubin,Total 0.9 mg/dL (0.2-1.3); Blood Urea Nitrogen 7 mg/dL (7-17); Calcium 9.3 mg/dL (8.4-10.2); Carbon Dioxide 26 mmol/L (22-30); Chloride 107 mmol/L (98-107); Eosinophils Absolute Auto 0.2 K/mm3 (0-0.3); Eosinophils Percent Auto 2.3 % (0-4.4); Estimated CRCL calculation 71 ml/min; Estimated Glomerular Filt Rate > 60; Glucose 91 mg/dL (65-110); Hematocrit 37.7 % (37.0-47.0); Hemoglobin 11.8 g/dL (12.0-15.0); Immature Granulocyte Absolute 0.06 K/mm3 (0.00-0.031); Immature Granulocyte Percent A 0.8 % (0-0.5); Lymphocytes Absolute Auto 2.14 K/mm3 (0.9-3.2); Lymphocytes Percent Auto 29.3 % (18.3-44.2); Mean Corpuscular HGB Conc 31.3 g/dl (32-36); Mean Corpuscular Hemoglobin 28.7 pg (26-34); Mean Corpuscular Volume 91.7 fl (80-100); Mean Platelet Volume 9.8 fl (7.4-10.4); Monocytes Absolute Auto 0.6 K/mm3 (0.1-0.6); Monocytes Percent Auto 8.4 % (2.6-8.5); Neutrophils Absolute Auto 4.3 K/mm3 (1.3-6.7); Neutrophils Percent Auto 58.2 % (45.5-73.1); Platelet Count Result 322 k/mm3 (150-375); Potassium 3.9 mmol/L (3.4-5.0); Red Blood Count 4.11 M/mm3 (4.2-5.4); Red Cell Distribution Width 14.6 % (11.5-14.5); Sodium 139 mmol/L (137-145); White Blood Count 7.3 K/mm3 (4.5-10.0)
--- NOTE | 2025-03-08 08:42 | PM.IMPN ---
Progress Note: A&P Assessment and Plan (1) Perforation of sigmoid colon due to diverticulitis: Code(s): K57.20 - Diverticulitis of large intestine with perforation and abscess without bleeding Status: Acute Assessment and Plan: -Continue Zosyn q6hr -Pain control: Morphine IV, acetaminophen -Continue to trend labs, blood cultures pending -Reports last BM yesterday 03/07 -NPO with sips -Colace D/C due to bowel rest, pt reports passing a lot of flatulence today, will default to surgery on this -Gen surg following, appreciate their recs. Per their note today: Pain is more tolerable today, but patient states that she feels like it is now more right-sided. Passing flatus. No vomiting. She accredits nausea to taking home medications on an empty stomach. Normal WBC. Afebrile. Plan to advance to a clear liquid diet and repeat labs and exam tomorrow. Subjective Date/time seen: 03/08/25 1008 Interval history: Patient is a 55-year-old female presents to the ED on 03/06 for upper abdominal pain. Before coming to the emergency department patient went to her PCP office with the same symptoms and obtained an outside CT yielding diverticulitis multiple small contained perforations. A little over 2 weeks ago patient was placed on a 10 day course of Augmentin which mildly helped alleviate the pain but overall did not take it away. In the ED: She was given morphine Zofran as well as a fluid bolus. Started on Zosyn given her multiple antibiotic allergies. Laboratory studies were obtained including blood cultures, CBC, CMP. Outside hospital imaging studies were reviewed that do show perforated diverticulitis although contained with no free air. Multiple segment in the sigmoid colon. Workup shows no leukocytosis or anemia. Normal kidney and hepatic function panel. Re-evaluation shows improvement in pain control and symptom control. Patient started on maintenance IV fluids. General surgery consulted and recs for making the patient NPO with sips and continued antibiotics including Zosyn and he will evaluate the patient on inpatient basis. Pt states that she continues to feel better but is still having pain in her LUQ and RUQ. Discussed the plan with bowel rest, IV pain meds, and IV abx. Pt agreeable. per surgery, trial of CLD tomorrow to see how she tolerates. Review of Systems Review of Systems: All systems reviewed & are unremarkable except as noted in HPI and below Exam Narrative: Pt lying in bed. Const: General: no acute distress HENMT: Face/Nose/Sinus: Normal nares present Mouth: Yes moist mucous membranes Eyes: General: appearance normal, both eyes and all related structures Sclera: sclerae normal Neck: Neck: supple and no JVD Carotids: no bruits Resp: Effort & Inspection: normal respiratory effort Auscultation: clear to auscultation bilaterally Cardio: Rate: regular rate Rhythm: regular rhythm GI: Inspection: non-distended Auscultation: normal bowel sounds Other: Mild TTP LUQ, RUQ Skin: General skin exam: normal color and no rashes or lesions noted Wounds: no wounds Neuro: Cranial nerves: Yes Equal, round and reactive pupils present Speech: normal speech Motor exam (neuro): Normal motor muscle tone present throughout Sensory Exam: normal sensation Extrem: General: normal to inspection Psych: Mental Status: mental status grossly normal Affect: normal affect Objective Data Vital Signs Vital Signs: Vital Signs - 24 hr 03/07/25 14:00 03/07/25 21:10 03/07/25 21:13 Temperature 98.3 F 97.7 F Pulse Rate 94 56 L 56 L Respiratory Rate 12 16 16 Blood Pressure 136/73 114/70 Pulse Oximetry 100 99 99 Oxygen Delivery Room Air 03/08/25 04:27 Temperature 98.1 F Pulse Rate 57 L Respiratory Rate 16 Blood Pressure 136/80 Pulse Oximetry 96 Oxygen Delivery Intake/Output Intake/Output: Intake & Output 03/05/25 03/06/25 03/07/25 03/08/25 23:59 23:59 23:59 23:59 Intake Total 1150 2100 1100 Output Total 2 Balance 1150 2098 1100 Meds/Results Medications: Active Medications Generic Name Dose Route Start Last Admin Trade Name Freq PRN Reason Stop Dose Admin Acetaminophen 650 mg 03/06/25 21:04 Acetaminophen 325 Mg Tablet PO Q4H PRN Mild Pain (1-3) or Fever Alprazolam 0.5 mg 03/07/25 11:28 03/07/25 13:09 Alprazolam (*Crx) 0.5 Mg Tablet PO 0.5 mg TID PRN Administration anxiety Atorvastatin Calcium 10 mg 03/08/25 09:00 03/08/25 08:14 Atorvastatin 10 Mg Tablet PO 10 mg DAILY RAHEEL Administration Buspirone HCl 5 mg 03/07/25 13:00 03/08/25 08:14 Buspirone Hcl 5 Mg Tablet PO 5 mg TID [facility] Administration Calcium Carbonate 1,500 mg 03/08/25 09:00 03/08/25 08:16 Calcium/Vitamin D 500 Mg/5 Mcg (200 I.U.) Tablet PO Not Given QAM [facility] Docusate Sodium 100 mg 03/07/25 17:00 03/08/25 08:16 Docusate Sodium 100 Mg Capsule PO Not Given BID [facility] Folic Acid 1 mg 03/08/25 09:00 03/08/25 08:17 Folic Acid 1 Mg Tablet PO Not Given DAILY [facility] Lactated Ringer's 1,000 mls @ 125 mls/hr 03/06/25 21:05 03/08/25 08:18 Lr - Lactated Ringers Iv IV CONT 125 mls/hr .Q8H [facility] Administration Piperacillin/Tazobactam/Dextrose 3.375 gm in 50 mls @ 100 mls/hr 03/07/25 11:00 03/08/25 06:32 Zosyn 3.375 Gm/Ns 50 Ml IVPB Infused Q6HR [facility] Infusion Levothyroxine Sodium 88 mcg 03/08/25 06:30 03/08/25 06:05 Levothyroxine Sodium 88 Mcg Tablet PO 88 mcg DAILY@0630 [facility] Administration Loratadine 10 mg 03/07/25 21:00 03/07/25 21:12 Loratadine 10 Mg Tablet PO Not Given HS [facility] Magnesium Oxide 200 mg 03/08/25 09:00 03/08/25 08:17 Magnesium Oxide 200 Mg Tablet PO Not Given DAILY [facility] Morphine Sulfate 4 mg 03/06/25 21:04 03/08/25 06:02 Morphine Sulfate (*Crx) 4 Mg/Ml Inj IV PUSH 4 mg Q2H PRN Administration Pain Rated 7-10 Ondansetron HCl 4 mg 03/06/25 21:04 03/08/25 06:03 Ondansetron Inj 4 Mg/2 Ml Vial IV PUSH 4 mg Q4H PRN Administration Nausea Pantoprazole Sodium 40 mg 03/07/25 17:00 03/08/25 08:17 Pantoprazole 40 Mg Tablet PO Not Given BID [facility] Labs Labs: Laboratory Results - last 24 hr 03/08/25 08:05 WBC 7.3 RBC 4.11 L Hgb 11.8 L Hct 37.7 MCV 91.7 MCH 28.7 MCHC 31.3 L RDW 14.6 H Plt Count 322 MPV 9.8 Immature Gran % (Auto) 0.8 H Neut % (Auto) 58.2 Lymph % (Auto) 29.3 [place] % (Auto) 8.4 Eos % (Auto) 2.3 Baso % (Auto) 1.0 Lymph # (Auto) 2.14 [place] # (Auto) 0.6 Eos # (Auto) 0.2 Baso # (Auto) 0.1 Abs Immat Gran (auto) 0.06 H Absolute Neuts (auto) 4.3 Absolute Nucleated RBC 0.000 Nucleated RBC % 0.0 Sodium 139 Potassium 3.9 Chloride 107 Carbon Dioxide 26 Anion Gap 6 BUN 7 D Creatinine 0.86 Estim Creat Clear Calc 71 Estimated GFR > 60 Glucose 91 Calcium 9.3 Total Bilirubin 0.9 AST 24 ALT 25 Alkaline Phosphatase 67 Total Protein 7.0 Albumin 3.8 Quality VTE Prophylaxis VTE prophylaxis: mechanical ordered
--- NOTE | 2025-03-08 10:36 | P.PNGS_ITS ---
Progress Note: A&P Assessment and Plan (1) Diverticulitis: Code(s): K57.92 - Diverticulitis of intestine, part unspecified, without perforation or abscess without bleeding Status: Acute (2) Perforation of sigmoid colon due to diverticulitis: Code(s): K57.20 - Diverticulitis of large intestine with perforation and abscess without bleeding Status: Acute (3) Abdominal pain, LLQ: Code(s): R10.32 - Left lower quadrant pain Status: Acute Assessment and Plan: Pain is more tolerable today, but patient states that she feels like it is now more right-sided. Passing flatus. No vomiting. She accredits nausea to taking home medications on an empty stomach. Normal WBC. Afebrile. Plan to advance to a clear liquid diet and repeat labs and exam tomorrow. Subjective Subjective Date/Time Seen: 03/08/25 10:36 Interval history: Patient is in less pain today, although she feels that pain is now more in RLQ whereas it was more LLQ yesterday. She expresses that she wants to eat. She has some nausea but accredits this to taking her home medications on an empty stomach. Last BM was yesterday morning. Patient reports passing lots of flatus. Exam GI: Inspection: non-distended GI Palp: Yes Soft to palpation, Yes Tenderness to palpation present (GI) and No Guarding due to palpation present (GI) Auscultation: normal bowel sounds Other: Mild tenderness to RLQ and LLQ Objective Data Vital Signs Vital Signs: Vital Signs - 24 hr 03/07/25 14:00 03/07/25 21:10 03/07/25 21:13 Temperature 98.3 F 97.7 F Pulse Rate 94 56 L 56 L Respiratory Rate 12 16 16 Blood Pressure 136/73 114/70 Pulse Oximetry 100 99 99 Oxygen Delivery Room Air 03/08/25 04:27 Temperature 98.1 F Pulse Rate 57 L Respiratory Rate 16 Blood Pressure 136/80 Pulse Oximetry 96 Oxygen Delivery Intake/Output Intake/Output: Intake & Output 03/05/25 03/06/25 03/07/25 03/08/25 23:59 23:59 23:59 23:59 Intake Total 1150 2100 1100 Output Total 2 Balance 1150 2098 1100 Meds/Results Medications: Active Medications Generic Name Dose Route Start Last Admin Trade Name Freq PRN Reason Stop Dose Admin Acetaminophen 650 mg 03/06/25 21:04 Acetaminophen 325 Mg Tablet PO Q4H PRN Mild Pain (1-3) or Fever Alprazolam 0.5 mg 03/07/25 11:28 03/07/25 13:09 Alprazolam (*Crx) 0.5 Mg Tablet PO 0.5 mg TID PRN Administration anxiety Atorvastatin Calcium 10 mg 03/08/25 09:00 03/08/25 08:14 Atorvastatin 10 Mg Tablet PO 10 mg DAILY RAHEEL Administration Buspirone HCl 5 mg 03/07/25 13:00 03/08/25 08:14 Buspirone Hcl 5 Mg Tablet PO 5 mg TID RAHEEL Administration Calcium Carbonate 1,500 mg 03/08/25 09:00 03/08/25 08:16 Calcium/Vitamin D 500 Mg/5 Mcg (200 I.U.) Tablet PO Not Given QAM [facility] Folic Acid 1 mg 03/08/25 09:00 03/08/25 08:17 Folic Acid 1 Mg Tablet PO Not Given DAILY RAHEEL Lactated Ringer's 1,000 mls @ 125 mls/hr 03/06/25 21:05 03/08/25 08:18 Lr - Lactated Ringers Iv IV CONT 125 mls/hr .Q8H [facility] Administration Piperacillin/Tazobactam/Dextrose 3.375 gm in 50 mls @ 100 mls/hr 03/07/25 11:00 03/08/25 06:32 Zosyn 3.375 Gm/Ns 50 Ml IVPB Infused Q6HR [facility] Infusion Levothyroxine Sodium 88 mcg 03/08/25 06:30 03/08/25 06:05 Levothyroxine Sodium 88 Mcg Tablet PO 88 mcg DAILY@0630 RAHEEL Administration Loratadine 10 mg 03/07/25 21:00 03/07/25 21:12 Loratadine 10 Mg Tablet PO Not Given HS RAHEEL Magnesium Oxide 200 mg 03/08/25 09:00 03/08/25 08:17 Magnesium Oxide 200 Mg Tablet PO Not Given DAILY RAHEEL Morphine Sulfate 4 mg 03/06/25 21:04 03/08/25 06:02 Morphine Sulfate (*Crx) 4 Mg/Ml Inj IV PUSH 4 mg Q2H PRN Administration Pain Rated 7-10 Ondansetron HCl 4 mg 03/06/25 21:04 03/08/25 06:03 Ondansetron Inj 4 Mg/2 Ml Vial IV PUSH 4 mg Q4H PRN Administration Nausea Pantoprazole Sodium 40 mg 03/07/25 17:00 03/08/25 08:17 Pantoprazole 40 Mg Tablet PO Not Given BID [facility] Labs Labs: Laboratory Results - last 24 hr 03/08/25 08:05 WBC 7.3 RBC 4.11 L Hgb 11.8 L Hct 37.7 MCV 91.7 MCH 28.7 MCHC 31.3 L RDW 14.6 H Plt Count 322 MPV 9.8 Immature Gran % (Auto) 0.8 H Neut % (Auto) 58.2 Lymph % (Auto) 29.3 [place] % (Auto) 8.4 Eos % (Auto) 2.3 Baso % (Auto) 1.0 Lymph # (Auto) 2.14 [place] # (Auto) 0.6 Eos # (Auto) 0.2 Baso # (Auto) 0.1 Abs Immat Gran (auto) 0.06 H Absolute Neuts (auto) 4.3 Absolute Nucleated RBC 0.000 Nucleated RBC % 0.0 Sodium 139 Potassium 3.9 Chloride 107 Carbon Dioxide 26 Anion Gap 6 BUN 7 D Creatinine 0.86 Estim Creat Clear Calc 71 Estimated GFR > 60 Glucose 91 Calcium 9.3 Total Bilirubin 0.9 AST 24 ALT 25 Alkaline Phosphatase 67 Total Protein 7.0 Albumin 3.8
[2025-03-08] MEDS: ACETAMINOPHEN 325 MG TABLET 650 MG PO (15:41)
[2025-03-08] MEDS: PANTOPRAZOLE 40 MG TABLET PO (16:03)
[2025-03-08 16:55] VITALS: BP 122/62; PULSE 56; RESP 16; TEMP 36.1; O2SAT 100
[2025-03-08 20:00] VITALS: PULSE 52; RESP 16; O2SAT 100
[2025-03-08 20:19] VITALS: BP 131/73; PULSE 52; RESP 16; TEMP 36.2; O2SAT 100
[2025-03-08] MEDS: ALPRAZolam (*CRX) 0.5 MG TABLET 1 MG PO (20:31)
[2025-03-08] MEDS: LORATADINE 10 MG TABLET PO (20:31)
[2025-03-09] MEDS: PIPERACILLN/TAZ 3.375GM/NS50ML 3.375 GM/50 ML BAG IVPB ×5 (00:17→23:51)
[2025-03-09] MEDS: ACETAMINOPHEN 325 MG TABLET 650 MG PO ×4 (03:30→20:52)
[2025-03-09] MEDS: LACTATED RINGERS 1,000 ML 125 ML IV CONT ×3 (03:31→20:52)
[2025-03-09 04:45] VITALS: BP 119/69; PULSE 50; RESP 14; TEMP 36.8; O2SAT 100
[2025-03-09 04:55] LABS: Basophils Absolute Auto 0.1 K/mm3 (0.0-0.1); Basophils Percent Auto 1.1 % (0.2-1.2); Eosinophils Absolute Auto 0.2 K/mm3 (0-0.3); Eosinophils Percent Auto 2.6 % (0-4.4); Hematocrit 34.1 % (37.0-47.0); Hemoglobin 10.8 g/dL (12.0-15.0); Immature Granulocyte Absolute 0.03 K/mm3 (0.00-0.031); Immature Granulocyte Percent A 0.4 % (0-0.5); Lymphocytes Absolute Auto 2.73 K/mm3 (0.9-3.2); Lymphocytes Percent Auto 37.5 % (18.3-44.2); Mean Corpuscular HGB Conc 31.7 g/dl (32-36); Mean Corpuscular Hemoglobin 29.1 pg (26-34); Mean Corpuscular Volume 91.9 fl (80-100); Mean Platelet Volume 9.8 fl (7.4-10.4); Monocytes Absolute Auto 0.6 K/mm3 (0.1-0.6); Monocytes Percent Auto 8.4 % (2.6-8.5); Neutrophils Absolute Auto 3.6 K/mm3 (1.3-6.7); Platelet Count Result 302 k/mm3 (150-375); Red Blood Count 3.71 M/mm3 (4.2-5.4); Red Cell Distribution Width 14.3 % (11.5-14.5); White Blood Count 7.3 K/mm3 (4.5-10.0)
[2025-03-09 05:05] LABS: Alanine Aminotransferase 22 U/L (6-35); Albumin Level 3.4 g/dL (3.5-5.1); Alkaline Phosphatase 55 U/L (38-126); Anion Gap 5 mmol/L (4-12); Aspartate Amino Transferase 23 U/L (14-36); Bilirubin,Total 0.7 mg/dL (0.2-1.3); Blood Urea Nitrogen 6 mg/dL (7-17); Calcium 9.1 mg/dL (8.4-10.2); Carbon Dioxide 26 mmol/L (22-30); Chloride 106 mmol/L (98-107); Estimated CRCL calculation 71 ml/min; Estimated Glomerular Filt Rate > 60; Glucose 94 mg/dL (65-110); Potassium 4.2 mmol/L (3.4-5.0); Sodium 137 mmol/L (137-145)
[2025-03-09] MEDS: LEVOTHYROXINE SODIUM 88 MCG TABLET PO (06:09)
[2025-03-09] MEDS: busPIRone HCL 5 MG TABLET PO ×3 (08:12→16:32)
[2025-03-09] MEDS: PANTOPRAZOLE 40 MG TABLET PO ×2 (08:12→16:32)
--- NOTE | 2025-03-09 12:18 | PM.IMPN ---
Progress Note: A&P Assessment and Plan (1) Perforation of sigmoid colon due to diverticulitis: Code(s): K57.20 - Diverticulitis of large intestine with perforation and abscess without bleeding Status: Acute Assessment and Plan: -Continue Zosyn q6hr -Pain control: Morphine IV, acetaminophen -Continue to trend labs, blood cultures no growth to date, pending final read -Reports last BM this AM -Trial full liquid diet today -Colace D/C due to bowel rest, pt reports passing a lot of flatulence today, will default to surgery on this -Gen surg following, appreciate their recs. Per their note 03/09: Pain is more tolerable today, but patient states that she feels like it is now more right-sided. Passing flatus. No vomiting. She accredits nausea to taking home medications on an empty stomach. Normal WBC. Afebrile. Plan to advance to a clear liquid diet and repeat labs and exam tomorrow. Plan Pain control, IV abx Subjective Date/time seen: 03/09/25 0847 Interval history: Patient is a 55-year-old female presents to the ED on 03/06 for upper abdominal pain. Before coming to the emergency department patient went to her PCP office with the same symptoms and obtained an outside CT yielding diverticulitis multiple small contained perforations. A little over 2 weeks ago patient was placed on a 10 day course of Augmentin which mildly helped alleviate the pain but overall did not take it away. In the ED: She was given morphine Zofran as well as a fluid bolus. Started on Zosyn given her multiple antibiotic allergies. Laboratory studies were obtained including blood cultures, CBC, CMP. Outside hospital imaging studies were reviewed that do show perforated diverticulitis although contained with no free air. Multiple segment in the sigmoid colon. Workup shows no leukocytosis or anemia. Normal kidney and hepatic function panel. Re-evaluation shows improvement in pain control and symptom control. Patient started on maintenance IV fluids. General surgery consulted and recs for diet as tolerated, switched to full liquid diet. Continued antibiotics including Zosyn and they they will continue to evaluate the patient on inpatient basis. Pt states that she continues to feel better but is still having pain in her LUQ, no right sided pain today. Reports that he did have a solid BM this AM and had sharp pain in LUQ pain, she states that she discussed this with surgery when they rounded this AM. Discussed the plan with continuing bowel rest, pain meds (mainly acetaminophen), and IV abx. Pt agreeable. Per surgery, pt will be admitted until at least 03/11/2025. Review of Systems Review of Systems: All systems reviewed & are unremarkable except as noted in HPI and below Exam Narrative: Pt lying in bed. Const: General: no acute distress HENMT: Face/Nose/Sinus: Normal nares present Mouth: Yes moist mucous membranes Eyes: General: appearance normal, both eyes and all related structures Sclera: sclerae normal Neck: Neck: supple and no JVD Resp: Effort & Inspection: normal respiratory effort Auscultation: clear to auscultation bilaterally Cardio: Rate: regular rate Rhythm: regular rhythm GI: Inspection: non-distended Auscultation: normal bowel sounds Other: Mild TTP LUQ Skin: General skin exam: normal color and no rashes or lesions noted Wounds: no wounds Neuro: Cranial nerves: Yes Equal, round and reactive pupils present Speech: normal speech Motor exam (neuro): Normal motor muscle tone present throughout Sensory Exam: normal sensation Extrem: General: normal to inspection Psych: Mental Status: mental status grossly normal Affect: normal affect Objective Data Vital Signs Vital Signs: Vital Signs - 24 hr 03/08/25 16:55 03/08/25 20:00 03/08/25 20:19 Temperature 97.0 F L 97.1 F L Pulse Rate 56 L 52 L 52 L Respiratory Rate 16 16 16 Blood Pressure 122/62 131/73 Pulse Oximetry 100 100 100 Oxygen Delivery Room Air 03/09/25 04:45 Temperature 98.3 F Pulse Rate 50 L Respiratory Rate 14 Blood Pressure 119/69 Pulse Oximetry 100 Oxygen Delivery Intake/Output Intake/Output: Intake & Output 03/06/25 03/07/25 03/08/25 03/09/25 23:59 23:59 23:59 23:59 Intake Total 1150 2100 3280 2730 Output Total 2 Balance 1150 2098 3280 2730 Meds/Results Medications: Active Medications Generic Name Dose Route Start Last Admin Trade Name Freq PRN Reason Stop Dose Admin Acetaminophen 650 mg 03/06/25 21:04 03/09/25 08:15 Acetaminophen 325 Mg Tablet PO 650 mg Q4H PRN Administration Mild Pain (1-3) or Fever Hydrocodone Bitart/Acetaminophen 1 tab 03/08/25 11:45 Hydrocodone/Acetaminophen (*Crx) 5-325 Mg Tablet PO Q4H PRN Pain Rated 4-6 Alprazolam 1 mg 03/08/25 14:32 03/08/25 20:31 Alprazolam (*Crx) 0.5 Mg Tablet PO 1 mg QPM PRN Administration anxiety Atorvastatin Calcium 10 mg 03/08/25 09:00 03/09/25 08:12 Atorvastatin 10 Mg Tablet PO Not Given DAILY RAHEEL Buspirone HCl 5 mg 03/07/25 13:00 03/09/25 12:02 Buspirone Hcl 5 Mg Tablet PO 5 mg TID RAHEEL Administration Calcium Carbonate 1,500 mg 03/08/25 09:00 03/09/25 08:12 Calcium/Vitamin D 500 Mg/5 Mcg (200 I.U.) Tablet PO Not Given QAM [facility]HE[facility] Folic Acid 1 mg 03/08/25 09:00 03/09/25 08:13 Folic Acid 1 Mg Tablet PO Not Given DAILY RAHEEL Lactated Ringer's 1,000 mls @ 125 mls/hr 03/06/25 21:05 03/09/25 12:03 Lr - Lactated Ringers Iv IV CONT 125 mls/hr .Q8H [facility] Administration Piperacillin/Tazobactam/Dextrose 3.375 gm in 50 mls @ 100 mls/hr 03/07/25 11:00 03/09/25 12:03 Zosyn 3.375 Gm/Ns 50 Ml IVPB 100 mls/hr Q6HR [facility] Administration Levothyroxine Sodium 88 mcg 03/08/25 06:30 03/09/25 06:09 Levothyroxine Sodium 88 Mcg Tablet PO 88 mcg DAILY@0630 [facility] Administration Loratadine 10 mg 03/07/25 21:00 03/08/25 20:31 Loratadine 10 Mg Tablet PO 10 mg HS RAHEEL Administration Magnesium Oxide 200 mg 03/08/25 09:00 03/09/25 08:13 Magnesium Oxide 200 Mg Tablet PO Not Given DAILY RAHEEL Morphine Sulfate 4 mg 03/06/25 21:04 03/08/25 18:58 Morphine Sulfate (*Crx) 4 Mg/Ml Inj IV PUSH 4 mg Q2H PRN Administration Pain Rated 7-10 Ondansetron HCl 4 mg 03/06/25 21:04 03/08/25 18:58 Ondansetron Inj 4 Mg/2 Ml Vial IV PUSH 4 mg Q4H PRN Administration Nausea Pantoprazole Sodium 40 mg 03/07/25 17:00 03/09/25 08:12 Pantoprazole 40 Mg Tablet PO 40 mg BID RAHEEL Administration Labs Labs: Laboratory Results - last 24 hr 03/09/25 04:38 WBC 7.3 RBC 3.71 L Hgb 10.8 L Hct 34.1 L MCV 91.9 MCH 29.1 MCHC 31.7 L RDW 14.3 Plt Count 302 MPV 9.8 Immature Gran % (Auto) 0.4 Neut % (Auto) 50.0 Lymph % (Auto) 37.5 [place] % (Auto) 8.4 Eos % (Auto) 2.6 Baso % (Auto) 1.1 Lymph # (Auto) 2.73 [place] # (Auto) 0.6 Eos # (Auto) 0.2 Baso # (Auto) 0.1 Abs Immat Gran (auto) 0.03 Absolute Neuts (auto) 3.6 Absolute Nucleated RBC 0.000 Nucleated RBC % 0.0 Sodium 137 Potassium 4.2 Chloride 106 Carbon Dioxide 26 Anion Gap 5 BUN 6 L Creatinine 0.87 Estim Creat Clear Calc 71 Estimated GFR > 60 Glucose 94 Calcium 9.1 Total Bilirubin 0.7 AST 23 ALT 22 Alkaline Phosphatase 55 Total Protein 6.0 L Albumin 3.4 L Quality VTE Prophylaxis VTE prophylaxis: mechanical ordered
[2025-03-09 15:00] VITALS: BP 157/95; PULSE 60; RESP 16; O2SAT 100
[2025-03-09 20:19] VITALS: BP 128/67; PULSE 58; RESP 16; TEMP 36.2; O2SAT 100
[2025-03-09] MEDS: LORATADINE 10 MG TABLET PO (20:45)
[2025-03-09] MEDS: ALPRAZolam (*CRX) 0.5 MG TABLET 1 MG PO (20:47)
[2025-03-10] MEDS: ACETAMINOPHEN 325 MG TABLET 650 MG PO ×2 (02:25→17:15)
[2025-03-10 05:24] VITALS: BP 123/63; PULSE 54; RESP 16; TEMP 36.8; O2SAT 100
[2025-03-10] MEDS: LACTATED RINGERS 1,000 ML 125 ML IV CONT (05:27)
[2025-03-10 05:41] LABS: Basophils Absolute Auto 0.1 K/mm3 (0.0-0.1); Basophils Percent Auto 1.2 % (0.2-1.2); Eosinophils Absolute Auto 0.3 K/mm3 (0-0.3); Eosinophils Percent Auto 2.7 % (0-4.4); Hematocrit 34.5 % (37.0-47.0); Hemoglobin 11.4 g/dL (12.0-15.0); Immature Granulocyte Absolute 0.04 K/mm3 (0.00-0.031); Immature Granulocyte Percent A 0.4 % (0-0.5); Lymphocytes Percent Auto 31.6 % (18.3-44.2); Mean Corpuscular Hemoglobin 29.2 pg (26-34); Mean Corpuscular Volume 88.5 fl (80-100); Mean Platelet Volume 9.8 fl (7.4-10.4); Monocytes Absolute Auto 0.8 K/mm3 (0.1-0.6); Monocytes Percent Auto 8.4 % (2.6-8.5); Neutrophils Absolute Auto 5.1 K/mm3 (1.3-6.7); Neutrophils Percent Auto 55.7 % (45.5-73.1); Platelet Count Result 309 k/mm3 (150-375); Red Cell Distribution Width 14.2 % (11.5-14.5); White Blood Count 9.2 K/mm3 (4.5-10.0)
[2025-03-10] MEDS: LEVOTHYROXINE SODIUM 88 MCG TABLET PO (05:44)
[2025-03-10] MEDS: PIPERACILLN/TAZ 3.375GM/NS50ML 3.375 GM/50 ML BAG IVPB ×3 (05:44→17:16)
[2025-03-10] MEDS: HYDROcodone/acetaminophen (*CRX) 5-325 MG TABLET 1 TAB PO (05:52)
[2025-03-10 06:04] LABS: Alanine Aminotransferase 20 U/L (6-35); Albumin Level 3.3 g/dL (3.5-5.1); Alkaline Phosphatase 55 U/L (38-126); Anion Gap 6 mmol/L (4-12); Aspartate Amino Transferase 23 U/L (14-36); Bilirubin,Total 0.5 mg/dL (0.2-1.3); Blood Urea Nitrogen 5 mg/dL (7-17); Calcium 8.9 mg/dL (8.4-10.2); Carbon Dioxide 26 mmol/L (22-30); Chloride 110 mmol/L (98-107); Estimated CRCL calculation 75 ml/min; Estimated Glomerular Filt Rate > 60; Glucose 91 mg/dL (65-110); Potassium 3.3 mmol/L (3.4-5.0); Sodium 142 mmol/L (137-145)
--- NOTE | 2025-03-10 07:06 | P.PNIM_ITS ---
Progress Note: A&P Assessment and Plan (1) Perforation of sigmoid colon due to diverticulitis: Code(s): K57.20 - Diverticulitis of large intestine with perforation and abscess without bleeding Status: Acute Assessment and Plan: -Continue Zosyn q6hr -Pain control: Morphine IV as needed, mainly using acetaminophen -Continue to trend labs, blood cultures no growth to date, pending final read -Reports last BM this AM -Continue full liquid diet today per surg -Colace D/C due to bowel rest, pt reports passing a lot of flatulence today, will default to surgery on this -Gen surg following, appreciate their recs. Per their note 03/09: Patient seems to be responding well to non operative management of her sigmoid diverticulitis with microperforation. She has been tolerating clear liquids. We will go ahead and advance to full liquid diet today. White blood cell count remains normal. Continue IV antibiotics until discharge and then bleeds course of oral antibiotics at home. Surgery will continue following. Plan Pain control, IV abx Subjective Date/time seen: 03/10/25 0918 Interval history: Patient is a 55-year-old female presents to the ED on 03/06 for upper abdominal pain. Before coming to the emergency department patient went to her PCP office with the same symptoms and obtained an outside CT yielding diverticulitis multiple small contained perforations. A little over 2 weeks ago patient was placed on a 10 day course of Augmentin which mildly helped alleviate the pain but overall did not take it away. In the ED: She was given morphine Zofran as well as a fluid bolus. Started on Zosyn given her multiple antibiotic allergies. Laboratory studies were obtained including blood cultures, CBC, CMP. Outside hospital imaging studies were reviewed that do show perforated diverticulitis although contained with no free air. Multiple segment in the sigmoid colon. Workup shows no leukocytosis or anemia. Normal kidney and hepatic function panel. Re-evaluation shows improvement in pain control and symptom control. Patient started on maintenance IV fluids. General surgery consulted and recs for diet as tolerated, switched to full liquid diet. Continued antibiotics including Zosyn and they they will continue to evaluate the patient on inpatient basis. Pt states that she continues to feel better but is still having mild pain in her mild LUQ, but it has been controlled with acetaminophen. Reports that he did have a loose BM this AM and she states that she plans to discuss this with surgery when they round this AM. I updated her this may just be due to abx, her diet, etc. Discussed the plan with continuing bowel rest, pain meds (acetaminophen), and IV abx. Pt agreeable. Per pt, per surgery, pt will be admitted until at least 03/11/2025 for bowel rest and pain control. Pt has been able to shower daily without issue. Review of Systems Review of Systems: All systems reviewed & are unremarkable except as noted in HPI and below Exam Narrative: Pt lying in bed Const: General: no acute distress HENMT: Face/Nose/Sinus: Normal nares present Mouth: Yes moist mucous membranes Eyes: General: appearance normal, both eyes and all related structures Sclera: sclerae normal Neck: Neck: supple and no JVD Resp: Effort & Inspection: normal respiratory effort Auscultation: clear to auscultation bilaterally Cardio: Rate: regular rate Rhythm: regular rhythm GI: Inspection: non-distended Auscultation: normal bowel sounds Other: Mild TTP LUQ Skin: General skin exam: normal color and no rashes or lesions noted Wounds: no wounds Neuro: Cranial nerves: Yes Equal, round and reactive pupils present Speech: normal speech Motor exam (neuro): Normal motor muscle tone present throughout Sensory Exam: normal sensation Extrem: General: normal to inspection and no pedal edema Psych: Mental Status: mental status grossly normal Affect: normal affect Objective Data Vital Signs Vital Signs: Vital Signs - 24 hr 03/09/25 15:00 03/09/25 20:00 03/09/25 20:19 Temperature 97.2 F L Pulse Rate 60 58 L Respiratory Rate 16 16 Blood Pressure 157/95 H 128/67 Pulse Oximetry 100 100 Oxygen Delivery Room Air 03/10/25 05:24 Temperature 98.2 F Pulse Rate 54 L Respiratory Rate 16 Blood Pressure 123/63 Pulse Oximetry 100 Oxygen Delivery Intake/Output Intake/Output: Intake & Output 03/07/25 03/08/25 03/09/25 03/10/25 23:59 23:59 23:59 23:59 Intake Total 2100 3280 5500 1200 Output Total 2 Balance 2098 3280 5500 1200 Meds/Results Medications: Active Medications Generic Name Dose Route Start Last Admin Trade Name Freq PRN Reason Stop Dose Admin Acetaminophen 650 mg 03/06/25 21:04 03/10/25 02:25 Acetaminophen 325 Mg Tablet PO 650 mg Q4H PRN Administration Mild Pain (1-3) or Fever Hydrocodone Bitart/Acetaminophen 1 tab 03/08/25 11:45 03/10/25 05:52 Hydrocodone/Acetaminophen (*Crx) 5-325 Mg Tablet PO 1 tab Q4H PRN Administration Pain Rated 4-6 Alprazolam 1 mg 03/08/25 14:32 03/09/25 20:47 Alprazolam (*Crx) 0.5 Mg Tablet PO 1 mg QPM PRN Administration anxiety Atorvastatin Calcium 10 mg 03/08/25 09:00 03/09/25 08:12 Atorvastatin 10 Mg Tablet PO Not Given DAILY RAHEEL Buspirone HCl 5 mg 03/07/25 13:00 03/09/25 16:32 Buspirone Hcl 5 Mg Tablet PO 5 mg TID RAHELE Administration Calcium Carbonate 1,500 mg 03/08/25 09:00 03/09/25 08:12 Calcium/Vitamin D 500 Mg/5 Mcg (200 I.U.) Tablet PO Not Given QAM RAHEEL Folic Acid 1 mg 03/08/25 09:00 03/09/25 08:13 Folic Acid 1 Mg Tablet PO Not Given DAILY RAHEEL Lactated Ringer's 1,000 mls @ 125 mls/hr 03/06/25 21:05 03/10/25 05:27 Lr - Lactated Ringers Iv IV CONT 125 mls/hr .Q8H RAHEEL Administration Piperacillin/Tazobactam/Dextrose 3.375 gm in 50 mls @ 100 mls/hr 03/07/25 11:00 03/10/25 06:14 Zosyn 3.375 Gm/Ns 50 Ml IVPB Infused Q6HR RAHEEL Infusion Levothyroxine Sodium 88 mcg 03/08/25 06:30 03/10/25 05:44 Levothyroxine Sodium 88 Mcg Tablet PO 88 mcg DAILY@0630 RAHEEL Administration Loratadine 10 mg 03/07/25 21:00 03/09/25 20:45 Loratadine 10 Mg Tablet PO 10 mg HS RAHEEL Administration Magnesium Oxide 200 mg 03/08/25 09:00 03/09/25 08:13 Magnesium Oxide 200 Mg Tablet PO Not Given DAILY RAHEEL Morphine Sulfate 4 mg 03/06/25 21:04 03/08/25 18:58 Morphine Sulfate (*Crx) 4 Mg/Ml Inj IV PUSH 4 mg Q2H PRN Administration Pain Rated 7-10 Ondansetron HCl 4 mg 03/06/25 21:04 03/08/25 18:58 Ondansetron Inj 4 Mg/2 Ml Vial IV PUSH 4 mg Q4H PRN Administration Nausea Pantoprazole Sodium 40 mg 03/07/25 17:00 03/09/25 16:32 Pantoprazole 40 Mg Tablet PO 40 mg BID RAHEEL Administration Labs Labs: Laboratory Results - last 24 hr 03/10/25 05:18 WBC 9.2 RBC 3.90 L Hgb 11.4 L Hct 34.5 L MCV 88.5 MCH 29.2 MCHC 33.0 RDW 14.2 Plt Count 309 MPV 9.8 Immature Gran % (Auto) 0.4 Neut % (Auto) 55.7 Lymph % (Auto) 31.6 [place] % (Auto) 8.4 Eos % (Auto) 2.7 Baso % (Auto) 1.2 Lymph # (Auto) 2.90 [place] # (Auto) 0.8 H Eos # (Auto) 0.3 Baso # (Auto) 0.1 Abs Immat Gran (auto) 0.04 H Absolute Neuts (auto) 5.1 Absolute Nucleated RBC 0.000 Nucleated RBC % 0.0 Sodium 142 Potassium 3.3 L Chloride 110 H Carbon Dioxide 26 Anion Gap 6 BUN 5 L Creatinine 0.82 Estim Creat Clear Calc 75 Estimated GFR > 60 Glucose 91 Calcium 8.9 Total Bilirubin 0.5 AST 23 ALT 20 Alkaline Phosphatase 55 Total Protein 6.0 L Albumin 3.3 L Quality VTE Prophylaxis VTE prophylaxis: mechanical ordered
--- NOTE | 2025-03-10 08:06 | WPDPN ---
Progress Note: A&P Assessment and Plan (1) Perforation of sigmoid colon due to diverticulitis: Code(s): K57.20 - Diverticulitis of large intestine with perforation and abscess without bleeding Status: Acute Assessment and Plan: Patient seems to be responding well to non operative management of her sigmoid diverticulitis with microperforation. She has been tolerating clear liquids. We will go ahead and advance to full liquid diet today. White blood cell count remains normal. Continue IV antibiotics until discharge and then bleeds course of oral antibiotics at home. Surgery will continue following. Subjective Date/time seen: 03/09/25 Interval history: Patient seems to be doing well this morning. She did have a bowel movement earlier today. It was semi formed. She tolerated clear liquids yesterday. White blood cell count is normal. Exam GI: Other: Abdomen is soft and nondistended. Still has some very mild left lower quadrant suprapubic tenderness. No guarding and no peritoneal signs. Exam is better. Objective Data Vital Signs Vital Signs: Vital Signs - 24 hr 03/09/25 15:00 03/09/25 20:00 03/09/25 20:19 Temperature 36.2 C L Pulse Rate 60 58 L Respiratory Rate 16 16 Blood Pressure 157/95 H 128/67 Pulse Oximetry 100 100 Oxygen Delivery Room Air 03/10/25 05:24 Temperature 36.8 C Pulse Rate 54 L Respiratory Rate 16 Blood Pressure 123/63 Pulse Oximetry 100 Oxygen Delivery Intake/Output Intake/Output: Intake & Output 03/07/25 03/08/25 03/09/25 03/10/25 23:59 23:59 23:59 23:59 Intake Total 2100 3280 5500 1200 Output Total 2 Balance 2098 3280 5500 1200 Meds/Results Medications: Active Medications Generic Name Dose Route Start Last Admin Trade Name Freq PRN Reason Stop Dose Admin Acetaminophen 650 mg 03/06/25 21:04 03/10/25 02:25 Acetaminophen 325 Mg Tablet PO 650 mg Q4H PRN Administration Mild Pain (1-3) or Fever Hydrocodone Bitart/Acetaminophen 1 tab 03/08/25 11:45 03/10/25 05:52 Hydrocodone/Acetaminophen (*Crx) 5-325 Mg Tablet PO 1 tab Q4H PRN Administration Pain Rated 4-6 Alprazolam 1 mg 03/08/25 14:32 03/09/25 20:47 Alprazolam (*Crx) 0.5 Mg Tablet PO 1 mg QPM PRN Administration anxiety Atorvastatin Calcium 10 mg 03/08/25 09:00 03/09/25 08:12 Atorvastatin 10 Mg Tablet PO Not Given DAILY RAHEEL Buspirone HCl 5 mg 03/07/25 13:00 03/09/25 16:32 Buspirone Hcl 5 Mg Tablet PO 5 mg TID RAHEEL Administration Calcium Carbonate 1,500 mg 03/08/25 09:00 03/09/25 08:12 Calcium/Vitamin D 500 Mg/5 Mcg (200 I.U.) Tablet PO Not Given QAM RAHEEL Folic Acid 1 mg 03/08/25 09:00 03/09/25 08:13 Folic Acid 1 Mg Tablet PO Not Given DAILY RAHEEL Lactated Ringer's 1,000 mls @ 125 mls/hr 03/06/25 21:05 03/10/25 05:27 Lr - Lactated Ringers Iv IV CONT 125 mls/hr .Q8H RAHEEL Administration Piperacillin/Tazobactam/Dextrose 3.375 gm in 50 mls @ 100 mls/hr 03/07/25 11:00 03/10/25 06:14 Zosyn 3.375 Gm/Ns 50 Ml IVPB Infused Q6HR RAHEEL Infusion Levothyroxine Sodium 88 mcg 03/08/25 06:30 03/10/25 05:44 Levothyroxine Sodium 88 Mcg Tablet PO 88 mcg DAILY@0630 RAHEEL Administration Loratadine 10 mg 03/07/25 21:00 03/09/25 20:45 Loratadine 10 Mg Tablet PO 10 mg HS RAHEEL Administration Magnesium Oxide 200 mg 03/08/25 09:00 03/09/25 08:13 Magnesium Oxide 200 Mg Tablet PO Not Given DAILY [facility] Morphine Sulfate 4 mg 03/06/25 21:04 03/08/25 18:58 Morphine Sulfate (*Crx) 4 Mg/Ml Inj IV PUSH 4 mg Q2H PRN Administration Pain Rated 7-10 Ondansetron HCl 4 mg 03/06/25 21:04 03/08/25 18:58 Ondansetron Inj 4 Mg/2 Ml Vial IV PUSH 4 mg Q4H PRN Administration Nausea Pantoprazole Sodium 40 mg 03/07/25 17:00 05/30/25 16:32 Pantoprazole 40 Mg Tablet PO 40 mg BID RAHEEL Administration Labs Labs: Laboratory Results - last 24 hr 03/10/25 05:18 WBC 9.2 RBC 3.90 L Hgb 11.4 L Hct 34.5 L MCV 88.5 MCH 29.2 MCHC 33.0 RDW 14.2 Plt Count 309 MPV 9.8 Immature Gran % (Auto) 0.4 Neut % (Auto) 55.7 Lymph % (Auto) 31.6 [place] % (Auto) 8.4 Eos % (Auto) 2.7 Baso % (Auto) 1.2 Lymph # (Auto) 2.90 [place] # (Auto) 0.8 H Eos # (Auto) 0.3 Baso # (Auto) 0.1 Abs Immat Gran (auto) 0.04 H Absolute Neuts (auto) 5.1 Absolute Nucleated RBC 0.000 Nucleated RBC % 0.0 Sodium 142 Potassium 3.3 L Chloride 110 H Carbon Dioxide 26 Anion Gap 6 BUN 5 L Creatinine 0.82 Estim Creat Clear Calc 75 Estimated GFR > 60 Glucose 91 Calcium 8.9 Total Bilirubin 0.5 AST 23 ALT 20 Alkaline Phosphatase 55 Total Protein 6.0 L Albumin 3.3 L
[2025-03-10] MEDS: MAGNESIUM OXIDE 200 MG TABLET PO (08:25)
[2025-03-10] MEDS: ATORVASTATIN 10 MG TABLET PO (08:25)
[2025-03-10] MEDS: busPIRone HCL 5 MG TABLET PO ×3 (08:25→17:16)
[2025-03-10] MEDS: PANTOPRAZOLE 40 MG TABLET PO ×2 (08:25→17:16)
[2025-03-10 13:49] VITALS: BP 125/75; PULSE 75; RESP 16; TEMP 36.6; O2SAT 100
--- NOTE | 2025-03-10 14:00 | P.PN_ITS ---
Progress Note: A&P Assessment and Plan (1) Perforation of sigmoid colon due to diverticulitis: Code(s): K57.20 - Diverticulitis of large intestine with perforation and abscess without bleeding Status: Acute Assessment and Plan: Responding well to non operative managed with IV antibiotics for sigmoid diverticulitis with micro perforation. But advanced to low-fiber diet today. If she continues to do well then likely discharge tomorrow on oral antibiotics at home. Subjective Date/time seen: 03/10/25 14:00 Interval history: Patient is doing well today. Decreasing left lower quadrant abdominal pain. She tolerated clear liquids. She would like to have something more substantial to eat. White blood count is normal. No fever. Now having some loose stools. Exam GI: Other: Abdomen is soft and nondistended. Minimal tenderness left lower quadrant. No guarding or peritoneal signs. Objective Data Vital Signs Vital Signs: Vital Signs - 24 hr 03/09/25 15:00 03/09/25 20:00 03/09/25 20:19 Temperature 36.2 C L Pulse Rate 60 58 L Respiratory Rate 16 16 Blood Pressure 157/95 H 128/67 Pulse Oximetry 100 100 Oxygen Delivery Room Air 03/10/25 05:24 03/10/25 13:49 Temperature 36.8 C 36.6 C Pulse Rate 54 L 75 Respiratory Rate 16 16 Blood Pressure 123/63 125/75 Pulse Oximetry 100 100 Oxygen Delivery Intake/Output Intake/Output: Intake & Output 03/07/25 03/08/25 03/09/25 03/10/25 23:59 23:59 23:59 23:59 Intake Total 2099 3280 5500 1730 Output Total 2 Balance 8 3280 5500 1730 Meds/Results Medications: Active Medications Generic Name Dose Route Start Last Admin Trade Name Freq PRN Reason Stop Dose Admin Acetaminophen 650 mg 03/06/25 21:04 03/10/25 02:25 Acetaminophen 325 Mg Tablet PO 650 mg Q4H PRN Administration Mild Pain (1-3) or Fever Hydrocodone Bitart/Acetaminophen 1 tab 03/08/25 11:45 03/10/25 05:52 Hydrocodone/Acetaminophen (*Crx) 5-325 Mg Tablet PO 1 tab Q4H PRN Administration Pain Rated 4-6 Alprazolam 1 mg 03/08/25 14:32 03/09/25 20:47 Alprazolam (*Crx) 0.5 Mg Tablet PO 1 mg QPM PRN Administration anxiety Atorvastatin Calcium 10 mg 03/08/25 09:00 03/10/25 08:25 Atorvastatin 10 Mg Tablet PO 10 mg DAILY RAHEEL Administration Buspirone HCl 5 mg 03/07/25 13:00 03/10/25 12:34 Buspirone Hcl 5 Mg Tablet PO 5 mg TID RAHEEL Administration Calcium Carbonate 1,500 mg 03/08/25 09:00 03/10/25 08:25 Calcium/Vitamin D 500 Mg/5 Mcg (200 I.U.) Tablet PO Not Given QAM RAHEEL Folic Acid 1 mg 03/08/25 09:00 03/10/25 08:25 Folic Acid 1 Mg Tablet PO Not Given DAILY [facility] Lactated Ringer's 1,000 mls @ 125 mls/hr 03/06/25 21:05 03/10/25 05:27 Lr - Lactated Ringers Iv IV CONT 125 mls/hr .Q8H RAHEEL Administration Piperacillin/Tazobactam/Dextrose 3.375 gm in 50 mls @ 100 mls/hr 03/07/25 11:00 03/10/25 13:04 Zosyn 3.375 Gm/Ns 50 Ml IVPB Infused Q6HR RAHEEL Infusion Levothyroxine Sodium 88 mcg 03/08/25 06:30 03/10/25 05:44 Levothyroxine Sodium 88 Mcg Tablet PO 88 mcg DAILY@0630 RAHEEL Administration Loratadine 10 mg 03/07/25 21:00 03/09/25 20:45 Loratadine 10 Mg Tablet PO 10 mg HS RAHEEL Administration Magnesium Oxide 200 mg 03/08/25 09:00 03/10/25 08:25 Magnesium Oxide 200 Mg Tablet PO 200 mg DAILY RAHEEL Administration Morphine Sulfate 4 mg 03/06/25 21:04 03/08/25 18:58 Morphine Sulfate (*Crx) 4 Mg/Ml Inj IV PUSH 4 mg Q2H PRN Administration Pain Rated 7-10 Ondansetron HCl 4 mg 03/06/25 21:04 03/08/25 18:58 Ondansetron Inj 4 Mg/2 Ml Vial IV PUSH 4 mg Q4H PRN Administration Nausea Pantoprazole Sodium 40 mg 03/07/25 17:00 03/10/25 08:25 Pantoprazole 40 Mg Tablet PO 40 mg BID RAHEEL Administration Labs Labs: Laboratory Results - last 24 hr 03/10/25 05:18 WBC 9.2 RBC 3.90 L Hgb 11.4 L Hct 34.5 L MCV 88.5 MCH 29.2 MCHC 33.0 RDW 14.2 Plt Count 309 MPV 9.8 Immature Gran % (Auto) 0.4 Neut % (Auto) 55.7 Lymph % (Auto) 31.6 [place] % (Auto) 8.4 Eos % (Auto) 2.7 Baso % (Auto) 1.2 Lymph # (Auto) 2.90 [place] # (Auto) 0.8 H Eos # (Auto) 0.3 Baso # (Auto) 0.1 Abs Immat Gran (auto) 0.04 H Absolute Neuts (auto) 5.1 Absolute Nucleated RBC 0.000 Nucleated RBC % 0.0 Sodium 142 Potassium 3.3 L Chloride 110 H Carbon Dioxide 26 Anion Gap 6 BUN 5 L Creatinine 0.82 Estim Creat Clear Calc 75 Estimated GFR > 60 Glucose 91 Calcium 8.9 Total Bilirubin 0.5 AST 23 ALT 20 Alkaline Phosphatase 55 Total Protein 6.0 L Albumin 3.3 L
[2025-03-10 20:00] VITALS: O2SAT 100
[2025-03-10 21:23] VITALS: PULSE 80; RESP 20; O2SAT 97
[2025-03-10] MEDS: LORATADINE 10 MG TABLET PO (21:54)
[2025-03-10] MEDS: ALPRAZolam (*CRX) 0.5 MG TABLET 1 MG PO (21:55)
[2025-03-10 22:00] VITALS: BP 131/64; PULSE 60; RESP 18; TEMP 36.3; O2SAT 100
[2025-03-11] MEDS: PIPERACILLN/TAZ 3.375GM/NS50ML 3.375 GM/50 ML BAG IVPB ×3 (00:07→11:36)
[2025-03-11 05:29] LABS: Basophils Absolute Auto 0.1 K/mm3 (0.0-0.1); Basophils Percent Auto 1.1 % (0.2-1.2); Eosinophils Absolute Auto 0.2 K/mm3 (0-0.3); Eosinophils Percent Auto 2.5 % (0-4.4); Hematocrit 36.7 % (37.0-47.0); Hemoglobin 11.8 g/dL (12.0-15.0); Immature Granulocyte Absolute 0.07 K/mm3 (0.00-0.031); Immature Granulocyte Percent A 0.7 % (0-0.5); Lymphocytes Absolute Auto 3.26 K/mm3 (0.9-3.2); Lymphocytes Percent Auto 34.6 % (18.3-44.2); Mean Corpuscular HGB Conc 32.2 g/dl (32-36); Mean Corpuscular Hemoglobin 29.1 pg (26-34); Mean Corpuscular Volume 90.6 fl (80-100); Mean Platelet Volume 9.8 fl (7.4-10.4); Monocytes Absolute Auto 0.6 K/mm3 (0.1-0.6); Monocytes Percent Auto 6.7 % (2.6-8.5); Neutrophils Absolute Auto 5.1 K/mm3 (1.3-6.7); Neutrophils Percent Auto 54.4 % (45.5-73.1); Platelet Count Result 338 k/mm3 (150-375); Red Blood Count 4.05 M/mm3 (4.2-5.4); Red Cell Distribution Width 14.6 % (11.5-14.5); White Blood Count 9.4 K/mm3 (4.5-10.0)
[2025-03-11 05:40] LABS: Alanine Aminotransferase 22 U/L (6-35); Albumin Level 3.8 g/dL (3.5-5.1); Alkaline Phosphatase 54 U/L (38-126); Anion Gap 9 mmol/L (4-12); Aspartate Amino Transferase 22 U/L (14-36); Bilirubin,Total 0.7 mg/dL (0.2-1.3); Blood Urea Nitrogen 4 mg/dL (7-17); Calcium 9.1 mg/dL (8.4-10.2); Carbon Dioxide 23 mmol/L (22-30); Chloride 110 mmol/L (98-107); Estimated CRCL calculation 73 ml/min; Estimated Glomerular Filt Rate > 60; Glucose 88 mg/dL (65-110); Potassium 3.3 mmol/L (3.4-5.0); Sodium 142 mmol/L (137-145)
[2025-03-11] MEDS: LEVOTHYROXINE SODIUM 88 MCG TABLET PO (05:51)
[2025-03-11 06:00] VITALS: BP 127/69; PULSE 60; RESP 18; TEMP 36.8; O2SAT 99
[2025-03-11] MEDS: ATORVASTATIN 10 MG TABLET PO (09:25)
[2025-03-11] MEDS: PANTOPRAZOLE 40 MG TABLET PO (09:26)
[2025-03-11] MEDS: MAGNESIUM OXIDE 200 MG TABLET PO (09:26)
[2025-03-11] MEDS: CALCIUM/VITAMIN D 500 MG/5 MCG (200 I.U.) TABLET 1500 MG PO (09:26)
[2025-03-11] MEDS: FOLIC ACID 1 MG TABLET PO (09:26)
[2025-03-11] MEDS: busPIRone HCL 5 MG TABLET PO (09:26)
[2025-03-11] MEDS: ACETAMINOPHEN 325 MG TABLET 650 MG PO (09:30)
--- NOTE | 2025-03-11 10:24 | P.DS_ITS ---
DS: Admitting Diagnosis Discharge Date 03/11/2025 Admitting Diagnosis Diverticulitis DS: Discharge Diagnosis Discharge Diagnosis (1) Perforation of sigmoid colon due to diverticulitis: Code(s): K57.20 - Diverticulitis of large intestine with perforation and abscess without bleeding Status: Acute Assessment and Plan: -Continue Zosyn q6hr (last dose at 12p today), surg to switch to oral abx at D/C -Pain control: Morphine IV as needed, mainly using acetaminophen, pain has been minimal. Acetaminophen at home. -Labs have been stable, blood cultures no growth to date -Reports last BM this AM, still loose, per surg this is normal and will be like this for a few days; recs for continuation of metamucil at home if continues for over x 5 days. -Has been tolerating low fiber diet, continue at home with above parameters Plan D/C with oral abx, f/u with surg in 1-2 weeks DS: Summary Hospital Course Reason for hospitalization: Diverticulitis Hospital Course: Patient is a 55-year-old female presents to the ED on 03/06 for upper abdominal pain. Before coming to the emergency department patient went to her PCP office with the same symptoms and obtained an outside CT yielding diverticulitis multiple small contained perforations. A little over 2 weeks ago patient was placed on a 10 day course of Augmentin which mildly helped alleviate the pain but overall did not take it away. In the ED: She was given morphine Zofran as well as a fluid bolus. Started on Zosyn given her multiple antibiotic allergies. Laboratory studies were obtained including blood cultures, CBC, CMP. Outside hospital imaging studies were reviewed that do show perforated diverticulitis although contained with no free air. Multiple segment in the sigmoid colon. Workup shows no leukocytosis or anemia. Normal kidney and hepatic function panel. Re-evaluation shows improvement in pain control and symptom control. Patient started on maintenance IV fluids. General surgery consulted and recs for diet as tolerated, switched to full liquid diet and has increased to low fiber, which she will go home on. Continued antibiotics including Zosyn and they they will continue to evaluate the patient on inpatient basis. Pt has been inpatient for infection control, sx management, pain control, and bowel rest, she is progressing back to her baseline. Pt will be discharged today. Pt states that she continues to feel better but is still having mild pain in her mild LUQ, but it has been controlled with acetaminophen. Reports that she continues to have loose BM and that this is normal per surg. I updated her this may just be due to abx, her diet, recent disease. Discussed the D/C plan with her including oral abx and surg f/u for sx management and cscope. Pt agreeable. Status at Discharge Cognitive/behavioral status at discharge: stable Functional status at discharge: independent ambulation Overall status at discharge: patient is progressing back to baseline Time Spent with Patient Time attestation: Total time spent providing and/or coordinating discharge services: Exam Narrative: Pt lying in bed Const: General: no acute distress HENMT: Face/Nose/Sinus: Normal nares present Mouth: Yes moist mucous membranes Eyes: General: appearance normal, both eyes and all related structures Sclera: sclerae normal Neck: Neck: supple and no JVD Resp: Effort & Inspection: normal respiratory effort Auscultation: clear to auscultation bilaterally Cardio: Rate: regular rate Rhythm: regular rhythm GI: Inspection: non-distended Auscultation: normal bowel sounds Other: Mild TTP LUQ Skin: General skin exam: normal color and no rashes or lesions noted Wounds: no wounds Neuro: Cranial nerves: Yes Equal, round and reactive pupils present Speech: normal speech Motor exam (neuro): Normal motor muscle tone present throughout Sensory Exam: normal sensation Extrem: General: normal to inspection and no pedal edema Psych: Mental Status: mental status grossly normal Affect: normal affect DS: Data Data Completed and Pending Pending studies at discharge: Final blood culture results. Prelim neg Labs on day of discharge: Labs from last 24 hours 03/11/25 04:55 WBC 9.4 RBC 4.05 L Hgb 11.8 L Hct 36.7 L MCV 90.6 MCH 29.1 MCHC 32.2 RDW 14.6 H Plt Count 338 MPV 9.8 Immature Gran % (Auto) 0.7 H Neut % (Auto) 54.4 Lymph % (Auto) 34.6 Casey % (Auto) 6.7 Eos % (Auto) 2.5 Baso % (Auto) 1.1 Lymph # (Auto) 3.26 H Casey # (Auto) 0.6 Eos # (Auto) 0.2 Baso # (Auto) 0.1 Abs Immat Gran (auto) 0.07 H Absolute Neuts (auto) 5.1 Absolute Nucleated RBC 0.000 Nucleated RBC % 0.0 Sodium 142 Potassium 3.3 L Chloride 110 H Carbon Dioxide 23 Anion Gap 9 BUN 4 L Creatinine 0.84 Estim Creat Clear Calc 73 Estimated GFR > 60 Glucose 88 Calcium 9.1 Total Bilirubin 0.7 AST 22 ALT 22 Alkaline Phosphatase 54 Total Protein 6.0 L Albumin 3.8 Preliminary micro results at discharge 03/06/25 18:48 Blood Culture - Preliminary Blood 03/06/25 18:58 Blood Culture - Preliminary Blood Discharge Plan Discharge Attending physician on discharge: Ann Paulson Consulting providers: James Crystal Discharging Clinician: Ann Paulson Anticipated Discharge Date/Time: 03/11/25 14:00 Patient Disposition: Home Activity: may shower and as tolerated Diet: low fiber Discharge Instructions: Continue taking acetaminophen (Tylenol) for your pain. Surgery is going to write you a prescription for oral antibiotics. Remember to have food on your stomach before taking oral antibiotics and to finish the full course of this medication. Remember to incorporate yogurt or probiotics while also taking these antibiotics to grove off any yeast infection and more inflammation. Ask your primary care provider (or your insurance provider) on the option of incorporating a dietitian into your care and what this would look like, this could be beneficial for you. You can begin to incorporate your Metamucil again if you are still experiencing loose stools after 4-5 days. Continue to check your blood pressure and blood sugar at home if applicable. Keep your scheduled appts with your primary care provider and any specialist that you may see. Return to the emergency department if you develop sudden shortness of breath, chest pain, a fever of greater than 101.5, or nausea, vomiting, abd pain, or diarrhea that does not go away. Follow-up with your primary care provider within 1-2 weeks, they will want to be updated on your inpatient stay in the hospital. Thank you for choosing [facility] for your healthcare needs. Patient Instructions: Antibiotic Form, Diverticulitis (GEN), Low Fiber Diet (GEN) Patient Language: Lithuanian Stand Alone Forms: General Discharge Information Follow-up/Referrals: Anna Dean MD [Primary Care Provider] - 2 Weeks James Crystal MD [Physician] - 2 Weeks (Follow-up with Dr. Crystal in the office in 1 to 2 weeks. Patient to call [phone] for an appointment.) Discharge Medications: New amoxicillin-pot clavulanate 875-125 mg tablet 1 tablet PO Q12H Qty: 20 1RF Continued levocetirizine [Xyzal] 5 mg Tablet 5 mg PO HS [id number]-calcium carb-K1 400 mcg-500 mg calcium-20 mcg tablet 1 tablet PO DAILY calcium carbonate-vitamin D3 [Os-Dylon 500 + D3] 500 mg-15 mcg (600 unit) tablet 3 tablet PO DAILY folic acid 1 mg tablet 1 mg PO DAILY magnesium 250 mg tablet 250 mg PO DAILY alprazolam 0.5 mg tablet 0.5 mg PO TID PRN (Reason: anxiety) Qty: 60 5RF atorvastatin 10 mg tablet 10 mg PO DAILY Qty: 90 3RF buspirone 5 mg tablet 5 mg PO TID Qty: 270 3RF levothyroxine 88 mcg tablet 88 mcg PO DAILY Qty: 90 3RF omeprazole 40 mg capsule,delayed release(DR/EC) See Rx Instructions .ROUTE .COMPLEX Qty: 90 3RF Dose Instruction: TAKE ONE CAPSULE BY MOUTH DAILY Rx Instructions: TAKE ONE CAPSULE BY MOUTH DAILY Date of admission: 03/07/25 07:44 Primary Care Provider: Anna Dean Admitting Provider: Miya Torre Attending physician on admission: Ann Paulson Condition: Stable Quality VTE Prophylaxis VTE prophylaxis: mechanical ordered Hospitalist MIPS Heart Failure (Exclusion) Patient has history of Heart Transplant or Left Ventricular Assistive Device?: No IF YES, STOP HERE Heart Failure (Qualifier) Patient has current or prior documentation of LVEF less than or equal to 40%, or mod/servere depressed LVSF?: No IF NO, STOP HERE
--- NOTE | 2025-03-11 11:35 | WPDPN ---
Progress Note: A&P Assessment and Plan (1) Perforation of sigmoid colon due to diverticulitis: Code(s): K57.20 - Diverticulitis of large intestine with perforation and abscess without bleeding Status: Acute Assessment and Plan: Doing well with non operative management of acute sigmoid diverticulitis with micro perforation. This is recurrent episode. Can discharge home today on oral antibiotics. Follow-up see me in the office in about 10 to 14 days. Will then discuss with her setting up a colonoscopy as an outpatient and then depending on the results of the colonoscopy discussion for possible elective sigmoid resection can be had with her. Stay on low-fiber diet for the next week. The patient switch to high-fiber diet. Stay on probiotics or use and eat yogurt with live cultures while on oral antibiotics. Subjective Date/time seen: 03/11/25 11:35 Interval history: Patient is still doing well today. Only minimal left lower quadrant pain. No nausea or vomiting. Still having multiple loose stools which are nonbloody. Tolerating a low-fiber diet. Exam GI: Other: Abdomen is soft and nondistended. Minimal tenderness to palpation left lower quadrant. No guarding or rebound. Objective Data Vital Signs Vital Signs: Vital Signs - 24 hr 03/10/25 13:49 03/10/25 20:00 03/10/25 21:23 Temperature 36.6 C Pulse Rate 75 80 Respiratory Rate 16 20 Blood Pressure 125/75 Pulse Oximetry 100 100 97 Oxygen Delivery Room Air Room Air Fraction of Inspired Oxygen 21 03/10/25 22:00 03/11/25 06:00 Temperature 36.3 C L 36.8 C Pulse Rate 60 60 Respiratory Rate 18 18 Blood Pressure 131/64 127/69 Pulse Oximetry 100 99 Oxygen Delivery Fraction of Inspired Oxygen Intake/Output Intake/Output: Intake & Output 03/08/25 03/09/25 03/10/25 03/11/25 23:59 23:59 23:59 23:59 Intake Total 3280 5500 2019 340 Balance 3280 5500 2019 340 Meds/Results Medications: Active Medications Generic Name Dose Route Start Last Admin Trade Name Freq PRN Reason Stop Dose Admin Acetaminophen 650 mg 03/06/25 21:04 03/11/25 09:30 Acetaminophen 325 Mg Tablet PO 650 mg Q4H PRN Administration Mild Pain (1-3) or Fever Hydrocodone Bitart/Acetaminophen 1 tab 03/08/25 11:45 03/10/25 05:52 Hydrocodone/Acetaminophen (*Crx) 5-325 Mg Tablet PO 1 tab Q4H PRN Administration Pain Rated 4-6 Alprazolam 1 mg 03/08/25 14:32 03/10/25 21:55 Alprazolam (*Crx) 0.5 Mg Tablet PO 1 mg QPM PRN Administration anxiety Atorvastatin Calcium 10 mg 03/08/25 09:00 03/11/25 09:25 Atorvastatin 10 Mg Tablet PO 10 mg DAILY RAHEEL Administration Buspirone HCl 5 mg 03/07/25 13:00 03/11/25 09:26 Buspirone Hcl 5 Mg Tablet PO 5 mg TID RAHEEL Administration Calcium Carbonate 1,500 mg 03/08/25 09:00 03/11/25 09:26 Calcium/Vitamin D 500 Mg/5 Mcg (200 I.U.) Tablet PO 500 mg QAM RAHEEL Administration Folic Acid 1 mg 03/08/25 09:00 03/11/25 09:26 Folic Acid 1 Mg Tablet PO 1 mg DAILY RAHEEL Administration Piperacillin/Tazobactam/Dextrose 3.375 gm in 50 mls @ 100 mls/hr 03/07/25 11:00 03/11/25 06:00 Zosyn 3.375 Gm/Ns 50 Ml IVPB Infused Q6HR RAHEEL Infusion Levothyroxine Sodium 88 mcg 03/08/25 06:30 03/11/25 05:51 Levothyroxine Sodium 88 Mcg Tablet PO 88 mcg DAILY@0630 RAHEEL Administration Loratadine 10 mg 03/07/25 21:00 03/10/25 21:54 Loratadine 10 Mg Tablet PO 10 mg HS RAHEEL Administration Magnesium Oxide 200 mg 03/08/25 09:00 03/11/25 09:26 Magnesium Oxide 200 Mg Tablet PO 200 mg DAILY RAHEEL Administration Morphine Sulfate 4 mg 03/06/25 21:04 03/08/25 18:58 Morphine Sulfate (*Crx) 4 Mg/Ml Inj IV PUSH 4 mg Q2H PRN Administration Pain Rated 7-10 Ondansetron HCl 4 mg 03/06/25 21:04 03/08/25 18:58 Ondansetron Inj 4 Mg/2 Ml Vial IV PUSH 4 mg Q4H PRN Administration Nausea Pantoprazole Sodium 40 mg 03/07/25 17:00 03/11/25 09:26 Pantoprazole 40 Mg Tablet PO 40 mg BID RAHEEL Administration Labs Labs: Laboratory Results - last 24 hr 03/11/25 04:55 WBC 9.4 RBC 4.05 L Hgb 11.8 L Hct 36.7 L MCV 90.6 MCH 29.1 MCHC 32.2 RDW 14.6 H Plt Count 338 MPV 9.8 Immature Gran % (Auto) 0.7 H Neut % (Auto) 54.4 Lymph % (Auto) 34.6 Mitchell % (Auto) 6.7 Eos % (Auto) 2.5 Baso % (Auto) 1.1 Lymph # (Auto) 3.26 H Mitchell # (Auto) 0.6 Eos # (Auto) 0.2 Baso # (Auto) 0.1 Abs Immat Gran (auto) 0.07 H Absolute Neuts (auto) 5.1 Absolute Nucleated RBC 0.000 Nucleated RBC % 0.0 Sodium 142 Potassium 3.3 L Chloride 110 H Carbon Dioxide 23 Anion Gap 9 BUN 4 L Creatinine 0.84 Estim Creat Clear Calc 73 Estimated GFR > 60 Glucose 88 Calcium 9.1 Total Bilirubin 0.7 AST 22 ALT 22 Alkaline Phosphatase 54 Total Protein 6.0 L Albumin 3.8
== END 2025-03-11 12:25 | disposition home or self-care (01) | DRG 392 ==
LOC: ANHED 21:14 → ANH3MEDSUR 21:52 → ANH2MED 22:27
PROVIDERS: Physician Assistant; Admitting Provider Internal Medicine; Emergency Provider Student in an Organized Health Care Education/Training Program; PCP Family Medicine; Visit Provider Internal Medicine
DX: K57.20 Diverticulitis of large intestine with perforation and abscess without bleeding (principal); I10 Essential (primary) hypertension; E78.5 Hyperlipidemia, unspecified; F41.9 Anxiety disorder, unspecified; F32.A Depression, unspecified; Z85.3 Personal history of malignant neoplasm of breast; Z98.1 Arthrodesis status
CPT/HCPCS: 36415; 80053; 83605; 85025; 87040; 96365; 96366; 96375; 96376; 99285; A9270; G0378; J2270; J2405; J2543; J7120

== ENCOUNTER 2025-03-15 13:40 | Outpatient (CLI) | payer BC, SELFPAY ==
--- OUTSIDE RECORDS SUMMARY | 2025-03-15 14:18 | XMS_ITS | Encounter Summary ---
Author Organization [facility] Address [address] [place] [address] Care Team Providers Care Research Environmental Scientist Name Role Phone Fred Dean MD Primary Care Provider [phone]- [phone] Reason for Visit * Reason Onset Date Comments MEDICATION REFILL 05/18/2018 Med Question 05/18/2018 Encounter Details Date Type Department Care Team (Late st Contact Info) Description 05/18/2018 Telephone [facility] [address] [place] [address] Latasha Whitehead MD [address] [id number] MEDICATION REFILL; Med Question Social History Tobacco Use Types Packs/Day Years Used Date Smoking Tobacco: Never Smokeless Tobacco: Never Alcohol Use Standard Drinks/Week Comments Yes 0 (1 standard drink = 0.6 oz pur e alcohol) Comments Unknown Sex and Gender Information Value Date Recorded Sex Assigned at Not on file 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 Can you let Hafsa know? * Telephone Encounter - Olga Deluca RN - 05/18/2018 10:09 AM CDT Telephone call to [facility]. Informed pt is menopausal. [facility] states [facility] does not dispenseAddyi [...] is patient is pre or post menopausal. [facility] callback# [phone] documented in this encounter Plan of Treatment Not on file documented as of this encounter Visit Diagnoses Not on filedocumented in this encounter Care Teams Research Environmental Scientist Relationship Specialty Start Date End Date Fred Dean MD [address] [place] [id number] PCP - General 10/09/08 documented as of this encounter
--- OUTSIDE RECORDS SUMMARY | 2025-03-15 14:19 | XMS_ITS | Clinical Summary ---
Author Organization [facility] Address [address] [place] [address] Care Team Providers Care Photographic Specialist Name Role Phone Fred Dean MD Primary Care Provider [phone]- [phone] Source Comments [facility],non-owned Affiliates and Associated Physician Practices is amultiple site organization consisting of ambulatory clinics and hospital sitesin [place], [place], [place] and [place]. This disclosure is being madepursuant to the Care Everywhere program and may not contain all information available regarding this patient. 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
== END 2025-03-15 13:41 | disposition home or self-care (01) ==
LOC: ANHGOSHLAB 13:41
PROVIDERS: PCP Family Medicine; Visit Provider Student in an Organized Health Care Education/Training Program
DX: E87.6 Hypokalemia (principal)
CPT/HCPCS: 36415; 84132